=== PATIENT | female | born 1960 | race Caucasian/White ===

== ENCOUNTER 2016-12-28 17:13 | Inpatient (IN) | payer BC, OTHER ==
[2016-12-28] VITALS (13 sets, daily range): BP systolic 80–124; BP diastolic 44–75; PULSE 83–143; TEMP 37; O2SAT 93–99; Ht 162.6 cm; Wt 67.6 kg
[~2016-12-28] VITALS: Ht 162.6 cm; Wt 67.6 kg
[2016-12-28] MEDS ORDERED: SODIUM CHLORIDE 0.9% 1000ML 500 ML IV ONE ×2 (17:28)
[2016-12-28] MEDS ORDERED: ACETAMINOPHEN 325 MG TAB PO ONE (17:30)
--- NOTE | 2016-12-28 17:44 | EMERGENCY ROOM VISIT NOTE ---
History Report prepared by Parish: Wellington Crouch Under the Supervision of: Dr. Nette Rodriguez M.D. First contact with patient: 17:27 Chief Complaint: FEVER Stated Complaint: FEVER 104 DEGREE History of Present Illness The patient is a 56 year old female who presents to the Emergency Room with complaints of a worsening fever for the past week and a half which got to 104 today. She additionally is complaining of back pain, and earlier in the week she was having hematuria and pain with urination, and she states that last night she vomited. She is not currently on any antibiotics. The patient states that she has a history of anemia, and she is bipolar. She states that she has not had any recent medication changes. She additionally states that her white blood cell count is chronically high. Source of History: patient Onset: a week and a half ago Position: other (global) Quality: other (fever) Timing: worsening Associated Symptoms: + vomiting, + back pain, + urinary symptoms Review of Systems See HPI for pertinent positives & negatives. A total of 10 systems reviewed and were otherwise negative. Past Medical & Surgical Medical Problems: (1) Bipolar disorder (2) Kidney stone (3) Pernicious anemia (4) Sepsis Family History Heart disease Hypertension Kidney disease Kidney stones Seizures Social History Smoking Status: Current Every Day Smoker Marital Status: Housing Status: lives with family Occupation Status: employed Current/Historical Medications Scheduled Citalopram (Citalopram Hydrobromide), 30 MG PO QAM Cyanocobalamin (Cyanocobalamin), 1 DOSE INJ [id number] Doxepin (Sinequan), 50 MG PO HS Hydrochlorothiazide (Hydrochlorothiazide), 25 MG PO DAILY Levothyroxine Sodium (Synthroid), 88 MCG PO QAM Lorazepam (Ativan), 1 MG PO HS Simvastatin (Zocor), 40 MG PO DAILY Topiramate (Topamax), 100 MG PO QPM Topiramate (Topamax), 50 MG PO QAM Allergies Coded Allergies: Iron Dextran (Unverified Allergy, Unknown, RASH, 12/28/16) Physical Exam Vital Signs Date Time Temp Pulse Resp B/P (MAP) Pulse Ox O2 Delivery O2 Flow Rate FiO2 12/28/16 19:38 77/52 12/28/16 19:37 77 18 77/52 98 Room Air 12/28/16 19:36 78 18 96 9/19/17 19:31 76 21 94 12/28/16 19:26 74 20 94 12/28/16 19:24 72/43 12/28/16 19:23 72 18 72/43 98 Room Air 12/28/16 19:21 78 21 95 12/28/16 19:18 58/43 12/28/16 19:16 75 20 95 12/28/16 19:11 76 22 93 12/28/16 19:06 77 24 93 12/28/16 19:02 80/47 12/28/16 19:01 79 24 94 12/28/16 18:56 79 22 93 12/28/16 18:54 77/50 12/28/16 18:50 37.2 12/28/16 18:31 99/56 12/28/16 18:13 91 27 93 12/28/16 18:01 86/63 12/28/16 17:58 93 28 92 12/28/16 17:49 99 98/61 97 Room Air 12/28/16 17:48 97 Room Air 12/28/16 17:43 98 27 12/28/16 17:41 100 12/28/16 17:39 98/61 12/28/16 17:22 39.3 108 22 90/58 93 Room Air Physical Exam Vital signs reviewed. General: Ill-appearing female, in no significant distress. HEENT: No scleral icterus, PERRLA, neck supple. Atraumatic. Cardiovascular: Regular rate and rhythm, no extra sounds. Pulmonary: Clear to auscultation bilaterally, normal work of breathing. Abdomen: Soft, nontender, nondistended, positive bowel sounds. Musculoskeletal: No CVA tenderness. Atraumatic, no peripheral edema. Neurologic: Patient awake alert and oriented x 3, full strength in all 4 extremities. Cranial nerves 2 through 12 grossly intact. Skin: Warm, dry, no rash Medical Decision & Procedures ER Provider Diagnostic Interpretation: Radiology results as stated below per my review and radiologist interpretation: CHEST ONE VIEW PORTABLE CLINICAL HISTORY: Sepsis dyspnea COMPARISON STUDY: No previous studies for comparison. FINDINGS: The bones soft tissues and hemidiaphragms are normal. The cardiomediastinal silhouette is normal. The lungs are clear. The pulmonary vasculature is normal. IMPRESSION: Negative chest. The above report was generated using voice recognition software. It may contain grammatical, syntax or spelling errors. Electronically signed by: Malik Hensley M.D. 12/28/2016 6:07 PM Dictated Date/Time: 12/28/2016 6:07 PM ABD/PELVIS NO IV OR ORAL CONT CT DOSE: 275.32 mGy.cm HISTORY: Fever fever, back pain, sepsis. Stone TECHNIQUE: Multiaxial CT images of the abdomen and pelvis were performed without contrast. A dose lowering technique was utilized adhering to the principles of ALARA. COMPARISON STUDY: None. FINDINGS: Lung bases are clear. Liver spleen and pancreas appear unremarkable. 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 These are considered stable. Right kidney is negative for calcification or hydronephrosis. Left kidney demonstrates moderate edematous change and hydronephrosis. There is a 5 mm calculus at the left ureteropelvic junction. Moderate edematous and infiltrative change left kidney suggest potential superimposed pyelonephritis. Bowel pattern suggests a mild reactive ileus. There are no obstructive characteristics. The appendix is normal. Bladder contains a Herrera catheter. No significant free fluid within the pelvic cul-de-sac. IMPRESSION: 1. 5 mm obstructing calculus proximal left ureter at the left ureteropelvic junction. 2. Edematous change of left kidney with infiltrative change of the left renal perinephric fat. 3. the possibility of superimposed pyelonephritis must be considered. The above report was generated using voice recognition software. It may contain grammatical, syntax or spelling errors. Electronically signed by: Malik Hensley M.D. 12/28/2016 6:53 PM Dictated Date/Time: 12/28/2016 6:49 PM Laboratory Results 12/28/16 17:48 Red Blood Count 5.01, Mean Corpuscular Volume 85.6, Mean Corpuscular Hemoglobin 29.5, Mean Corpuscular Hemoglobin Concent 34.5, Mean Platelet Volume 10.5, Neutrophils (%) (Auto) 85.7, Lymphocytes (%) (Auto) 3.8, Monocytes (%) (Auto) 9.4, Eosinophils (%) (Auto) 0.0, Basophils (%) (Auto) 0.1, Neutrophils # (Auto) 24.31, Lymphocytes # (Auto) 1.08, Monocytes # (Auto) 2.68, Eosinophils # (Auto) 0.01, Basophils # (Auto) 0.02 Test 12/28/16 17:48 12/28/16 18:31 12/28/16 19:15 White Blood Count 28.38 K/uL (4.8-10.8) Red Blood Count 5.01 M/uL (4.2-5.4) Hemoglobin 14.8 g/dL (12.0-16.0) Hematocrit 42.9 % (37-47) Mean Corpuscular Volume 85.6 fL (80-100) Mean Corpuscular Hemoglobin 29.5 pg (25-34) Mean Corpuscular Hemoglobin Concent 34.5 g/dl (32-36) Platelet Count 325 K/uL (130-400) Mean Platelet Volume 10.5 fL (7.4-10.4) Neutrophils (%) (Auto) 85.7 % Lymphocytes (%) (Auto) 3.8 % Monocytes (%) (Auto) 9.4 % Eosinophils (%) (Auto) 0.0 % Basophils (%) (Auto) 0.1 % Neutrophils # (Auto) 24.31 K/uL (1.4-6.5) Lymphocytes # (Auto) 1.08 K/uL (1.2-3.4) Monocytes # (Auto) 2.68 K/uL (0.11-0.59) Eosinophils # (Auto) 0.01 K/uL (0-0.5) Basophils # (Auto) 0.02 K/uL (0-0.2) RDW Standard Deviation 42.5 fL (36.4-46.3) RDW Coefficient of Variation 13.6 % (11.5-14.5) Immature Granulocyte % (Auto) 1.0 % Immature Granulocyte # (Auto) 0.28 K/uL (0.00-0.02) Red Blood Cell Morphology Unremarkable Prothrombin Time 11.2 SECONDS (9.0-12.0) Prothromb Time International Ratio 1.0 (0.9-1.1) Activated Partial Thromboplast Time 32.3 SECONDS (21.0-31.0) Partial Thromboplastin Ratio 1.2 Est Creatinine Clear Calc Drug Dose 26.5 ml/min Total Bilirubin 1.1 mg/dl (0.2-1) Aspartate Amino Transf (AST/SGOT) 18 U/L (15-37) Alanine Aminotransferase (ALT/SGPT) 27 U/L (12-78) Alkaline Phosphatase 165 U/L (45-117) Total Protein 7.6 gm/dl (6.4-8.2) Albumin 3.1 gm/dl (3.4-5.0) Globulin 4.5 gm/dl (2.5-4.0) Albumin/Globulin Ratio 0.7 (0.9-2) Procalcitonin 3.84 ng/ml (0-0.5) Chemistry Specimen Hemolysis Urine Color DK YELLOW Urine Appearance CLOUDY (CLEAR) Urine pH 5.0 (4.5-7.5) Urine Specific [place] 1.019 (1.000-1.030) Urine Protein 1+ (NEG) Urine Glucose (UA) NEG (NEG) Urine Ketones NEG (NEG) Urine Occult Blood 2+ (NEG) Urine Nitrite POS (NEG) Urine Bilirubin 1+ (NEG) Urine Urobilinogen NEG (NEG) Urine Leukocyte Esterase MODERATE (NEG) Urine WBC (Auto) >30 /hpf (0-5) Urine RBC (Auto) 0-4 /hpf (0-4) Urine Hyaline Casts (Auto) 0 /lpf (0-5) Urine Epithelial Cells (Auto) 20-30 /lpf (0-5) Urine Bacteria (Auto) 4+ (NEG) Urine Pathogenic Casts See comments /lpf (0) Bedside Lactic Acid Venous 0.82 mmol/L (0.90-1.70) Laboratory results per my review. Medications Administered Medications (Trade) Dose Ordered Sig/Jimmy Route Start Time Stop Time Status Last Admin Dose Admin Sodium Chloride 500 ml @ 999 mls/hr Q31M ONCE IV 12/28/16 17:28 12/28/16 17:58 DC 12/28/16 17:50 999 MLS/HR Sodium Chloride 500 ml @ 999 mls/hr Q31M ONCE IV 12/28/16 17:28 12/28/16 17:58 DC 12/28/16 17:28 999 MLS/HR Acetaminophen (Tylenol Tab) 650 mg ONE ONCE PO 12/28/16 17:30 12/28/16 17:31 DC 12/28/16 17:58 650 MG Piperacillin Sod/ Tazobactam Sod (Zosyn Iv) 4.5 gm NOW STAT IV 12/28/16 18:23 12/28/16 18:24 DC 12/28/16 18:49 4.5 GM Potassium Chloride (Kcl 10 Meq / Wtr) 20 meq NOW STAT IV 12/28/16 18:58 12/28/16 18:59 DC 12/28/16 19:14 10 MEQ Sodium Chloride 1,000 ml @ 999 mls/hr Q1H1M STAT IV 12/28/16 19:03 12/28/16 20:03 DC 12/28/16 19:03 999 MLS/HR Levofloxacin (Levaquin / D5W) 750 mg NOW STAT IV 12/28/16 19:03 12/28/16 19:04 DC 12/28/16 19:22 750 MG Lorazepam (Ativan Inj) 0.5 mg Q4H PRN IV 12/28/16 19:30 01/27/17 19:29 12/28/16 22:45 0.5 MG Levothyroxine Sodium 50 mcg/ Syringe 2.5 ml @ 2 mls/min DAILY@09 IV 12/28/16 19:30 01/27/17 19:29 12/28/16 22:24 2 MLS/MIN ECG Indication: other (fever) Rate (beats per minute): 97 Rhythm: normal sinus Findings: no ectopy, other (Non-specific T wave abnoramlity in the anterolateral leads) ED Course 1727: Past medical records reviewed. The patient was evaluated in room A4. A complete history and physical examination was performed. 1728: Sodium Chloride 500 ml @ 999 mls/hr IV, Sodium Chloride 500 ml @ 999 mls/ hr IV 1730: Tylenol Tab 650mg PO 1823: Zosyn IV 4.5gm IV 1855: I reevaluated the patient, and her blood pressure was still low. I discussed the treatment plan with her. 1858: Potassium Chloride 20meq IV 1903: Levofloxacin 750mg IV, Sodium Chloride 1000 ml @ 999 mls/hr IV 1905: I reviewed the patient's case with Dr. Daily. She will evaluate the patient for further management. Medical Decision Differential Diagnoses Influenza, other viral illness, pneumonia, urinary tract infection, metabolic abnormality, medication effect, cellulitis, meningitis, intra-abdominal source. This patient was evaluated and appeared to be septic, blood pressure noted to be in the 80s systolic. Patient is febrile. She was given Tylenol 650 mg orally. IV access was obtained and blood cultures were drawn. Patient's pannicular lactic acid is normal. She did require resuscitation with 2 L of normal saline solution. CT scan of the abdomen and pelvis was performed and reveals an obstructing ureteral stone. Patient's white blood cell count is 28, 000. She was given IV Zosyn, IV Levaquin. UA is consistent with infection. Dr. Newton of urology was consulted and has agreed to evaluate the patient for surgical management. I did speak with the hospitalist service will evaluate the patient for medical management. Patient is aware of the plan and agrees. Medication Reconcilliation Current Medication List: was personally reviewed by me Blood Pressure Screening Patient's blood pressure: Low blood pressure Managed by the hospitalist Consults Time Called: 1851 Consulting Physician: Dr. Daily Returned Call: [phone] I reviewed the patient's case with Dr. Daily. She will evaluate the patient for further management. Impression Primary Impression: Sepsis Additional Impressions: Hydronephrosis with renal and ureteral calculous obstruction UTI (urinary tract infection) Critical Care I have personally spent greater than 35 minutes of critical care time in the direct management of this patient. This includes bedside care, interpretation of diagnostic studies, and testing, discussion with consultants, patient, and family members, and other required patient management activities. This 35 minutes is in excess of all separately billable procedures. Scribe Attestation The scribe's documentation has been prepared under my direction and personally reviewed by me in its entirety. I confirm that the note above accurately reflects all work, treatment, procedures, and medical decision making performed by me. Departure Information Dispostion Being Evaluated By Hospitalist Referrals No Doctor, Assigned (PCP) Patient Instructions My [facility] Problem Qualifiers
[2016-12-28] MEDS ORDERED: OPTIRAY 320 IV PRN (17:45)
[2016-12-28 18:05] LABS: HEMATOCRIT 42.9 % (37-47); MEAN CELL VOLUME 85.6 fL (80-100); MEAN CORPUSCULAR HEMOGLOBIN 29.5 pg (25-34); MEAN CORPUSCULAR HGB CONC 34.5 g/dl (32-36); MEAN PLATELET VOLUME 10.5 fL (7.4-10.4); PLATELET COUNT 325 K/uL (130-400); RED BLOOD COUNT 5.01 M/uL (4.2-5.4); WHITE BLOOD COUNT 28.38 K/uL (4.8-10.8)
--- NOTE | 2016-12-28 18:08 | DIAGNOSTIC IMAGING REPORT ---
CHEST ONE VIEW PORTABLE CLINICAL HISTORY: Sepsis dyspnea COMPARISON STUDY: No previous studies for comparison. FINDINGS: The bones soft tissues and hemidiaphragms are normal. The cardiomediastinal silhouette is normal. The lungs are clear. The pulmonary vasculature is normal. IMPRESSION: Negative chest. The above report was generated using voice recognition software. It may contain grammatical, syntax or spelling errors. Electronically signed by: Malik Hensley M.D. 12/28/2016 6:07 PM Dictated Date/Time: 12/28/2016 6:07 PM
[2016-12-28] MEDS ORDERED: PIPERACILLIN/TAZOBACTAM 4.5 GM/100ML D5W IV STA (18:23)
[2016-12-28] MEDS ORDERED: CYNI1000 INJ (18:24)
[2016-12-28] MEDS ORDERED: SIMV40TA2 PO (18:24)
[2016-12-28] MEDS ORDERED: DOXE50CA3 PO (18:24)
[2016-12-28] MEDS ORDERED: CLX/20 PO (18:24)
[2016-12-28] MEDS ORDERED: ATV/1 PO (18:24)
[2016-12-28] MEDS ORDERED: TOPI50TA16 PO ×2 (18:24)
[2016-12-28] MEDS ORDERED: HYDR25TA5 PO (18:24)
[2016-12-28] MEDS ORDERED: SYN88 PO (18:24)
[2016-12-28 18:27] LABS: BUN/CREATININE RATIO 9.9 (10-20); CALCIUM 8.7 mg/dl (8.5-10.1); CREATININE 2.1 mg/dl (0.60-1.20); POTASSIUM 2.7 mmol/L (3.5-5.1)
[2016-12-28 18:28] LABS: PARTIAL THROMBOPLASTIN RATIO 1.2; PROTHROMBIN TIME (PATIENT) 11.2 SECONDS (9.0-12.0)
[2016-12-28 18:31] LABS: ALB/GLOB RATIO 0.7 (0.9-2)
[2016-12-28 18:32] LABS: BASO % 0.1 %; BASO ABS # 0.02 K/uL (0-0.2); COMPLETE YES; LYMPH % 3.8 %; LYMPH ABS # 1.08 K/uL (1.2-3.4); MONO % 9.4 %; NEUT % 85.7 %
--- NOTE | 2016-12-28 18:55 | DIAGNOSTIC IMAGING REPORT ---
ABD/PELVIS NO IV OR ORAL CONT CT DOSE: 275.32 mGy.cm HISTORY: Fever fever, back pain, sepsis. Stone TECHNIQUE: Multiaxial CT images of the abdomen and pelvis were performed without contrast. A dose lowering technique was utilized adhering to the principles of ALARA. COMPARISON STUDY: None. FINDINGS: Lung bases are clear. Liver spleen and pancreas appear unremarkable. 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 These are considered stable. Right kidney is negative for calcification or hydronephrosis. Left kidney demonstrates moderate edematous change and hydronephrosis. There is a 5 mm calculus at the left ureteropelvic junction. Moderate edematous and infiltrative change left kidney suggest potential superimposed pyelonephritis. Bowel pattern suggests a mild reactive ileus. There are no obstructive characteristics. The appendix is normal. Bladder contains a Herrera catheter. No significant free fluid within the pelvic cul-de-sac. IMPRESSION: 1. 5 mm obstructing calculus proximal left ureter at the left ureteropelvic junction. 2. Edematous change of left kidney with infiltrative change of the left renal perinephric fat. 3. the possibility of superimposed pyelonephritis must be considered. The above report was generated using voice recognition software. It may contain grammatical, syntax or spelling errors. Electronically signed by: Malik Hensley M.D. 12/28/2016 6:53 PM Dictated Date/Time: 12/28/2016 6:49 PM
[2016-12-28] MEDS ORDERED: POTASSIUM CHLORIDE 10 MEQ / 100ML WTR IV STA (18:58)
[2016-12-28] MEDS ORDERED: LEVAQUIN 750MG / 150ML D5W IV STA (19:03)
[2016-12-28] MEDS ORDERED: SODIUM CHLORIDE 0.9% 1000ML 1,000 ML IV STA (19:03)
[2016-12-28 19:10] LABS: URINE APPEARANCE CLOUDY (CLEAR); URINE COLOR DK YELLOW; URINE EPITHELIAL CELL AUTO 20-30 /lpf (0-5); URINE NITRITE POS (NEG); URINE SPECIFIC GRAVITY 1.019 (1.000-1.030); UROBILINOGEN NEG (NEG); ZZURINE CULT IF INDIC CATH YES
--- NOTE | 2016-12-28 19:10 | History and Physical ---
History & Physical Date & Time of Service: Dec 28, 2016 at 19:10 Chief Complaint: Fever 104 Degree Primary Care Physician: No Doctor, Assigned History of Present Illness Source: patient, family Dora is a 56 yo F with hypertension, bipolar disorder, and hypothyroidism who presents with feeling unwell. She reports she has felt unwell the last few days and this morning was nauseated and threw up all her medications. She reports she had a fever the last few days which was 104F today. She had some vague back pain, but reports she usually does not feel any pain. She was septic upon arrival with hypotension, a WBC of 28 and a fever of 38.9. She was found to have a 5mm obstructing kidney stone on CT scan. She has been started on broad spectrum abx. She currently feels somewhat better, and is sitting comfortably speaking full sentences. She denies any past hx of kidney stones. Past Medical/Surgical History PMHx: Bipolar Hypothyroidism Depression HTN PSHx: Nasal septum surgery Family History Heart disease Hypertension Kidney disease Kidney stones Seizures Social History Smoking Status: Current Every Day Smoker Smokeless Tobacco Use: No Alcohol Use: none Drug Use: none Marital Status: Housing status: lives with family Occupational Status: employed Immunizations History of Influenza Vaccine: Unknown History of Tetanus Vaccine?: Unknown History of Pneumococcal: Unknown History of Hepatitis B Vaccine: Unknown Multi-Drug Resistant Organisms History of MDRO: No Allergies Coded Allergies: Iron Dextran (Unverified Allergy, Unknown, RASH, 12/28/16) Home Medications Scheduled Citalopram (Citalopram Hydrobromide), 30 MG PO QAM Cyanocobalamin (Cyanocobalamin), 1 DOSE INJ [id number] Doxepin (Sinequan), 50 MG PO HS Hydrochlorothiazide (Hydrochlorothiazide), 25 MG PO DAILY Levothyroxine Sodium (Synthroid), 88 MCG PO QAM Lorazepam (Ativan), 1 MG PO HS Simvastatin (Zocor), 40 MG PO DAILY Topiramate (Topamax), 100 MG PO QPM Topiramate (Topamax), 50 MG PO QAM Review of Systems See HPI for pertinent positives & negatives. A total of 10 systems reviewed and were otherwise negative. Physical Exam Vital Signs Date Time Temp Pulse Resp B/P (MAP) Pulse Ox O2 Delivery O2 Flow Rate FiO2 12/28/16 18:50 37.2 12/28/16 18:31 99/56 12/28/16 18:13 91 27 93 12/28/16 18:01 86/63 12/28/16 17:58 93 28 92 12/28/16 17:49 99 98/61 97 Room Air 12/28/16 17:48 97 Room Air 12/28/16 17:43 98 27 12/28/16 17:41 100 12/28/16 17:39 98/61 12/28/16 17:22 39.3 108 22 90/58 93 Room Air General Appearance: WD/WN, no apparent distress Head: normocephalic, atraumatic Eyes: normal inspection, PERRL ENT: hearing grossly normal Neck: supple, no JVD Respiratory/Chest: lungs clear, normal breath sounds, no respiratory distress Cardiovascular: regular rate, rhythm, no JVD, no murmur, normal peripheral pulses Abdomen/GI: normal bowel sounds, non tender, soft Back: no muscle spasm, + left CVA tenderness Extremities/Musculoskelatal: no calf tenderness, no pedal edema Neurologic/Psych: alert, oriented x 3 Skin: warm/dry, no rash Diagnostics Laboratory Results Results Past 24 Hours Test 12/28/16 17:48 12/28/16 18:31 Range/Units White Blood Count 28.38 4.8-10.8 K/uL Red Blood Count 5.01 4.2-5.4 M/uL Hemoglobin 14.8 12.0-16.0 g/dL Hematocrit 42.9 37-47 % Mean Corpuscular Volume 85.6 80-100 fL Mean Corpuscular Hemoglobin 29.5 25-34 pg Mean Corpuscular Hemoglobin Concent 34.5 32-36 g/dl Platelet Count 325 130-400 K/uL Mean Platelet Volume 10.5 7.4-10.4 fL Neutrophils (%) (Auto) 85.7 % Lymphocytes (%) (Auto) 3.8 % Monocytes (%) (Auto) 9.4 % Eosinophils (%) (Auto) 0.0 % Basophils (%) (Auto) 0.1 % Neutrophils # (Auto) 24.31 1.4-6.5 K/uL Lymphocytes # (Auto) 1.08 1.2-3.4 K/uL Monocytes # (Auto) 2.68 0.11-0.59 K/uL Eosinophils # (Auto) 0.01 0-0.5 K/uL Basophils # (Auto) 0.02 0-0.2 K/uL RDW Standard Deviation 42.5 36.4-46.3 fL RDW Coefficient of Variation 13.6 11.5-14.5 % Immature Granulocyte % (Auto) 1.0 % Immature Granulocyte # (Auto) 0.28 0.00-0.02 K/uL Red Blood Cell Morphology Unremarkable Prothrombin Time 11.2 9.0-12.0 SECONDS Prothromb Time International Ratio 1.0 0.9-1.1 Activated Partial Thromboplast Time 32.3 21.0-31.0 SECONDS Partial Thromboplastin Ratio 1.2 Sodium Level 127 136-145 mmol/L Potassium Level 2.7 3.5-5.1 mmol/L Chloride Level 90 98-107 mmol/L Carbon Dioxide Level 25 21-32 mmol/L Anion Gap 12.0 3-11 mmol/L Blood Urea Nitrogen 21 7-18 mg/dl Creatinine 2.10 0.60-1.20 mg/dl Est Creatinine Clear Calc Drug Dose 26.5 ml/min Estimated GFR () 30.2 Estimated GFR (Non- 26.0 BUN/Creatinine Ratio 9.9 10-20 Random Glucose 103 70-99 mg/dl Calcium Level 8.7 8.5-10.1 mg/dl Total Bilirubin 1.1 0.2-1 mg/dl Aspartate Amino Transf (AST/SGOT) 18 15-37 U/L Alanine Aminotransferase (ALT/SGPT) 27 12-78 U/L Alkaline Phosphatase 165 45-117 U/L Total Protein 7.6 6.4-8.2 gm/dl Albumin 3.1 3.4-5.0 gm/dl Globulin 4.5 2.5-4.0 gm/dl Albumin/Globulin Ratio 0.7 0.9-2 Procalcitonin 3.84 0-0.5 ng/ml Chemistry Specimen Hemolysis Microbiology Results 12/28/16 Blood Culture, Received Pending 12/28/16 Blood Culture, Received Pending CXR normal Impression Assessment and Plan 56 yo F - sepsis from infected kidney stone - to go to OR for stent placement emergently. Sepsis from L sided kidney stone Urology aware, Dr Newton present Starting Levophed due to persistent hypotension BCx obtained prior to Abx - will continue Zosyn and Vancomycin. Admit to ICU after surgery - Dr Anglin informed. On r/v, blood pressure has improved to 117 systolic. Holding all PO meds, will start post-op Pre-op CXR and EKG completed Hypokalemia Received 20mEq of K riders Will check a BMP post-op to evaluate Hypertension Will hold HCTZ for now Hypothyroidism Will convert to 50mcg IV Synthroid Bipolar affective disorder Holding home medications, restart when able VTE: SCDs. Code status: Full Dispo: OR then ICU Attending Addendum: I have physically seen and examined this patient, have directed the resident's medical activities, and agree with the H&P as noted above with the following exceptions as noted. The patient is awake, alert and oriented 3, well-developed and well-nourished , normocephalic and atraumatic, lying in bed and in mild distress. HEENT--PERRL, EOMI, mucous membranes and oropharynx dry. Neck--supple, no JVD or bruits, thyroid normal, trachea midline, no adenopathy. Heart--tachycardic and regular, no murmurs, rubs or gallops. Lungs--coarse breath sounds with wheezes throughout, no respiratory distress, no accessory muscle use. Abdomen--normal bowel sounds and soft, left CVA tenderness. Nondistended, no hernias or masses, no organomegaly. Extremities--no cyanosis, clubbing or edema. There are good distal pulses b/l. Dermatologic--normal skin turgor, normal color, warm and dry, no abnormal lymph nodes, no rash. Neurologic--cranial nerves II through XII grossly intact. Rheumatologic--normal range of motion, nontender, muscles and joints. Psychiatric--normal affect. Assessment and Plan: 1. 5 mm left UPJ obstructing kidney stone/left sided pyelonephritis/septic shock/acute kidney injury-- During assessment in the ED, the patient became acutely hypotensive with systolic blood pressure to a low of 74. The patient had already been receiving 2 L normal saline. She had been started on levofloxacin 500 mg IV, and Zosyn 4.5 g IV. Patient was given albumin 25 g IV, with repeat to be done in one hour. We started her on levophed infusion with titration parameters. Patient was seen by Dr. Newton from urology in the ED, who then took the patient to the OR with successful ureteral stent placement. The patient was then admitted to the ICU. She'll be continued on the following: Albumin 25 g IV every 4 hours 6 doses. Zosyn 3.375 mg IV every 8 hours. Vancomycin IV per pharmacokinetic dosing. Normal saline with potassium chloride 20 mEq 100 ML's per hour. CBC with differential, chemistry profile and magnesium levels every 6 hours for 24 hours. Acetaminophen 1000 mg IV every 8 hours when necessary. Lorazepam 0.5-1 mg IV every 4 hours when necessary. Hold HCTZ 25 mg by mouth daily. Bipolar disorder-- When taking by mouth: Continue Topamax 50 mg by mouth every morning and 100 mg by mouth every afternoon. Doxepin 50 mg by mouth at bedtime. Citalopram 30 mg by mouth every morning. Lorazepam as noted above. Hypothyroidism-- Continue levothyroxine sodium 88g by mouth or IV equivalent 44 g. Hyperlipidemia-- When taking by mouth: Continue simvastatin 40 mg by mouth daily. Level of Care Critical Care Advanced Directives Existing Advance Directive: No Existing Living Will: No Existing Power of Jewel Bearing Facer: No Resuscitation Status FULL RESUSCITATION VTE Prophylaxis VTE Risk Assessment Done? Y/N: Yes Risk Level: Moderate Given or contraindicated: SCD's Social Service Consult None Apply Note Total Time: Critical Care 30 - 74 minutes Resident Tracking Resident Involvement: Resident Care Provided Care Provided: Adult Hospital Medicine
[2016-12-28 19:14] LABS: MANUAL MICROSCOPIC REQUIRED? NO; REVIEW REQ? YES; URINE BILIRUBIN 1+ (NEG)
[2016-12-28] MEDS ORDERED: ONDANSETRON INJ 2 MG/ML 2 ML VIAL IV PRN (19:30)
[2016-12-28] MEDS ORDERED: ACETAMINOPHEN 325 MG TAB PO PRN (19:30)
[2016-12-28] MEDS ORDERED: ALUMINUM/MAGNESIUM/SIMETH (MAALOX MAX) 30 ML UDC PO PRN (19:30)
[2016-12-28] MEDS ORDERED: POLYETHYLENE (MIRALAX) 17 GM PACK PO PRN (19:30)
[2016-12-28] MEDS ORDERED: MAGNESIUM HYDROXIDE SUSP 30 ML UDC PO PRN (19:30)
[2016-12-28] MEDS ORDERED: NOREPINEPHRINE BIT INJ 8 MG in DEXTROSE 5% 500ML 500 ML IV PRN (19:45)
[2016-12-28] MEDS ORDERED: ALBUMIN HUMAN 25% 12.5 GM/50 ML VIAL IV ONE ×3 (19:51→21:00)
[2016-12-28] MEDS ORDERED: VANCOMYCIN INJ 1,000 MG in SODIUM CHLORIDE 0.9% 250ML 250 ML IV STA (20:12)
--- NOTE | 2016-12-28 20:18 | Urology Consultation ---
History General Date of Service: Dec 28, 2016. Primary Care Physician: No Doctor, Assigned History of Present Illness 56 y/o female with history of bipolar disease who is a poor historian . She is here with her sister gives the history and who reports she has been depressed but starting 2 weeks ago she became lethargic . She had hematuria over a week ago and saw a doctor . She gave a urine sample to her doctor who told her it was clear , The next day she complained of soreness in her flank and she had a temp of 102 . This was Last . She has become increasingly sick and developed incontinence and had diarrhea . Finally her temp was 103 today and the sister insisted on bringing her to the ER, She presents hypotensive with a wbc of [address] that shows a stone at the l upj with a swollen kidney but modest hydronephrosis. She is being resuscitated in the ER with pressoes and fluid and anesthesia is coming to evaluate her for a stent Laboratory Labs were reviewed and are within normal limits unless listed below. Labs are available in the chart and at [facility] Problem List Medical Problems: (1) Hydronephrosis with renal and ureteral calculous obstruction Status: Acute Past History alcohol addiction, bipolar disorder Additional Comments: pelvic mesh surgery foot surgery Family History Heart disease Hypertension Kidney disease Kidney stones Seizures Social History Alcohol: history of alcohol abuse (quit 2 years ago) Marital status: Occupation status: employed History of MDRO No Allergies Coded Allergies: Iron Dextran (Unverified Allergy, Unknown, RASH, 12/28/16) Medications Home Medications: Home Meds and Scripts Medications Dose Route/Sig Max Daily Dose Days Date Category Ativan (Lorazepam) 1 Mg Tab 1 Mg PO HS 12/28/16 Reported Hydrochlorothiazide 25 Mg Tab 25 Mg PO DAILY 12/28/16 Reported Zocor (Simvastatin) 40 Mg Tab 40 Mg PO DAILY 12/28/16 Reported Citalopram Hydrobromide (Citalopram) 20 Mg Tab 30 Mg PO QAM 12/28/16 Reported Synthroid (Levothyroxine Sodium) 88 Mcg Tab 88 Mcg PO QAM 12/28/16 Reported Topamax (Topiramate) 50 Mg Tab 50 Mg PO QAM 12/28/16 Reported Topamax (Topiramate) 50 Mg Tab 100 Mg PO QPM 30 12/28/16 Reported Cyanocobalamin 1,000 Mcg/Ml Inj 1 Dose INJ [id number] 12/28/16 Reported Sinequan (Doxepin HCl) 50 Mg Cap 50 Mg PO HS 12/28/16 Reported Inpatient Medications: Current Inpatient Medications Medications (Trade) Dose Ordered Sig/Jimmy Route Start Time Stop Time Status Last Admin Dose Admin Ioversol (Optiray 320) 111 ml UD PRN IV 12/28/16 17:45 01/01/17 17:44 Sodium Chloride 1,000 ml @ 999 mls/hr Q1H1M STAT IV 12/28/16 19:03 12/28/16 20:03 12/28/16 19:03 999 MLS/HR Acetaminophen (Tylenol Tab) 650 mg Q4H PRN PO 12/28/16 19:30 01/27/17 19:29 Al Hydrox/Mg Hydrox/Simethicone (Maalox Max Susp) 15 ml Q4H PRN PO 12/28/16 19:30 01/27/17 19:29 Magnesium Hydroxide (Milk Of Magnesia Susp) 30 ml Q12H PRN PO 12/28/16 19:30 01/27/17 19:29 Ondansetron HCl (Zofran Inj) 4 mg Q6H PRN IV 12/28/16 19:30 01/27/17 19:29 Polyethylene (Miralax Powder Packet) 17 gm DAILY PRN PO 12/28/16 19:30 01/27/17 19:29 Piperacillin Sod/ Tazobactam Sod 4.5 gm/Dextrose 120 ml @ 200 mls/hr Q6 IV 12/29/16 00:00 01/08/17 00:00 UNV Lorazepam (Ativan Inj) 0.5 mg Q4H PRN IV 12/28/16 19:30 01/27/17 19:29 UNV Levothyroxine Sodium 50 mcg/ Syringe 2.5 ml @ 2 mls/min DAILY@09 IV 12/28/16 19:30 01/27/17 19:29 UNV Norepinephrine Bitartrate 8 mg/ Dextrose 508 ml @ 0 mls/hr Q0M PRN IV 12/28/16 19:45 01/27/17 19:44 Albumin Human (Albumin 25%) 25 gm ONE ONCE IV 12/28/16 20:00 12/28/16 20:01 Albumin Human (Albumin 25%) 12.5 gm ONE ONCE IV 12/28/16 21:00 12/28/16 21:01 Albuterol/ Ipratropium (Duoneb) 3 ml QIDR INH 12/28/16 20:00 01/27/17 19:59 Review of Systems Review of Systems Constitutional: + fever Gastrointestinal: No abdominal pain Cardiovascular: No chest pain Respiratory: No shortness of breath Psychologic / Mental: + see HPI Female : + blood in urine, + leaking urine, + kidney stones Physical Exam Vital Signs: Vital Signs Past 12 Hours Date Time Temp Pulse Resp B/P (MAP) Pulse Ox O2 Delivery O2 Flow Rate FiO2 12/28/16 19:37 77 18 77/52 98 Room Air 12/28/16 19:23 72 18 72/43 98 Room Air 12/28/16 18:50 37.2 12/28/16 18:31 99/56 12/28/16 18:13 91 27 93 12/28/16 18:01 86/63 12/28/16 17:58 93 28 92 12/28/16 17:49 99 98/61 97 Room Air 12/28/16 17:48 97 Room Air 12/28/16 17:43 98 27 12/28/16 17:41 100 12/28/16 17:39 98/61 12/28/16 17:22 39.3 108 22 90/58 93 Room Air Physical Exam: General Appearance: + mild distress (pt reports having an extremely high pain tolerence) ENT: normal ENT inspection Neck: supple Respiratory/Chest: + rhonchi Extremities: normal range of motion, no pedal edema, no calf tenderness Neurologic/Psychiatric: + depressed affect Skin: warm/dry Lymphatic: no adenopathy (pt with flat affect) Assessment & Plan Assessment & Plan Imaging: CT Treatment Planned: cystoscopy w/ stent wish to place stent as soon as anesthesia clears her She has had unasyn and leveqiun and is to get vancomycin
[2016-12-28] MEDS: ALBUT/IPRATROP 3MG/0.5MG NEB 3 ML VIAL INH SCH (20:26)
[2016-12-28] MEDS ORDERED: CONRAY 30% 150ML BOTTLE ONE (20:35)
[2016-12-28] MEDS ORDERED: PIPERACILL/TAZOBAC CONSULT ACTIVE PRN (20:45)
[2016-12-28] MEDS ORDERED: VANCOMYCIN CONSULT ACTIVE PRN (20:45)
[2016-12-28] MEDS ORDERED: VANCOMYCIN INJ 1,500 MG in SODIUM CHLORIDE 0.9% 500ML 500 ML IV SCH (20:45)
[2016-12-28] MEDS ORDERED: LEVALBUTEROL/IPRATROPIUM NEB INH SCH (21:00)
[2016-12-28] MEDS ORDERED: KETAMINE HCL INJ 50 MG/ML 10 ML VIAL ONE (21:12)
[2016-12-28] MEDS ORDERED: FENTANYL CITRATE INJ 50 MCG/1 ML 2 ML VIAL ONE (21:17)
[2016-12-28] MEDS ORDERED: PROPOFOL IV EMULSION 10 MG/ML 20 ML VIAL IV ONE (21:25)
[2016-12-28] MEDS ORDERED: LEVALBUTEROL 1.25MG/0.5ML NEB INH PRN (21:45)
[2016-12-28] MEDS ORDERED: IPRATROPIUM BROMIDE NEB SOLN 0.02% 2.5 ML VIAL INH PRN (21:45)
--- NOTE | 2016-12-28 21:45 | DIAGNOSTIC IMAGING REPORT ---
RETROGRADE INCLUDES KUB CLINICAL HISTORY: KUB W/ RETROGRADE TECHNIQUE: Image intensifier COMPARISON STUDY: CT examination same date FINDINGS: Initial images demonstrate moderate patient respiratory motion artifact. This is followed by successful wire placement with coaxial stent placement. Proximal aspect of the stent is located appropriately. IMPRESSION: Successful left ureteral stent placement The above report was generated using voice recognition software. It may contain grammatical, syntax or spelling errors. Electronically signed by: Malik Hensley M.D. 12/28/2016 9:44 PM Dictated Date/Time: 12/28/2016 9:43 PM
--- NOTE | 2016-12-28 21:48 | [facility] Post Operative Brief Note ---
Immediate Operative Summary Operative Date Dec 28, 2016. Pre-Operative Diagnosis Left upj stone, urosepsis Post-Operative Diagnosis Left upj stone, urosepsis Procedure(s) Performed Cystoscopy, Left ureteral stent placement Surgeon Dr. Newton Stevedoring Supervisor Surgeon(s) none Estimated Blood Loss 5ml Findings obstruction at l upj Specimens None Drains burger Disposition Surgical ICU
--- NOTE | 2016-12-28 21:54 | Anesthesiology Progress Note ---
Anesthesia Post Op Note Date & Time Dec 28, 2016 at 21:52 Vital Signs Pain Intensity: 0 Vital Signs Past 12 Hours Date Time Temp Pulse Resp B/P (MAP) Pulse Ox O2 Delivery O2 Flow Rate FiO2 12/28/16 20:41 92 21 99 12/28/16 20:36 84 19 111/70 100 12/28/16 20:31 84 17 131/78 100 12/28/16 20:28 83 18 97 Nasal Cannula 3.0 12/28/16 20:26 83 9 119/69 100 12/28/16 20:21 77 21 118/71 100 12/28/16 20:16 77 18 119/74 99 12/28/16 20:11 75 12 99 12/28/16 20:09 74/49 12/28/16 20:06 73 20 96 12/28/16 20:03 Room Air 12/28/16 20:01 75 21 96 12/28/16 19:56 76 24 95 12/28/16 19:51 76 22 95 12/28/16 19:46 76 26 76/ 95 12/28/16 19:41 77 13 96 12/28/16 19:38 77/52 12/28/16 19:37 77 18 77/52 98 Room Air 12/28/16 19:36 78 18 96 12/28/16 19:31 76 21 94 12/28/16 19:26 74 20 94 12/28/16 19:24 72/43 12/28/16 19:23 72 18 72/43 98 Room Air 12/28/16 19:21 78 21 95 12/28/16 19:18 58/43 12/28/16 19:16 75 20 95 12/28/16 19:11 76 22 93 12/28/16 19:06 77 24 93 12/28/16 19:02 80/47 12/28/16 19:01 79 24 94 12/28/16 18:56 79 22 93 12/28/16 18:54 77/50 12/28/16 18:50 37.2 12/28/16 18:31 99/56 12/28/16 18:13 91 27 93 12/28/16 18:01 86/63 12/28/16 17:58 93 28 92 12/28/16 17:49 99 98/61 97 Room Air 12/28/16 17:48 97 Room Air 12/28/16 17:43 98 27 12/28/16 17:41 100 12/28/16 17:39 98/61 12/28/16 17:22 39.3 108 22 90/58 93 Room Air Notes Mental Status: alert / awake / arousable, participated in evaluation Pt Amnestic to Procedure: Yes Nausea / Vomiting: adequately controlled Pain: adequately controlled Airway Patency, RR, SpO2: stable & adequate BP & HR: stable & adequate Hydration State: stable & adequate Anesthetic Complications: no major complications apparent The patient was hypotensive in the ER and started on norepinephrine. She was weaned off of it in the OR. She was brought to the ICU from the OR where she will be admitted. The patient is awake and her vital signs are now stable. I spoke to Dr. Anglin who will follow her in the ICU.
[2016-12-28] MEDS: LEVOTHYROXINE SODIUM INJ 50 MCG in SYRINGE 0 ML IV SCH (22:24)
[2016-12-28] MEDS: LORAZEPAM 2 MG/ML 1 ML VIAL IV PRN (22:45)
[2016-12-28] MEDS ORDERED: ALBUMIN HUMAN 25% 12.5 GM/50 ML VIAL IV STA (22:56)
[2016-12-28] MEDS: NSS + 20MEQ KCL 1000ML 1,000 ML IV SCH (23:02)
[2016-12-28 23:07] LABS: BUN/CREATININE RATIO 9.7 (10-20); CALCIUM 7.2 mg/dl (8.5-10.1); CREATININE 1.9 mg/dl (0.60-1.20); MAGNESIUM 1.7 mg/dl (1.8-2.4); POTASSIUM 3.2 mmol/L (3.5-5.1)
[2016-12-28] MEDS ORDERED: LORAZEPAM 2 MG/ML 1 ML VIAL IV STA (23:09)
[2016-12-28] MEDS: MAGNESIUM SULFATE 1GM / D5W 1 GM in PREMIXED IN D5W 100 ML IV SCH (23:30)
[2016-12-29] VITALS (58 sets, daily range): BP systolic 71–147; BP diastolic 42–107; PULSE 78–140; TEMP 32.6–39.7; O2SAT 87–100
[2016-12-29] MEDS ORDERED: PIPERACILL/TAZOBAC IV 4.5 GM in DEXTROSE 5% 100ML 100 ML IV SCH ×2
[2016-12-29] MEDS ORDERED: PIPERACILL/TAZOBAC IV 3.375 GM in DEXTROSE 5% 100ML IV SCH ×2
[2016-12-29] MEDS: ACETAMINOPHEN IV 100 ML IV PRN ×3 (00:15→23:59)
[2016-12-29] MEDS: MAGNESIUM SULFATE 1GM / D5W 1 GM in PREMIXED IN D5W 100 ML IV SCH (00:19)
--- NOTE | 2016-12-29 01:54 | OPERATIVE REPORT ---
DATE OF OPERATION: 12/28/2016 PROCEDURE: Cysto and left stent placement. INDICATIONS: The patient presents with urosepsis with an obstructing ureteral stone. She was given pressors in the Emergency Room and antibiotics and taken directly to the operating room for left stent placement. DESCRIPTION OF PROCEDURE: The patient was taken to the cysto suite. She was given Venodyne stockings. She had been given antibiotics preoperatively. She was placed in the dorsal lithotomy position and prepped and draped in the usual sterile fashion. After this, the Herrera catheter was removed. The scope was placed in the bladder. She was given some sedation. A retrograde was performed which seemed to show some obstruction at the UPJ. I was able to pass a guidewire through the open-ended catheter beyond that area and then a 5-Chinese 26 cm stent was passed over the guidewire. It was clearly beyond that and there was a curl in the bladder and there appeared to be pus coming out of the stent at the end of the procedure. I attest to the content of the Intraoperative Record and any orders documented therein. Any exception s are noted below.
[2016-12-29] MEDS: ALBUMIN HUMAN 25% 12.5 GM/50 ML VIAL IV SCH ×6 (02:02→21:45)
[2016-12-29] MEDS: LEVALBUTEROL 1.25MG/0.5ML NEB INH SCH ×2 (02:05→08:33)
[2016-12-29] MEDS: IPRATROPIUM BROMIDE NEB SOLN 0.02% 2.5 ML VIAL INH SCH ×2 (02:05→08:33)
[2016-12-29 04:37] LABS: BUN/CREATININE RATIO 11.2 (10-20); CALCIUM 7.2 mg/dl (8.5-10.1); CREATININE 1.7 mg/dl (0.60-1.20); MAGNESIUM 2.5 mg/dl (1.8-2.4); POTASSIUM 2.2 mmol/L (3.5-5.1)
[2016-12-29 04:44] LABS: HEMATOCRIT 33.9 % (37-47); MEAN CELL VOLUME 85.2 fL (80-100); MEAN CORPUSCULAR HEMOGLOBIN 29.1 pg (25-34); MEAN CORPUSCULAR HGB CONC 34.2 g/dl (32-36); MEAN PLATELET VOLUME 10.6 fL (7.4-10.4); PLATELET COUNT 262 K/uL (130-400); RED BLOOD COUNT 3.98 M/uL (4.2-5.4); WHITE BLOOD COUNT 25.46 K/uL (4.8-10.8)
[2016-12-29 04:48] LABS: BASO % 0.1 %; BASO ABS # 0.02 K/uL (0-0.2); COMPLETE YES; ECHINOCYTES 1+; IG% 1.6 %; LYMPH % 2.4 %; LYMPH ABS # 0.62 K/uL (1.2-3.4); MONO % 6.2 %; NEUT % 89.7 %; VACUOLIZATION 2+
[2016-12-29] MEDS ORDERED: NURSING VERBAL MED ORDER ONE ×6 (05:00→23:30)
[2016-12-29] MEDS ORDERED: POTASSIUM CHLORIDE 20 MEQ TABCR PO SCH (05:00)
[2016-12-29] MEDS: NSS + 20MEQ KCL 1000ML 1,000 ML IV SCH ×2 (06:00→17:29)
[2016-12-29] MEDS: ALBUT/IPRATROP 3MG/0.5MG NEB 3 ML VIAL INH SCH (07:35)
[2016-12-29] MEDS: LEVOTHYROXINE SODIUM INJ 50 MCG in SYRINGE 0 ML IV SCH (08:55)
[2016-12-29] MEDS: POTASSIUM CHLR 10 MEQ / WTR 10 MEQ in PREMIXED WATER 100 ML IV SCH ×6 (09:04→15:44)
[2016-12-29] MEDS: CITALOPRAM 20 MG TAB PO SCH (09:09)
--- NOTE | 2016-12-29 09:12 | Progress Note ---
Subjective Date of Service: Dec 29, 2016. Subjective Pt evaluation today including: conversation w/ patient, chart review, lab review Voiding: burger catheter in place (patent, draining clear, yellow urine) 56 yo female s/p urgent left ureteral stent placement for left ureteral stone with sepsis. White count and Cr slightly improved this morning. Pt denies pain. Burger draining clear, yellow urine. BP at 108/77 on Levophed drip. Problem List Medical Problems: (1) Hydronephrosis with renal and ureteral calculous obstruction Status: Acute (2) UTI (urinary tract infection) Status: Acute Review of Systems Constitutional: No fever, No chills Respiratory: No shortness of breath Cardiac: No chest pain Abdomen: No pain, No nausea, No vomiting Female : No hematuria Heme: No abnormal bleeding/bruising Objective Vital Signs Date Time Temp Pulse Resp B/P (MAP) Pulse Ox O2 Delivery O2 Flow Rate FiO2 12/29/16 07:35 78 14 100 Room Air 12/29/16 06:30 36.2 79 108/77 (87) 98 12/29/16 06:15 36.2 79 103/72 (82) 98 12/29/16 06:00 36.3 82 97/64 (75) 97 12/29/16 05:45 36.4 82 107/69 (82) 98 12/29/16 05:30 36.4 81 105/78 (87) 98 Room Air 12/29/16 05:15 36.4 84 118/72 (87) 98 12/29/16 05:00 36.4 88 18 125/77 (93) 98 Room Air 12/29/16 04:45 36.5 84 115/76 (89) 98 12/29/16 04:30 36.6 85 105/73 (84) 98 Room Air 12/29/16 04:15 36.7 86 103/66 (78) 98 12/29/16 04:00 98 Room Air 12/29/16 04:00 36.8 88 16 91/64 (73) 98 Room Air 12/29/16 03:45 36.8 88 95/65 (75) 97 12/29/16 03:30 37.0 89 93/63 (73) 98 12/29/16 03:15 37.1 90 87/58 (68) 98 12/29/16 03:00 37.3 90 93/63 (73) 100 Nasal Cannula 2.0 12/29/16 02:45 37.5 91 96/61 (73) 100 Nasal Cannula 2.0 12/29/16 02:30 37.5 90 14 96/54 (68) 100 Nasal Cannula 12/29/16 02:15 37.7 95 20 107/75 (86) 99 Nasal Cannula 12/29/16 02:00 37.8 88 16 93/54 (67) 100 Nasal Cannula 2.0 12/29/16 01:45 38.0 87 76/61 (66) 99 12/29/16 01:30 38.2 87 83/54 (64) 98 12/29/16 01:16 38.4 94 97/65 (76) 97 12/29/16 01:01 38.6 85 78/49 (59) 98 12/29/16 00:46 38.9 87 71/44 (53) 97 12/29/16 00:31 39.1 93 76/48 (57) 96 12/29/16 00:17 39.4 106 90/55 (67) 97 12/29/16 00:16 39.4 104 73/54 (60) 96 12/29/16 00:01 39.7 106 80/49 (59) 96 12/29/16 00:00 98 Nasal Cannula 2.0 12/28/16 23:30 116 80/44 (56) 12/28/16 23:01 143 124/59 (80) 99 12/28/16 22:30 114 119/75 (90) 97 12/28/16 22:16 96 93/51 (65) 94 12/28/16 22:11 95 85/53 (64) 96 12/28/16 22:06 99 88/58 (68) 97 12/28/16 22:06 99 88/58 (68) 97 12/28/16 22:01 98 101/53 (69) 93 12/28/16 22:01 98 101/53 (69) 93 12/28/16 22:00 98 18 101/53 (71) 95 Nasal Cannula 2 12/28/16 22:00 98 97 12/28/16 21:56 99 103/61 (75) 95 12/28/16 21:51 99 101/62 (75) 94 9/19/17 21:50 37.0 101 18 101/62 (74) 93 Room Air 17 21:46 100 110/71 (84) 94 17 21:42 37.0 102 94/57 (69) 94 12/28/17 21:40 37.0 100 19 94/57 (71) 93 Room Air 17 20:41 92 21 99 17 20:36 84 19 111/70 100 17 20:31 84 17 131/78 100 19/17 20:28 83 18 97 Nasal Cannula 3.0 17 20:26 83 9 119/69 100 19/17 20:21 77 21 118/71 100 17 20:16 77 18 119/74 99 12/28/17 20:11 75 12 99 17 20:09 74/49 12/28/17 20:06 73 20 96 17 20:03 Room Air 12/28/16 20:01 75 21 96 1917 19:56 76 24 95 19/17 19:51 76 22 95 19/17 19:46 76 26 76/ 95 19/17 19:41 77 13 96 19/17 19:38 77/52 12/28/17 19:37 77 18 77/52 98 Room Air 17 19:36 78 18 96 19/17 19:31 76 21 94 19/17 19:26 74 20 94 19/17 19:24 72/43 19/17 19:23 72 18 72/43 98 Room Air 17 19:21 78 21 95 19/17 19:18 58/43 19/17 19:16 75 20 95 19/17 19:11 76 22 93 19/17 19:06 77 24 93 19/17 19:02 80/47 19/17 19:01 79 24 94 19/17 18:56 79 22 93 19/17 18:54 77/50 19/17 18:50 37.2 19/17 18:31 99/56 19/17 18:13 91 27 93 9/19/17 18:01 86/63 12/28/16 17:58 93 28 92 12/28/16 17:49 99 98/61 97 Room Air 12/28/16 17:48 97 Room Air 12/28/16 17:43 98 27 12/28/16 17:41 100 12/28/16 17:39 98/61 12/28/16 17:22 39.3 108 22 90/58 93 Room Air Physical Exam General Appearance: no apparent distress Eyes: normal inspection ENT: hearing grossly normal Neck: no JVD Respiratory/Chest: no respiratory distress, no accessory muscle use Cardiovascular: no JVD Extremities: normal inspection Neurologic/Psychiatric: alert, normal mood/affect Skin: normal color Laboratory Results Last 24 Hours Test 12/28/16 17:48 12/28/16 18:31 12/28/16 19:15 12/28/16 21:54 White Blood Count 28.38 K/uL Red Blood Count 5.01 M/uL Hemoglobin 14.8 g/dL Hematocrit 42.9 % Mean Corpuscular Volume 85.6 fL Mean Corpuscular Hemoglobin 29.5 pg Mean Corpuscular Hemoglobin Concent 34.5 g/dl Platelet Count 325 K/uL Mean Platelet Volume 10.5 fL Neutrophils (%) (Auto) 85.7 % Lymphocytes (%) (Auto) 3.8 % Monocytes (%) (Auto) 9.4 % Eosinophils (%) (Auto) 0.0 % Basophils (%) (Auto) 0.1 % Neutrophils # (Auto) 24.31 K/uL Lymphocytes # (Auto) 1.08 K/uL Monocytes # (Auto) 2.68 K/uL Eosinophils # (Auto) 0.01 K/uL Basophils # (Auto) 0.02 K/uL RDW Standard Deviation 42.5 fL RDW Coefficient of Variation 13.6 % Immature Granulocyte % (Auto) 1.0 % Immature Granulocyte # (Auto) 0.28 K/uL Red Blood Cell Morphology Unremarkable Prothrombin Time 11.2 SECONDS Prothromb Time International Ratio 1.0 Activated Partial Thromboplast Time 32.3 SECONDS Partial Thromboplastin Ratio 1.2 Sodium Level 127 mmol/L Potassium Level 2.7 mmol/L Chloride Level 90 mmol/L Carbon Dioxide Level 25 mmol/L Anion Gap 12.0 mmol/L Blood Urea Nitrogen 21 mg/dl Creatinine 2.10 mg/dl Est Creatinine Clear Calc Drug Dose 26.5 ml/min Estimated GFR () 30.2 Estimated GFR (Non- 26.0 BUN/Creatinine Ratio 9.9 Random Glucose 103 mg/dl Calcium Level 8.7 mg/dl Total Bilirubin 1.1 mg/dl Aspartate Amino Transf (AST/SGOT) 18 U/L Alanine Aminotransferase (ALT/SGPT) 27 U/L Alkaline Phosphatase 165 U/L Total Protein 7.6 gm/dl Albumin 3.1 gm/dl Globulin 4.5 gm/dl Albumin/Globulin Ratio 0.7 Procalcitonin 3.84 ng/ml Chemistry Specimen Hemolysis Urine Color DK YELLOW Urine Appearance CLOUDY Urine pH 5.0 Urine Specific [place] 1.019 Urine Protein 1+ Urine Glucose (UA) NEG Urine Ketones NEG Urine Occult Blood 2+ Urine Nitrite POS Urine Bilirubin 1+ Urine Urobilinogen NEG Urine Leukocyte Esterase MODERATE Urine WBC (Auto) >30 /hpf Urine RBC (Auto) 0-4 /hpf Urine Hyaline Casts (Auto) 0 /lpf Urine Epithelial Cells (Auto) 20-30 /lpf Urine Bacteria (Auto) 4+ Urine Pathogenic Casts See comments /lpf Bedside Lactic Acid Venous 0.82 mmol/L Lactic Acid Level 2.3 mmol/L Test 12/28/16 22:28 12/29/16 03:58 Sodium Level 135 mmol/L 136 mmol/L Potassium Level 3.2 mmol/L 2.2 mmol/L Chloride Level 102 mmol/L 105 mmol/L Carbon Dioxide Level 21 mmol/L 21 mmol/L Anion Gap 12.0 mmol/L 10.0 mmol/L Blood Urea Nitrogen 18 mg/dl 19 mg/dl Creatinine 1.90 mg/dl 1.70 mg/dl Est Creatinine Clear Calc Drug Dose 29.2 ml/min 32.7 ml/min Estimated GFR () 34.0 38.9 Estimated GFR (Non- 29.4 33.6 BUN/Creatinine Ratio 9.7 11.2 Random Glucose 124 mg/dl 154 mg/dl Calcium Level 7.2 mg/dl 7.2 mg/dl Magnesium Level 1.7 mg/dl 2.5 mg/dl Total Bilirubin 1.0 mg/dl 1.5 mg/dl Direct Bilirubin 0.5 mg/dl Aspartate Amino Transf (AST/SGOT) 19 U/L 25 U/L Alanine Aminotransferase (ALT/SGPT) 22 U/L 21 U/L Alkaline Phosphatase 113 U/L 100 U/L Total Protein 5.9 gm/dl 5.9 gm/dl Albumin 2.6 gm/dl 3.0 gm/dl White Blood Count 25.46 K/uL Red Blood Count 3.98 M/uL Hemoglobin 11.6 g/dL Hematocrit 33.9 % Mean Corpuscular Volume 85.2 fL Mean Corpuscular Hemoglobin 29.1 pg Mean Corpuscular Hemoglobin Concent 34.2 g/dl Platelet Count 262 K/uL Mean Platelet Volume 10.6 fL Neutrophils (%) (Auto) 89.7 % Lymphocytes (%) (Auto) 2.4 % Monocytes (%) (Auto) 6.2 % Eosinophils (%) (Auto) 0.0 % Basophils (%) (Auto) 0.1 % Neutrophils # (Auto) 22.83 K/uL Lymphocytes # (Auto) 0.62 K/uL Monocytes # (Auto) 1.58 K/uL Eosinophils # (Auto) 0.01 K/uL Basophils # (Auto) 0.02 K/uL RDW Standard Deviation 43.3 fL RDW Coefficient of Variation 13.8 % Immature Granulocyte % (Auto) 1.6 % Immature Granulocyte # (Auto) 0.40 K/uL Toxic Vacuolation 2+ Echinocytes 1+ Globulin 2.9 gm/dl Albumin/Globulin Ratio 1.0 Assessment and Plan POD #1 s/p left ureteral stent placement for sepsis Continue IV abx pending culture sensitivities. ID has been consulted as well. The pt will need treated with a minimum of 2 weeks of abx. Will plan for definitive management of stone once infection has been adequately treated and the pt is clincally improved. Will continue to follow along with primary service at this time.
[2016-12-29] MEDS: LORAZEPAM 2 MG/ML 1 ML VIAL IV PRN ×3 (09:31→21:05)
--- NOTE | 2016-12-29 10:31 | Critical Care Consultation ---
Critical Care Consultation Date of Consultation: Dec 29, 2016. Attending Physician: Lance Saucedo M.D. Reason for Consultation: septic shock. History of Present Illness Dear Dr. Saucedo: Thank you for your kind referral of Mrs Vargas to [facility]. this is 56 yo female with a hx of Bipolar disorder, HTN, presented to the hospital with 5 days of polyuria, fatigue, nausia and vomiting, she was seen in the ED and returned back with fever, chills and noted to have hematuria. she lately developed diarrhea for the past two days. non bloody, and she did have one episode of vomiting , no hematemesis. she denies abdominal pain, no chest pain, epigastric pain, no leg swelling, no dizziness, no near syncopal feeling. in the ED, she was found to be hypotensive, fluid resuscitative, and given unasyn and levaquin and vanco. the pt underwent ct abdomen showing 5 mm obstructing kidney stone on the left with acute pyelo , noted also changes in the rectum, possibly related to the diarrhea. the pt was taken to the OR by urology and underwent left ureter stent placement. she needed levophed for a short period of time,. her lactate was 2.3 on admission. she was sedated with ketamine and fent. in the ICU, the pt was having chills occasionally, no fever reported in fact mild hypothermia. she did not have abdominal pain, no nausea, no symptoms other than the shivering occasionally. she was treated with broad spec ABx, continue on IVF, and was able to be taken off the levophed. the rest of ROS was unremarkable. Past Medical/Surgical History bipolar disorder, HTN, active smoker. Family History Heart disease Hypertension Kidney disease Kidney stones Seizures both parents with CKD and from it ( per family). Social History Smoking Status: Current Every Day Smoker Smokeless Tobacco Use: No Alcohol Use: none Drug Use: none Marital Status: Housing Status: lives with family Occupation Status: employed Allergies Coded Allergies: Iron Dextran (Unverified Allergy, Unknown, RASH, 12/28/16) Ketamine (Unverified Adverse Reaction, Severe, VERY HIGH BP AND SHAKY, ) RAPID HB. POSSIBLE RXN TO THE KETAMINE FROM SURGERY Home Medications Scheduled Citalopram (Citalopram Hydrobromide), 30 MG PO QAM Cyanocobalamin (Cyanocobalamin), 1 DOSE INJ [id number] Doxepin (Sinequan), 50 MG PO HS Hydrochlorothiazide (Hydrochlorothiazide), 25 MG PO DAILY Levothyroxine Sodium (Synthroid), 88 MCG PO QAM Lorazepam (Ativan), 1 MG PO HS Simvastatin (Zocor), 40 MG PO DAILY Topiramate (Topamax), 100 MG PO QPM Topiramate (Topamax), 50 MG PO QAM Current Inpatient Medications Current Inpatient Medications Medications (Trade) Dose Ordered Sig/Jimmy Route Start Time Stop Time Status Last Admin Dose Admin Ioversol (Optiray 320) 111 ml UD PRN IV 12/28/16 17:45 01/01/17 17:44 Acetaminophen (Tylenol Tab) 650 mg Q4H PRN PO 12/28/16 19:30 01/27/17 19:29 Al Hydrox/Mg Hydrox/Simethicone (Maalox Max Susp) 15 ml Q4H PRN PO 12/28/16 19:30 01/27/17 19:29 Magnesium Hydroxide (Milk Of Magnesia Susp) 30 ml Q12H PRN PO 12/28/16 19:30 01/27/17 19:29 Ondansetron HCl (Zofran Inj) 4 mg Q6H PRN IV 12/28/16 19:30 01/27/17 19:29 Polyethylene (Miralax Powder Packet) 17 gm DAILY PRN PO 12/28/16 19:30 01/27/17 19:29 Lorazepam (Ativan Inj) 0.5 mg Q4H PRN IV 12/28/16 19:30 01/27/17 19:29 12/28/16 22:45 0.5 MG Levothyroxine Sodium 50 mcg/ Syringe 2.5 ml @ 2 mls/min DAILY@09 IV 12/28/16 19:30 01/27/17 19:29 12/28/16 22:24 2 MLS/MIN Norepinephrine Bitartrate 8 mg/ Dextrose 508 ml @ 0 mls/hr Q0M PRN IV 12/28/16 19:45 01/27/17 19:44 12/28/16 20:08 25.5 MLS/HR Albuterol/ Ipratropium (Duoneb) 3 ml QIDR INH 12/28/16 20:00 01/27/17 19:59 12/28/16 20:26 3 ML Vancomycin HCl (Consult) 1 ea UD PRN N/A 12/28/16 20:45 01/27/17 20:44 Ipratropium [place] (Atrovent 0.02% 0.5MG/2.5ML Neb) 0.5 mg Q6R INH 12/29/16 03:00 01/28/17 02:59 Levalbuterol (Xopenex 1.25MG/ 0.5ML Neb) 1.25 mg Q6R INH 12/29/16 03:00 01/28/17 02:59 Ipratropium [place] (Atrovent 0.02% 0.5MG/2.5ML Neb) 0.5 mg Q2H PRN INH 12/28/16 21:45 01/27/17 21:44 Levalbuterol (Xopenex 1.25MG/ 0.5ML Neb) 1.25 mg Q2H PRN INH 12/28/16 21:45 01/27/17 21:44 Potassium Chloride/Sodium Chloride 1,000 ml @ 100 mls/hr Q10H IV 12/28/16 22:30 01/27/17 22:29 12/29/16 06:00 100 MLS/HR Acetaminophen 100 ml @ 400 mls/hr Q8H PRN IV 12/29/16 00:15 01/28/17 00:14 12/29/16 00:15 400 MLS/HR Albumin Human (Albumin 25%) 25 gm Q4H IV 12/29/16 02:00 12/30/16 01:59 12/29/16 05:44 25 GM Potassium Chloride (Klor-Con Tab) 20 meq QID PO 12/29/16 05:00 01/28/17 04:59 12/29/16 04:56 20 MEQ Vancomycin HCl 1000 mg/Sodium Chloride 270 ml @ 125 mls/hr Q24H IV 12/29/16 20:00 01/08/17 19:59 Potassium Chloride 10 meq/ Prmx 100 ml @ 100 mls/hr Q2H IV 12/29/16 08:15 01/28/17 08:14 UNV Heparin Sodium (Porcine) (Heparin Sq 5000 Unit/0.5ml) 5,000 unit Q8 SQ 12/29/16 14:00 01/28/17 13:59 UNV Review of Systems Constitutional: + fever, + chills, + sweats Eyes: No worsening of vision, No eye pain, No redness, No discharge, No diplopia, No problem reported ENT: No hearing loss, No unusual epistaxis, No nasal symptoms, No sore throat, No tinnitus, No dental problems, No trouble swallowing, No problem reported Respiratory: No cough, No sputum, No wheezing, No shortness of breath, No dyspnea on exertion, No dyspnea at rest, No hemoptysis, No problem reported Cardiovascular: No chest pain, No orthopnea, No PND, No edema, No claudication , No palpitations, No problem reported Abdomen: + nausea, + vomiting, No pain, No diarrhea, No constipation, No GI bleeding, No problem reported Musculoskeletal: No joint pain, No muscle pain, No swelling, No calf pain, No problem reported Genitourinary - Female: + urinary frequency, + urinary urgency, + hematuria, No dysuria, No urinary incontinence, No urinary retention, No dysmenorrhea, No menorrhagia, No metrorrhagia, No rash, No vaginal bleeding, No vaginal discharge , No vaginal itching, No vulvodynia, No , No problem reported Neurologic: No memory loss, No paralysis, No weakness, No numbness/tingling, No vertigo, No balance problems, No problem reported Psychiatric: No depression symptoms, No anhedonism, No anxiety, No insomnia, No substance abuse, No problem reported Endocrine: + fatigue, No excessive thirst, No excessive urination, No problem reported Hematologic / Lymphatic: No abnormal bleeding/bruising, No clotting problems, No swollen lymph nodes, No night sweats, No problem reported Integumentary: No rash, No itch, No new/changing skin lesions, No color change , No bleeding, No problem reported Allergic / Immunologic: No environmental allergies, No seasonal allergies, No pet sensitivities, No food allergies, No hives, No frequent infections, No poor healing, No prolonged convalescence, No problem reported Physical Exam Date Time Temp Pulse Resp B/P (MAP) Pulse Ox O2 Delivery O2 Flow Rate FiO2 12/29/16 06:30 36.2 79 108/77 (87) 98 12/29/16 06:15 36.2 79 103/72 (82) 98 12/29/16 06:00 36.3 82 97/64 (75) 97 12/29/16 05:45 36.4 82 107/69 (82) 98 12/29/16 05:30 36.4 81 105/78 (87) 98 Room Air 12/29/16 05:15 36.4 84 118/72 (87) 98 12/29/16 05:00 36.4 88 18 125/77 (93) 98 Room Air 12/29/16 04:45 36.5 84 115/76 (89) 98 12/29/16 04:30 36.6 85 105/73 (84) 98 Room Air 12/29/16 04:15 36.7 86 103/66 (78) 98 12/29/16 04:00 98 Room Air 12/29/16 04:00 36.8 88 16 91/64 (73) 98 Room Air 12/29/16 03:45 36.8 88 95/65 (75) 97 12/29/16 03:30 37.0 89 93/63 (73) 98 12/29/16 03:15 37.1 90 87/58 (68) 98 12/29/16 03:00 37.3 90 93/63 (73) 100 Nasal Cannula 2.0 12/29/16 02:45 37.5 91 96/61 (73) 100 Nasal Cannula 2.0 12/29/16 02:30 37.5 90 14 96/54 (68) 100 Nasal Cannula 12/29/16 02:15 37.7 95 20 107/75 (86) 99 Nasal Cannula 12/29/16 02:00 37.8 88 16 93/54 (67) 100 Nasal Cannula 2.0 12/29/16 01:45 38.0 87 76/61 (66) 99 12/29/16 01:30 38.2 87 83/54 (64) 98 12/29/16 01:16 38.4 94 97/65 (76) 97 12/29/16 01:01 38.6 85 78/49 (59) 98 12/29/16 00:46 38.9 87 71/44 (53) 97 12/29/16 00:31 39.1 93 76/48 (57) 96 12/29/16 00:17 39.4 106 90/55 (67) 97 12/29/16 00:16 39.4 104 73/54 (60) 96 12/29/16 00:01 39.7 106 80/49 (59) 96 12/29/16 00:00 98 Nasal Cannula 2.0 12/28/16 23:30 116 80/44 (56) 12/28/16 23:01 143 124/59 (80) 99 12/28/16 22:30 114 119/75 (90) 97 12/28/16 22:16 96 93/51 (65) 94 12/28/16 22:11 95 85/53 (64) 96 12/28/16 22:06 99 88/58 (68) 97 12/28/16 22:06 99 88/58 (68) 97 12/28/16 22:01 98 101/53 (69) 93 12/28/16 22:01 98 101/53 (69) 93 12/28/16 22:00 98 18 101/53 (71) 95 Nasal Cannula 2 12/28/16 22:00 98 97 12/28/16 21:56 99 103/61 (75) 95 12/28/16 21:51 99 101/62 (75) 94 12/28/16 21:50 37.0 101 18 101/62 (74) 93 Room Air 12/28/16 21:46 100 110/71 (84) 94 12/28/16 21:42 37.0 102 94/57 (69) 94 12/28/16 21:40 37.0 100 19 94/57 (71) 93 Room Air 12/28/16 20:41 92 21 99 12/28/16 20:36 84 19 111/70 100 12/28/16 20:31 84 17 131/78 100 12/28/16 20:28 83 18 97 Nasal Cannula 3.0 12/28/16 20:26 83 9 119/69 100 12/28/16 20:21 77 21 118/71 100 12/28/16 20:16 77 18 119/74 99 12/28/16 20:11 75 12 99 12/28/16 20:09 74/49 12/28/16 20:06 73 20 96 12/28/16 20:03 Room Air 12/28/16 20:01 75 21 96 9/19/17 19:56 76 24 95 12/28/16 19:51 76 22 95 12/28/16 19:46 76 26 76/ 95 12/28/16 19:41 77 13 96 12/28/16 19:38 77/52 12/28/16 19:37 77 18 77/52 98 Room Air 12/28/16 19:36 78 18 96 12/28/16 19:31 76 21 94 12/28/16 19:26 74 20 94 12/28/16 19:24 72/43 12/28/16 19:23 72 18 72/43 98 Room Air 12/28/16 19:21 78 21 95 12/28/16 19:18 58/43 12/28/16 19:16 75 20 95 12/28/16 19:11 76 22 93 12/28/16 19:06 77 24 93 12/28/16 19:02 80/47 12/28/16 19:01 79 24 94 12/28/16 18:56 79 22 93 12/28/16 18:54 77/50 12/28/16 18:50 37.2 12/28/16 18:31 99/56 12/28/16 18:13 91 27 93 12/28/16 18:01 86/63 12/28/16 17:58 93 28 92 12/28/16 17:49 99 98/61 97 Room Air 12/28/16 17:48 97 Room Air 12/28/16 17:43 98 27 12/28/16 17:41 100 12/28/16 17:39 98/61 12/28/16 17:22 39.3 108 22 90/58 93 Room Air General Appearance: WD/WN, no apparent distress Head: normocephalic Eyes: PERRLA, no discharge ENT: normal mouth exam, normal throat exam Neck: normal range of motion, no tenderness Respiratory: breath sounds normal, clear to auscultation, clear to percussion Cardiovasular: regular rate/rhythm, normal S1S2, no M/G/R Abdomen: other Upper Extremities: no edema Lower Extremities: no edema, no deformity Neuro: alert, oriented x 3, normal motor exam, normal sensation Psychiatric: normal affect Laboratory Results Last 24 Hours Test 12/28/16 17:48 12/28/16 18:31 12/28/16 19:15 12/28/16 21:54 White Blood Count 28.38 K/uL Red Blood Count 5.01 M/uL Hemoglobin 14.8 g/dL Hematocrit 42.9 % Mean Corpuscular Volume 85.6 fL Mean Corpuscular Hemoglobin 29.5 pg Mean Corpuscular Hemoglobin Concent 34.5 g/dl Platelet Count 325 K/uL Mean Platelet Volume 10.5 fL Neutrophils (%) (Auto) 85.7 % Lymphocytes (%) (Auto) 3.8 % Monocytes (%) (Auto) 9.4 % Eosinophils (%) (Auto) 0.0 % Basophils (%) (Auto) 0.1 % Neutrophils # (Auto) 24.31 K/uL Lymphocytes # (Auto) 1.08 K/uL Monocytes # (Auto) 2.68 K/uL Eosinophils # (Auto) 0.01 K/uL Basophils # (Auto) 0.02 K/uL RDW Standard Deviation 42.5 fL RDW Coefficient of Variation 13.6 % Immature Granulocyte % (Auto) 1.0 % Immature Granulocyte # (Auto) 0.28 K/uL Red Blood Cell Morphology Unremarkable Prothrombin Time 11.2 SECONDS Prothromb Time International Ratio 1.0 Activated Partial Thromboplast Time 32.3 SECONDS Partial Thromboplastin Ratio 1.2 Sodium Level 127 mmol/L Potassium Level 2.7 mmol/L Chloride Level 90 mmol/L Carbon Dioxide Level 25 mmol/L Anion Gap 12.0 mmol/L Blood Urea Nitrogen 21 mg/dl Creatinine 2.10 mg/dl Est Creatinine Clear Calc Drug Dose 26.5 ml/min Estimated GFR () 30.2 Estimated GFR (Non- 26.0 BUN/Creatinine Ratio 9.9 Random Glucose 103 mg/dl Calcium Level 8.7 mg/dl Total Bilirubin 1.1 mg/dl Aspartate Amino Transf (AST/SGOT) 18 U/L Alanine Aminotransferase (ALT/SGPT) 27 U/L Alkaline Phosphatase 165 U/L Total Protein 7.6 gm/dl Albumin 3.1 gm/dl Globulin 4.5 gm/dl Albumin/Globulin Ratio 0.7 Procalcitonin 3.84 ng/ml Chemistry Specimen Hemolysis Urine Color DK YELLOW Urine Appearance CLOUDY Urine pH 5.0 Urine Specific [place] 1.019 Urine Protein 1+ Urine Glucose (UA) NEG Urine Ketones NEG Urine Occult Blood 2+ Urine Nitrite POS Urine Bilirubin 1+ Urine Urobilinogen NEG Urine Leukocyte Esterase MODERATE Urine WBC (Auto) >30 /hpf Urine RBC (Auto) 0-4 /hpf Urine Hyaline Casts (Auto) 0 /lpf Urine Epithelial Cells (Auto) 20-30 /lpf Urine Bacteria (Auto) 4+ Urine Pathogenic Casts See comments /lpf Bedside Lactic Acid Venous 0.82 mmol/L Lactic Acid Level 2.3 mmol/L Test 12/28/16 22:28 12/29/16 03:58 Sodium Level 135 mmol/L 136 mmol/L Potassium Level 3.2 mmol/L 2.2 mmol/L Chloride Level 102 mmol/L 105 mmol/L Carbon Dioxide Level 21 mmol/L 21 mmol/L Anion Gap 12.0 mmol/L 10.0 mmol/L Blood Urea Nitrogen 18 mg/dl 19 mg/dl Creatinine 1.90 mg/dl 1.70 mg/dl Est Creatinine Clear Calc Drug Dose 29.2 ml/min 32.7 ml/min Estimated GFR () 34.0 38.9 Estimated GFR (Non- 29.4 33.6 BUN/Creatinine Ratio 9.7 11.2 Random Glucose 124 mg/dl 154 mg/dl Calcium Level 7.2 mg/dl 7.2 mg/dl Magnesium Level 1.7 mg/dl 2.5 mg/dl Total Bilirubin 1.0 mg/dl 1.5 mg/dl Direct Bilirubin 0.5 mg/dl Aspartate Amino Transf (AST/SGOT) 19 U/L 25 U/L Alanine Aminotransferase (ALT/SGPT) 22 U/L 21 U/L Alkaline Phosphatase 113 U/L 100 U/L Total Protein 5.9 gm/dl 5.9 gm/dl Albumin 2.6 gm/dl 3.0 gm/dl White Blood Count 25.46 K/uL Red Blood Count 3.98 M/uL Hemoglobin 11.6 g/dL Hematocrit 33.9 % Mean Corpuscular Volume 85.2 fL Mean Corpuscular Hemoglobin 29.1 pg Mean Corpuscular Hemoglobin Concent 34.2 g/dl Platelet Count 262 K/uL Mean Platelet Volume 10.6 fL Neutrophils (%) (Auto) 89.7 % Lymphocytes (%) (Auto) 2.4 % Monocytes (%) (Auto) 6.2 % Eosinophils (%) (Auto) 0.0 % Basophils (%) (Auto) 0.1 % Neutrophils # (Auto) 22.83 K/uL Lymphocytes # (Auto) 0.62 K/uL Monocytes # (Auto) 1.58 K/uL Eosinophils # (Auto) 0.01 K/uL Basophils # (Auto) 0.02 K/uL RDW Standard Deviation 43.3 fL RDW Coefficient of Variation 13.8 % Immature Granulocyte % (Auto) 1.6 % Immature Granulocyte # (Auto) 0.40 K/uL Toxic Vacuolation 2+ Echinocytes 1+ Globulin 2.9 gm/dl Albumin/Globulin Ratio 1.[address] abddomen is reviewed personally showing left renal stone with obstruction and left renal enlargement with fat stranding and findings consistent with acute pyelo. also thickened bowel in the rectosigmoid area. no ascites. lower part of the lungs are clear no pleural effusion. Assessment & Plan 1- septic shock, resolving. 2- gram negative bacteria with sepsis. 3- acute pyelonephritis. s/p left ureteral stent placement. 4- diarrhea with evidence of proctitis on the ct. etiology could represent c diff vs diarrhea only. 5- Bipolar disorder. 6- Acute , possible acute on chronic kidney disease. 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 vasculitis, can be addressed later. Plan: 1- continue with NS and Kcl. 2- aggressive replacement of K as the pt has hypokalemia due to renal and GI loss. 3- agree with albumin infusion. 4- broad spec Abx, coverage for ESBL. 5- appreciate Urology and ID input. 6- PICC line placement for multiple IV drips. discussed with the son Kelvin over the phone and the sisters Rachel and Idania, all in agreement with the treatment and placement of the line. 7- stop HCTZ ( CKD). 8- stop Topamax. 9- continue Doxepin and Citalopram with renally adjusted dose. 10- start oral intake. 11- anticipate good prognosis,. 12- DVT prophylaxis. 13- full code. 14- ativan prn , low dose . 15- daily labs. BMP this afternoon. 16- c diff antigen. 17- eval for vasculitis once stable. 18- smoking cessation. 19- HCP is the son and two sisters, she would like her sisters to be the decision makers ( per pt). discussed with the staff on rounds in details. CCT 45 min.
--- NOTE | 2016-12-29 10:41 | Critical Care Progress Note ---
Critical Care Progress Note Date of Service Dec 29, 2016. Critical Care Progress Note Patient seen at bedside to answer questions regarding central line access. Sisters Dariela and Sandy present as well as 16 yo daughter. 1. Patient requires additional line access secondary to gram negative bacilli bacteremia. Risk vs benefits discussed. Best option if possible would be a PICC line as patient may require shelter abx tx. Patient agrees to PICC and if unsuccessful then a 3L central line 2. Medical POA: Patient is recently . Both parents are . Patient has a 34 yo son Kelvin Agarwal ([phone]) that lives in [place]. Minor daughter 16 yo. 18 yo son with Asperger's syndrome that is not capable to make decisions per patient. Patient requests that her two sisters make all decisions for her. Due to delirium from bacteremia, I called the son Kelvin at the above number. He is in agreement to let the sisters make decisions and supports their judgement. However, I did inform him that state law defines order for decision making and that until a formal POA was in place, we would need to talk with him but would get consent from the sisters in the event that he was not available. When patient improves from her acute illness, we will help the patient and family define healthcare POA formally. 3. Consent for central line: Johnson Warren agrees to PICC line and if unsuccessful, 3L CVC. Dr. Anglin spoke to him in my presence. Telephone consent is on the chart.
--- NOTE | 2016-12-29 10:44 | Medical Consult ---
Consultation Date of Consultation: Dec 29, 2016. Attending Physician: Lance Saucedo M.D. Reason for Consultation: Acute pyelonephritis and colitis History of Present Illness 56-year-old female with prior history of hypertension and bipolar disorder, otherwise in good health until approximately 1 week prior to admission when she noted onset of fever, chills, nausea and vomiting, with left-sided back pain and diarrhea. Eventually came to the emergency department where she was found to have evidence of left ureteral obstruction from stone with superimposed pyelonephritis. She underwent emergency stenting with finding of purulent material distal to the stent. She has has been given broad-spectrum antibiotics and is now on vancomycin and imipenem. Blood and urine cultures now reported positive for gram-negative bacilli. Patient has had evidence of sepsis and septic shock requiring pressor support, but now showing signs of improvement with decrease in temp and pressor requirement. Patient herself feeling better. Had been somewhat encephalopathic, this is now clearing. Past Medical/Surgical History Medical Problems: (1) Hydronephrosis with renal and ureteral calculous obstruction Status: Acute (2) UTI (urinary tract infection) Status: Acute Medical Problems: (1) Bipolar disorder (2) Kidney stone (3) Pernicious anemia (4) Sepsis Family History Heart disease Hypertension Kidney disease Kidney stones Seizures Social History Smoking Status: Current Every Day Smoker Smokeless Tobacco Use: No Alcohol Use: none Drug Use: none Marital Status: Housing Status: lives with family Occupation Status: employed Allergies Coded Allergies: Iron Dextran (Unverified Allergy, Unknown, RASH, 12/28/16) Ketamine (Unverified Adverse Reaction, Severe, VERY HIGH BP AND SHAKY, ) RAPID HB. POSSIBLE RXN TO THE KETAMINE FROM SURGERY Current Inpatient Medications Current Inpatient Medications Medications (Trade) Dose Ordered Sig/Jimmy Route Start Time Stop Time Status Last Admin Dose Admin Ioversol (Optiray 320) 111 ml UD PRN IV 12/28/16 17:45 01/01/17 17:44 Acetaminophen (Tylenol Tab) 650 mg Q4H PRN PO 12/28/16 19:30 01/27/17 19:29 12/29/16 09:55 650 MG Al Hydrox/Mg Hydrox/Simethicone (Maalox Max Susp) 15 ml Q4H PRN PO 12/28/16 19:30 01/27/17 19:29 Magnesium Hydroxide (Milk Of Magnesia Susp) 30 ml Q12H PRN PO 12/28/16 19:30 01/27/17 19:29 Ondansetron HCl (Zofran Inj) 4 mg Q6H PRN IV 12/28/16 19:30 01/27/17 19:29 Polyethylene (Miralax Powder Packet) 17 gm DAILY PRN PO 12/28/16 19:30 01/27/17 19:29 Lorazepam (Ativan Inj) 0.5 mg Q4H PRN IV 12/28/16 19:30 01/27/17 19:29 12/29/16 09:31 0.5 MG Levothyroxine Sodium 50 mcg/ Syringe 2.5 ml @ 2 mls/min DAILY@09 IV 12/28/16 19:30 01/27/17 19:29 12/29/16 08:55 2 MLS/MIN Norepinephrine Bitartrate 8 mg/ Dextrose 508 ml @ 0 mls/hr Q0M PRN IV 12/28/16 19:45 01/27/17 19:44 12/28/16 20:08 25.5 MLS/HR Vancomycin HCl (Consult) 1 ea UD PRN N/A 12/28/16 20:45 01/27/17 20:44 Potassium Chloride/Sodium Chloride 1,000 ml @ 100 mls/hr Q10H IV 12/28/16 22:30 01/27/17 22:29 12/29/16 06:00 100 MLS/HR Acetaminophen 100 ml @ 400 mls/hr Q8H PRN IV 12/29/16 00:15 01/28/17 00:14 12/29/16 00:15 400 MLS/HR Albumin Human (Albumin 25%) 25 gm Q4H IV 12/29/16 02:00 12/30/16 01:59 12/29/16 05:44 25 GM Vancomycin HCl 1000 mg/Sodium Chloride 270 ml @ 125 mls/hr Q24H IV 12/29/16 20:00 01/08/17 19:59 Potassium Chloride 10 meq/ Prmx 100 ml @ 100 mls/hr Q1H IV 12/29/16 09:00 12/29/16 14:59 12/29/16 09:04 100 MLS/HR Heparin Sodium (Porcine) (Heparin Sq 5000 Unit/0.5ml) 5,000 unit Q8 SQ 12/29/16 14:00 01/28/17 13:59 Citalopram Hydrobromide (celeXA TAB) 20 mg QAM PO 12/29/16 09:00 01/28/17 08:59 12/29/16 09:09 20 MG Doxepin HCl (Sinequan Cap) 25 mg HS PO 12/29/16 21:00 01/28/17 20:59 Imipenem/ Cilastatin Sodium 500 mg/Dextrose 110 ml @ 110 mls/hr Q8H IV 12/29/16 10:00 01/08/17 09:59 Review of Systems Constitutional: + fever, + chills, + weakness, + fatigue Eyes: No problem reported Respiratory: No problem reported Cardiovascular: No problem reported Abdomen: + pain, + nausea, + vomiting, + diarrhea Musculoskeletal: No problem reported Genitourinary - Female: + dysuria, + urinary frequency, + hematuria Neurologic: + weakness Psychiatric: No problem reported Endocrine: No problem reported Hematologic / Lymphatic: No problem reported Integumentary: No problem reported Allergic / Immunologic: No problem reported Physical Exam Date Time Temp Pulse Resp B/P (MAP) Pulse Ox O2 Delivery O2 Flow Rate FiO2 12/29/16 08:00 Room Air 12/29/16 07:35 78 14 100 Room Air 12/29/16 06:30 36.2 79 108/77 (87) 98 12/29/16 06:15 36.2 79 103/72 (82) 98 12/29/16 06:00 36.3 82 97/64 (75) 97 12/29/16 05:45 36.4 82 107/69 (82) 98 12/29/16 05:30 36.4 81 105/78 (87) 98 Room Air 12/29/16 05:15 36.4 84 118/72 (87) 98 12/29/16 05:00 36.4 88 18 125/77 (93) 98 Room Air 12/29/16 04:45 36.5 84 115/76 (89) 98 12/29/16 04:30 36.6 85 105/73 (84) 98 Room Air 12/29/16 04:15 36.7 86 103/66 (78) 98 12/29/16 04:00 98 Room Air 12/29/16 04:00 36.8 88 16 91/64 (73) 98 Room Air 12/29/16 03:45 36.8 88 95/65 (75) 97 12/29/16 03:30 37.0 89 93/63 (73) 98 12/29/16 03:15 37.1 90 87/58 (68) 98 12/29/16 03:00 37.3 90 93/63 (73) 100 Nasal Cannula 2.0 12/29/16 02:45 37.5 91 96/61 (73) 100 Nasal Cannula 2.0 12/29/16 02:30 37.5 90 14 96/54 (68) 100 Nasal Cannula 12/29/16 02:15 37.7 95 20 107/75 (86) 99 Nasal Cannula 12/29/16 02:00 37.8 88 16 93/54 (67) 100 Nasal Cannula 2.0 12/29/16 01:45 38.0 87 76/61 (66) 99 12/29/16 01:30 38.2 87 83/54 (64) 98 12/29/16 01:16 38.4 94 97/65 (76) 97 12/29/16 01:01 38.6 85 78/49 (59) 98 12/29/16 00:46 38.9 87 71/44 (53) 97 12/29/16 00:31 39.1 93 76/48 (57) 96 12/29/16 00:17 39.4 106 90/55 (67) 97 12/29/16 00:16 39.4 104 73/54 (60) 96 12/29/16 00:01 39.7 106 80/49 (59) 96 12/29/16 00:00 98 Nasal Cannula 2.0 12/28/16 23:30 116 80/44 (56) 12/28/16 23:01 143 124/59 (80) 99 12/28/16 22:30 114 119/75 (90) 97 12/28/16 22:16 96 93/51 (65) 94 12/28/16 22:11 95 85/53 (64) 96 12/28/16 22:06 99 88/58 (68) 97 12/28/16 22:06 99 88/58 (68) 97 12/28/16 22:01 98 101/53 (69) 93 12/28/16 22:01 98 101/53 (69) 93 12/28/16 22:00 98 18 101/53 (71) 95 Nasal Cannula 2 12/28/16 22:00 98 97 17 21:56 99 103/61 (75) 95 17 21:51 99 101/62 (75) 94 12/28/16 21:50 37.0 101 18 101/62 (74) 93 Room Air 12/28/16 21:46 100 110/71 (84) 94 12/28/16 21:42 37.0 102 94/57 (69) 94 12/28/16 21:40 37.0 100 19 94/57 (71) 93 Room Air 12/28/16 20:41 92 21 99 12/28/16 20:36 84 19 111/70 100 12/28/16 20:31 84 17 131/78 100 12/28/16 20:28 83 18 97 Nasal Cannula 3.0 12/28/16 20:26 83 9 119/69 100 17 20:21 77 21 118/71 100 17 20:16 77 18 119/74 99 12/28/16 20:11 75 12 99 12/28/16 20:09 74/49 12/28/16 20:06 73 20 96 12/28/16 20:03 Room Air 12/28/16 20:01 75 21 96 17 19:56 76 24 95 17 19:51 76 22 95 17 19:46 76 26 76/ 95 17 19:41 77 13 96 17 19:38 77/52 17 19:37 77 18 77/52 98 Room Air 12/28/16 19:36 78 18 96 17 19:31 76 21 94 17 19:26 74 20 94 12/28/17 19:24 72/43 12/28/17 19:23 72 18 72/43 98 Room Air 12/28/16 19:21 78 21 95 1917 19:18 58/43 17 19:16 75 20 95 17 19:11 76 22 93 9/19/17 19:06 77 24 93 12/28/16 19:02 80/47 12/28/16 19:01 79 24 94 12/28/16 18:56 79 22 93 12/28/16 18:54 77/50 12/28/16 18:50 37.2 12/28/16 18:31 99/56 12/28/16 18:13 91 27 93 12/28/16 18:01 86/63 12/28/16 17:58 93 28 92 12/28/16 17:49 99 98/61 97 Room Air 12/28/16 17:48 97 Room Air 12/28/16 17:43 98 27 12/28/16 17:41 100 12/28/16 17:39 98/61 12/28/16 17:22 39.3 108 22 90/58 93 Room Air General Appearance: WD/WN, no apparent distress Head: normocephalic, atraumatic Eyes: normal inspection, EOMI, sclerae normal ENT: normal ENT inspection, pharynx normal Neck: supple, no adenopathy, thyroid normal, trachea midline Respiratory/Chest: chest non-tender, lungs clear, normal breath sounds, no respiratory distress Cardiovascular: regular rate, rhythm, no gallop, no murmur Abdomen/GI: normal bowel sounds, non tender, soft, no organomegaly Genitourinary - Female: + pertinent finding (Herrera catheter in place) Back: normal inspection, + left CVA tenderness Extremities/Musculoskelatal: no calf tenderness, non-tender Neurologic/Psych: alert, oriented x 3 Skin: normal color, no rash Lymphatic: no adenopathy Laboratory Results Date/Time Source Procedure Growth Status 12/28/16 18:10 Blood Blood Culture - Preliminary Gram Negative Bacilli Resulted 12/28/16 17:48 Blood Blood Culture - Preliminary Gram Negative Bacilli Resulted 12/28/16 21:50 Nasal MRSA DNA Surveillance Screen - Final Specimen Negative for MRSA by DNA Probe Complete 12/29/16 09:00 Stool C.difficile Toxin B Gene (PCR) Pending Received 12/28/16 18:31 Urine,Catheterized Urine Culture - Preliminary Gram Negative Bacilli Resulted Last 24 Hours Test 12/28/16 17:48 12/28/16 18:31 12/28/16 19:15 12/28/16 21:54 White Blood Count 28.38 K/uL Red Blood Count 5.01 M/uL Hemoglobin 14.8 g/dL Hematocrit 42.9 % Mean Corpuscular Volume 85.6 fL Mean Corpuscular Hemoglobin 29.5 pg Mean Corpuscular Hemoglobin Concent 34.5 g/dl Platelet Count 325 K/uL Mean Platelet Volume 10.5 fL Neutrophils (%) (Auto) 85.7 % Lymphocytes (%) (Auto) 3.8 % Monocytes (%) (Auto) 9.4 % Eosinophils (%) (Auto) 0.0 % Basophils (%) (Auto) 0.1 % Neutrophils # (Auto) 24.31 K/uL Lymphocytes # (Auto) 1.08 K/uL Monocytes # (Auto) 2.68 K/uL Eosinophils # (Auto) 0.01 K/uL Basophils # (Auto) 0.02 K/uL RDW Standard Deviation 42.5 fL RDW Coefficient of Variation 13.6 % Immature Granulocyte % (Auto) 1.0 % Immature Granulocyte # (Auto) 0.28 K/uL Red Blood Cell Morphology Unremarkable Prothrombin Time 11.2 SECONDS Prothromb Time International Ratio 1.0 Activated Partial Thromboplast Time 32.3 SECONDS Partial Thromboplastin Ratio 1.2 Sodium Level 127 mmol/L Potassium Level 2.7 mmol/L Chloride Level 90 mmol/L Carbon Dioxide Level 25 mmol/L Anion Gap 12.0 mmol/L Blood Urea Nitrogen 21 mg/dl Creatinine 2.10 mg/dl Est Creatinine Clear Calc Drug Dose 26.5 ml/min Estimated GFR () 30.2 Estimated GFR (Non- 26.0 BUN/Creatinine Ratio 9.9 Random Glucose 103 mg/dl Calcium Level 8.7 mg/dl Total Bilirubin 1.1 mg/dl Aspartate Amino Transf (AST/SGOT) 18 U/L Alanine Aminotransferase (ALT/SGPT) 27 U/L Alkaline Phosphatase 165 U/L Total Protein 7.6 gm/dl Albumin 3.1 gm/dl Globulin 4.5 gm/dl Albumin/Globulin Ratio 0.7 Procalcitonin 3.84 ng/ml Chemistry Specimen Hemolysis Urine Color DK YELLOW Urine Appearance CLOUDY Urine pH 5.0 Urine Specific [place] 1.019 Urine Protein 1+ Urine Glucose (UA) NEG Urine Ketones NEG Urine Occult Blood 2+ Urine Nitrite POS Urine Bilirubin 1+ Urine Urobilinogen NEG Urine Leukocyte Esterase MODERATE Urine WBC (Auto) >30 /hpf Urine RBC (Auto) 0-4 /hpf Urine Hyaline Casts (Auto) 0 /lpf Urine Epithelial Cells (Auto) 20-30 /lpf Urine Bacteria (Auto) 4+ Urine Pathogenic Casts See comments /lpf Bedside Lactic Acid Venous 0.82 mmol/L Lactic Acid Level 2.3 mmol/L Test 12/28/16 22:28 12/29/16 03:58 12/29/16 09:52 Sodium Level 135 mmol/L 136 mmol/L Potassium Level 3.2 mmol/L 2.2 mmol/L Chloride Level 102 mmol/L 105 mmol/L Carbon Dioxide Level 21 mmol/L 21 mmol/L Anion Gap 12.0 mmol/L 10.0 mmol/L Blood Urea Nitrogen 18 mg/dl 19 mg/dl Creatinine 1.90 mg/dl 1.70 mg/dl Est Creatinine Clear Calc Drug Dose 29.2 ml/min 32.7 ml/min Estimated GFR () 34.0 38.9 Estimated GFR (Non- 29.4 33.6 BUN/Creatinine Ratio 9.7 11.2 Random Glucose 124 mg/dl 154 mg/dl Calcium Level 7.2 mg/dl 7.2 mg/dl Magnesium Level 1.7 mg/dl 2.5 mg/dl Total Bilirubin 1.0 mg/dl 1.5 mg/dl Direct Bilirubin 0.5 mg/dl Aspartate Amino Transf (AST/SGOT) 19 U/L 25 U/L Alanine Aminotransferase (ALT/SGPT) 22 U/L 21 U/L Alkaline Phosphatase 113 U/L 100 U/L Total Protein 5.9 gm/dl 5.9 gm/dl Albumin 2.6 gm/dl 3.0 gm/dl White Blood Count 25.46 K/uL Red Blood Count 3.98 M/uL Hemoglobin 11.6 g/dL Hematocrit 33.9 % Mean Corpuscular Volume 85.2 fL Mean Corpuscular Hemoglobin 29.1 pg Mean Corpuscular Hemoglobin Concent 34.2 g/dl Platelet Count 262 K/uL Mean Platelet Volume 10.6 fL Neutrophils (%) (Auto) 89.7 % Lymphocytes (%) (Auto) 2.4 % Monocytes (%) (Auto) 6.2 % Eosinophils (%) (Auto) 0.0 % Basophils (%) (Auto) 0.1 % Neutrophils # (Auto) 22.83 K/uL Lymphocytes # (Auto) 0.62 K/uL Monocytes # (Auto) 1.58 K/uL Eosinophils # (Auto) 0.01 K/uL Basophils # (Auto) 0.02 K/uL RDW Standard Deviation 43.3 fL RDW Coefficient of Variation 13.8 % Immature Granulocyte % (Auto) 1.6 % Immature Granulocyte # (Auto) 0.40 K/uL Toxic Vacuolation 2+ Echinocytes 1+ Globulin 2.9 gm/dl Albumin/Globulin Ratio 1.0 Patient Name: JOANNA VELÁSQUEZ Unit Number: [id number] Dictated: 12/28/161848 Transcribed: 12/28/161848 MS Printed Date/Time: [~ rep prt dt]/[~ rep prt tm] [~ rep ct labl] - [~ rep ct ivnm] [facility] [place] [address] Dictated: 12/28/161848 Transcribed: 12/28/161848 MS Printed Date/Time: [~ rep prt dt]/[~ rep prt tm] [~ rep ct labl] - [~ rep ct ivnm] [~ rep ct add3]] ABD/PELVIS NO IV OR ORAL CONT CT DOSE: 275.32 mGy.cm HISTORY: Fever fever, back pain, sepsis. Stone TECHNIQUE: Multiaxial CT images of the abdomen and pelvis were performed without contrast. A dose lowering technique was utilized adhering to the principles of ALARA. COMPARISON STUDY: None. FINDINGS: Lung bases are clear. Liver spleen and pancreas appear unremarkable. 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 These are considered stable. Right kidney is negative for calcification or hydronephrosis. Left kidney demonstrates moderate edematous change and hydronephrosis. There is a 5 mm calculus at the left ureteropelvic junction. Moderate edematous and infiltrative change left kidney suggest potential superimposed pyelonephritis. Bowel pattern suggests a mild reactive ileus. There are no obstructive characteristics. The appendix is normal. Bladder contains a Herrera catheter. No significant free fluid within the pelvic cul-de-sac. IMPRESSION: 1. 5 mm obstructing calculus proximal left ureter at the left ureteropelvic junction. 2. Edematous change of left kidney with infiltrative change of the left renal perinephric fat. 3. the possibility of superimposed pyelonephritis must be considered. The above report was generated using voice recognition software. It may contain grammatical, syntax or spelling errors. Electronically signed by: Malik Hensley M.D. 12/28/2016 6:53 PM Dictated Date/Time: 12/28/2016 6:49 PM The status of this report is Signed. Draft = Not yet reviewed or approved by Radiologist. Signed = Reviewed and approved by Radiologist. <AttendingPhy></AttendingPhy> <FamilyPhy>No Doctor, Assigned</FamilyPhy> < PrimaryPhy>No Doctor, Assigned</PrimaryPhy> <UnitNumber>[id number]</UnitNumber> <VisitNumber>[id number]</VisitNumber> <PatientName>JOANNA VELÁSQUEZ</ PatientName> <DateOfBirth>1960</DateOfBirth> <Location>[facility]</Location> < ServiceDate>12/28/16</ServiceDate> <MNE>ESINDI</MNE> <OrderingPhy>Nette Rodriguez M.D.</OrderingPhy> <OrderingPhyMNE>f rep ord dr brock</OrderingPhyMNE> < DictatingPhyMNE>f rep dict dr brock</DictatingPhyMNE> <CCListMNE>f rep ct delmy</ CCListMNE> <AdmittingPhyMNE>f pt admit dr brock</AdmittingPhyMNE> <AttendingPhyMNE >f pt attend dr brock</AttendingPhyMNE> <ConsultingPhyMNE>f pt consult dr brock</ConsultingPhyMNE> <FamilyPhyMNE>f pt fam dr brock</FamilyPhyMNE> <OtherPhyMNE>f pt other dr brock</OtherPhyMNE> < PrimaryPhyMNE>f pt prim care dr brock</PrimaryPhyMNE> <ReferringPhyMNE>f pt referring dr brock</ReferringPhyMNE> Assessment & Plan 56-year-old female with Gram-negative sepsis with septic shock with pyelonephritis and obstructive uropathy, worry about possibility of superimposed colitis. Patient be continued on imipenem pending final identification and sensitivities. Stool studies are pending. Discussed with Critical Care Service. Will follow.
[2016-12-29 11:20] LABS: BUN/CREATININE RATIO 9.9 (10-20); CALCIUM 8.5 mg/dl (8.5-10.1); CREATININE 1.8 mg/dl (0.60-1.20); MAGNESIUM 2.9 mg/dl (1.8-2.4); POTASSIUM 3.1 mmol/L (3.5-5.1)
[2016-12-29] MEDS: IMIPENEM/CILASTATIN IV 500 MG in D5W 100ML IV SCH ×2 (11:54→17:29)
--- NOTE | 2016-12-29 12:28 | Family Medicine Progress Note ---
Progress Note Date of Service Dec 29, 2016. Subjective Pt evaluation today including: conversation w/ patient, physical exam, chart review, lab review Pain: Mild left flank tenderness PO Intake: Good appetiet Voiding: no voiding problems Doing well at this time Feeling much better since having stent placed Denies any other complaints at this time Has appetite to eat food; was able to void this morning No nursing concerns Patient seen at the bedside with Dr. Anglin All Other Systems: Reviewed and Negative Medications Current Inpatient Medications Medications (Trade) Dose Ordered Sig/Jimmy Route Start Time Stop Time Status Last Admin Dose Admin Ioversol (Optiray 320) 111 ml UD PRN IV 12/28/16 17:45 01/01/17 17:44 Acetaminophen (Tylenol Tab) 650 mg Q4H PRN PO 12/28/16 19:30 01/27/17 19:29 12/29/16 09:55 650 MG Al Hydrox/Mg Hydrox/Simethicone (Maalox Max Susp) 15 ml Q4H PRN PO 12/28/16 19:30 01/27/17 19:29 Magnesium Hydroxide (Milk Of Magnesia Susp) 30 ml Q12H PRN PO 12/28/16 19:30 01/27/17 19:29 Ondansetron HCl (Zofran Inj) 4 mg Q6H PRN IV 12/28/16 19:30 01/27/17 19:29 Polyethylene (Miralax Powder Packet) 17 gm DAILY PRN PO 12/28/16 19:30 01/27/17 19:29 Lorazepam (Ativan Inj) 0.5 mg Q4H PRN IV 12/28/16 19:30 01/27/17 19:29 12/29/16 09:31 0.5 MG Levothyroxine Sodium 50 mcg/ Syringe 2.5 ml @ 2 mls/min DAILY@09 IV 12/28/16 19:30 01/27/17 19:29 12/29/16 08:55 2 MLS/MIN Norepinephrine Bitartrate 8 mg/ Dextrose 508 ml @ 0 mls/hr Q0M PRN IV 12/28/16 19:45 01/27/17 19:44 12/28/16 20:08 25.5 MLS/HR Vancomycin HCl (Consult) 1 ea UD PRN N/A 12/28/16 20:45 01/27/17 20:44 Potassium Chloride/Sodium Chloride 1,000 ml @ 100 mls/hr Q10H IV 12/28/16 22:30 01/27/17 22:29 12/29/16 06:00 100 MLS/HR Acetaminophen 100 ml @ 400 mls/hr Q8H PRN IV 12/29/16 00:15 01/28/17 00:14 12/29/16 00:15 400 MLS/HR Albumin Human (Albumin 25%) 25 gm Q4H IV 12/29/16 02:00 12/30/16 01:59 12/29/16 11:54 25 GM Vancomycin HCl 1000 mg/Sodium Chloride 270 ml @ 125 mls/hr Q24H IV 12/29/16 20:00 01/08/17 19:59 Potassium Chloride 10 meq/ Prmx 100 ml @ 100 mls/hr Q1H IV 12/29/16 09:00 12/29/16 14:59 12/29/16 12:13 100 MLS/HR Heparin Sodium (Porcine) (Heparin Sq 5000 Unit/0.5ml) 5,000 unit Q8 SQ 12/29/16 14:00 01/28/17 13:59 Citalopram Hydrobromide (celeXA TAB) 20 mg QAM PO 12/29/16 09:00 01/28/17 08:59 12/29/16 09:09 20 MG Doxepin HCl (Sinequan Cap) 25 mg HS PO 12/29/16 21:00 01/28/17 20:59 Imipenem/ Cilastatin Sodium 500 mg/Dextrose 110 ml @ 110 mls/hr Q8H IV 12/29/16 10:00 01/08/17 09:59 12/29/16 11:54 110 MLS/HR Objective Vital Signs Date Time Temp Pulse Resp B/P (MAP) Pulse Ox O2 Delivery O2 Flow Rate FiO2 12/29/16 08:00 Room Air 12/29/16 07:35 78 14 100 Room Air 12/29/16 06:30 36.2 79 108/77 (87) 98 12/29/16 06:15 36.2 79 103/72 (82) 98 12/29/16 06:00 36.3 82 97/64 (75) 97 12/29/16 05:45 36.4 82 107/69 (82) 98 12/29/16 05:30 36.4 81 105/78 (87) 98 Room Air 12/29/16 05:15 36.4 84 118/72 (87) 98 12/29/16 05:00 36.4 88 18 125/77 (93) 98 Room Air 12/29/16 04:45 36.5 84 115/76 (89) 98 12/29/16 04:30 36.6 85 105/73 (84) 98 Room Air 12/29/16 04:15 36.7 86 103/66 (78) 98 12/29/16 04:00 98 Room Air 12/29/16 04:00 36.8 88 16 91/64 (73) 98 Room Air 12/29/16 03:45 36.8 88 95/65 (75) 97 12/29/16 03:30 37.0 89 93/63 (73) 98 12/29/16 03:15 37.1 90 87/58 (68) 98 12/29/16 03:00 37.3 90 93/63 (73) 100 Nasal Cannula 2.0 12/29/16 02:45 37.5 91 96/61 (73) 100 Nasal Cannula 2.0 12/29/16 02:30 37.5 90 14 96/54 (68) 100 Nasal Cannula 12/29/16 02:15 37.7 95 20 107/75 (86) 99 Nasal Cannula 12/29/16 02:00 37.8 88 16 93/54 (67) 100 Nasal Cannula 2.0 12/29/16 01:45 38.0 87 76/61 (66) 99 12/29/16 01:30 38.2 87 83/54 (64) 98 12/29/16 01:16 38.4 94 97/65 (76) 97 12/29/16 01:01 38.6 85 78/49 (59) 98 12/29/16 00:46 38.9 87 71/44 (53) 97 12/29/16 00:31 39.1 93 76/48 (57) 96 12/29/16 00:17 39.4 106 90/55 (67) 97 12/29/16 00:16 39.4 104 73/54 (60) 96 12/29/16 00:01 39.7 106 80/49 (59) 96 12/29/16 00:00 98 Nasal Cannula 2.0 12/28/16 23:30 116 80/44 (56) 12/28/16 23:01 143 124/59 (80) 99 12/28/16 22:30 114 119/75 (90) 97 12/28/16 22:16 96 93/51 (65) 94 12/28/16 22:11 95 85/53 (64) 96 12/28/16 22:06 99 88/58 (68) 97 12/28/16 22:06 99 88/58 (68) 97 12/28/16 22:01 98 101/53 (69) 93 12/28/16 22:01 98 101/53 (69) 93 12/28/16 22:00 98 18 101/53 (71) 95 Nasal Cannula 2 12/28/16 22:00 98 97 12/28/16 21:56 99 103/61 (75) 95 12/28/16 21:51 99 101/62 (75) 94 12/28/16 21:50 37.0 101 18 101/62 (74) 93 Room Air 12/28/16 21:46 100 110/71 (84) 94 12/28/16 21:42 37.0 102 94/57 (69) 94 12/28/16 21:40 37.0 100 19 94/57 (71) 93 Room Air 12/28/16 20:41 92 21 99 12/28/16 20:36 84 19 111/70 100 12/28/16 20:31 84 17 131/78 100 12/28/16 20:28 83 18 97 Nasal Cannula 3.0 12/28/16 20:26 83 9 119/69 100 12/28/16 20:21 77 21 118/71 100 12/28/16 20:16 77 18 119/74 99 12/28/16 20:11 75 12 99 12/28/16 20:09 74/49 12/28/16 20:06 73 20 96 12/28/16 20:03 Room Air 12/28/16 20:01 75 21 96 12/28/16 19:56 76 24 95 12/28/16 19:51 76 22 95 12/28/16 19:46 76 26 76/ 95 12/28/16 19:41 77 13 96 12/28/16 19:38 77/52 12/28/16 19:37 77 18 77/52 98 Room Air 12/28/16 19:36 78 18 96 12/28/16 19:31 76 21 94 12/28/16 19:26 74 20 94 12/28/16 19:24 72/43 12/28/16 19:23 72 18 72/43 98 Room Air 12/28/16 19:21 78 21 95 12/28/16 19:18 58/43 12/28/16 19:16 75 20 95 12/28/16 19:11 76 22 93 12/28/16 19:06 77 24 93 12/28/16 19:02 80/47 12/28/16 19:01 79 24 94 12/28/16 18:56 79 22 93 12/28/16 18:54 77/50 12/28/16 18:50 37.2 12/28/16 18:31 99/56 12/28/16 18:13 91 27 93 12/28/16 18:01 86/63 12/28/16 17:58 93 28 92 12/28/16 17:49 99 98/61 97 Room Air 12/28/16 17:48 97 Room Air 12/28/16 17:43 98 27 12/28/16 17:41 100 12/28/16 17:39 98/61 12/28/16 17:22 39.3 108 22 90/58 93 Room Air Physical Exam General Appearance: WD/WN, no apparent distress Eyes: normal inspection, EOMI ENT: hearing grossly normal, pharynx normal Neck: supple, no adenopathy, no JVD Respiratory/Chest: lungs clear, no respiratory distress Cardiovascular: regular rate, rhythm, no gallop, no murmur Abdomen: normal bowel sounds, soft, + tenderness (mild tenderness to left flank ; no guarding or rigidity) Extremities: non-tender, no pedal edema Neurologic/Psychiatric: alert, normal mood/affect, oriented x 3 Skin: normal color, warm/dry, no rash Lymphatic: no adenopathy Laboratory Results Last 24 Hours Test 12/28/16 17:48 12/28/16 18:31 12/28/16 19:15 12/28/16 21:54 White Blood Count 28.38 K/uL Red Blood Count 5.01 M/uL Hemoglobin 14.8 g/dL Hematocrit 42.9 % Mean Corpuscular Volume 85.6 fL Mean Corpuscular Hemoglobin 29.5 pg Mean Corpuscular Hemoglobin Concent 34.5 g/dl Platelet Count 325 K/uL Mean Platelet Volume 10.5 fL Neutrophils (%) (Auto) 85.7 % Lymphocytes (%) (Auto) 3.8 % Monocytes (%) (Auto) 9.4 % Eosinophils (%) (Auto) 0.0 % Basophils (%) (Auto) 0.1 % Neutrophils # (Auto) 24.31 K/uL Lymphocytes # (Auto) 1.08 K/uL Monocytes # (Auto) 2.68 K/uL Eosinophils # (Auto) 0.01 K/uL Basophils # (Auto) 0.02 K/uL RDW Standard Deviation 42.5 fL RDW Coefficient of Variation 13.6 % Immature Granulocyte % (Auto) 1.0 % Immature Granulocyte # (Auto) 0.28 K/uL Red Blood Cell Morphology Unremarkable Prothrombin Time 11.2 SECONDS Prothromb Time International Ratio 1.0 Activated Partial Thromboplast Time 32.3 SECONDS Partial Thromboplastin Ratio 1.2 Sodium Level 127 mmol/L Potassium Level 2.7 mmol/L Chloride Level 90 mmol/L Carbon Dioxide Level 25 mmol/L Anion Gap 12.0 mmol/L Blood Urea Nitrogen 21 mg/dl Creatinine 2.10 mg/dl Est Creatinine Clear Calc Drug Dose 26.5 ml/min Estimated GFR () 30.2 Estimated GFR (Non- 26.0 BUN/Creatinine Ratio 9.9 Random Glucose 103 mg/dl Calcium Level 8.7 mg/dl Total Bilirubin 1.1 mg/dl Aspartate Amino Transf (AST/SGOT) 18 U/L Alanine Aminotransferase (ALT/SGPT) 27 U/L Alkaline Phosphatase 165 U/L Total Protein 7.6 gm/dl Albumin 3.1 gm/dl Globulin 4.5 gm/dl Albumin/Globulin Ratio 0.7 Procalcitonin 3.84 ng/ml Chemistry Specimen Hemolysis Urine Color DK YELLOW Urine Appearance CLOUDY Urine pH 5.0 Urine Specific [place] 1.019 Urine Protein 1+ Urine Glucose (UA) NEG Urine Ketones NEG Urine Occult Blood 2+ Urine Nitrite POS Urine Bilirubin 1+ Urine Urobilinogen NEG Urine Leukocyte Esterase MODERATE Urine WBC (Auto) >30 /hpf Urine RBC (Auto) 0-4 /hpf Urine Hyaline Casts (Auto) 0 /lpf Urine Epithelial Cells (Auto) 20-30 /lpf Urine Bacteria (Auto) 4+ Urine Pathogenic Casts See comments /lpf Bedside Lactic Acid Venous 0.82 mmol/L Lactic Acid Level 2.3 mmol/L Test 12/28/16 22:28 12/29/16 03:58 12/29/16 09:52 Sodium Level 135 mmol/L 136 mmol/L 138 mmol/L Potassium Level 3.2 mmol/L 2.2 mmol/L 3.1 mmol/L Chloride Level 102 mmol/L 105 mmol/L 107 mmol/L Carbon Dioxide Level 21 mmol/L 21 mmol/L 22 mmol/L Anion Gap 12.0 mmol/L 10.0 mmol/L 9.0 mmol/L Blood Urea Nitrogen 18 mg/dl 19 mg/dl 18 mg/dl Creatinine 1.90 mg/dl 1.70 mg/dl 1.80 mg/dl Est Creatinine Clear Calc Drug Dose 29.2 ml/min 32.7 ml/min 30.9 ml/min Estimated GFR () 34.0 38.9 36.3 Estimated GFR (Non- 29.4 33.6 31.4 BUN/Creatinine Ratio 9.7 11.2 9.9 Random Glucose 124 mg/dl 154 mg/dl 87 mg/dl Calcium Level 7.2 mg/dl 7.2 mg/dl 8.5 mg/dl Magnesium Level 1.7 mg/dl 2.5 mg/dl 2.9 mg/dl Total Bilirubin 1.0 mg/dl 1.5 mg/dl 1.3 mg/dl Direct Bilirubin 0.5 mg/dl Aspartate Amino Transf (AST/SGOT) 19 U/L 25 U/L 34 U/L Alanine Aminotransferase (ALT/SGPT) 22 U/L 21 U/L 23 U/L Alkaline Phosphatase 113 U/L 100 U/L 111 U/L Total Protein 5.9 gm/dl 5.9 gm/dl 7.2 gm/dl Albumin 2.6 gm/dl 3.0 gm/dl 3.7 gm/dl White Blood Count 25.46 K/uL Red Blood Count 3.98 M/uL Hemoglobin 11.6 g/dL Hematocrit 33.9 % Mean Corpuscular Volume 85.2 fL Mean Corpuscular Hemoglobin 29.1 pg Mean Corpuscular Hemoglobin Concent 34.2 g/dl Platelet Count 262 K/uL Mean Platelet Volume 10.6 fL Neutrophils (%) (Auto) 89.7 % Lymphocytes (%) (Auto) 2.4 % Monocytes (%) (Auto) 6.2 % Eosinophils (%) (Auto) 0.0 % Basophils (%) (Auto) 0.1 % Neutrophils # (Auto) 22.83 K/uL Lymphocytes # (Auto) 0.62 K/uL Monocytes # (Auto) 1.58 K/uL Eosinophils # (Auto) 0.01 K/uL Basophils # (Auto) 0.02 K/uL RDW Standard Deviation 43.3 fL RDW Coefficient of Variation 13.8 % Immature Granulocyte % (Auto) 1.6 % Immature Granulocyte # (Auto) 0.40 K/uL Toxic Vacuolation 2+ Echinocytes 1+ Globulin 2.9 gm/dl 3.5 gm/dl Albumin/Globulin Ratio 1.0 1.0 Assessment and Plan 56 year old female admitted with infected proximal UPJ stone and secondary severe sepsis. The patient was on vasopressors support initially which was rapidly weaned. Patient have urology intervention immediately upon admission and has a stent placed to the left ureter. She is currently on antibiotic treatment. The plan for her is as follows: Severe Sepsis with G - bacteremia secondary to acute pyelonephritis - 2/2 infected left Ureteral stone - Day 1 s/p left ureter stent placement by urology - Currently on IV Vancomycin and Imipenem - BP stable now. - On albumin infusion - continuing to be febrile - Urine cultures positive for gram negative bacilli; concern for possible ESBL PICC line has been placed with possible view for prolonged antibiotic course. Left Ureteral stone - Hold Topamax and HCTZ due to risk for stone formation - Cystoscope with stent performed by urology; further management per their recommendations Diarrhea - C diff neg. Follow GISEL on CKD - sec to shock. 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 Has family hx of renal disease with two parents from CKD, ? vasculitis. Work up once stable Hypokalemia - K 2.2 this morning; repleted per ICU Bipolar ds - Continue Citalopram - Continue Lorazepam - Continue Doxepine - Topamax d/acacia due to likely causing nephrolithiasis. - Psychiatry consult for input on adding another mood stabilizer once medically stable. Hypothyroidism - Continue Synthroid DVT Prophylaxis - SCD Knee, ALMA Hose - Heparin 5000 U s.c. TID Code Status - Level I Full Code Disposition - ICU - OT and PT evaluations Reviewed: Pt Seen/Exam by Me History comfortable in bed feeling much better than yesterday overall Constitutional: denies: fever Respiratory: negative: short of breath Cardiovascular: denies chest pain Gastrointestinal/Abdominal: negative: abdominal pain Musculoskeletal: negative: back pain General Appearance: no apparent distress Respiratory: lungs clear, no respiratory distress Cardiovascular: regular rate, rhythm Gastrointestinal: normal bowel sounds, non tender, soft Neurologic/Psychiatric: alert, oriented x 3 Skin Characteristics: warm/dry Assessment/Plan Resident Physician Supervision Note: I was present with Dr. Dolan in bedside. I verified the bee history and physical, reviewed labs and image studies, discussed the case with the resident and agree with the findings and care plan.
[2016-12-29] MEDS: HEPARIN SOD 5000 UNIT/0.5 ML CARP SQ SCH ×2 (14:39→21:42)
[2016-12-29 15:11] LABS: BUN/CREATININE RATIO 10.5 (10-20); CREATININE 1.7 mg/dl (0.60-1.20); MAGNESIUM 2.6 mg/dl (1.8-2.4); POTASSIUM 3.6 mmol/L (3.5-5.1)
[2016-12-29] MEDS ORDERED: COUGH DROP (SUGAR FREE) LOZ 24 LOZ/1 BOX ONE (17:34)
[2016-12-29] MEDS ORDERED: COUGH DROP (SUGAR FREE) LOZ 24 LOZ/1 BOX PO PRN (18:30)
[2016-12-29] MEDS ORDERED: SODIUM CHLORIDE 0.9% 500ML 500 ML IV ONE (19:45)
[2016-12-29] MEDS ORDERED: VANCOMYCIN INJ 1,000 MG in SODIUM CHLORIDE 0.9% 250ML 250 ML IV SCH (20:00)
[2016-12-29] MEDS ORDERED: FUROSEMIDE 40 MG/4 ML VIAL ONE (20:37)
[2016-12-29] MEDS: DOXEPIN HCL 25 MG CAP PO SCH (21:04)
--- NOTE | 2016-12-29 22:10 | DIAGNOSTIC IMAGING REPORT ---
CHEST ONE VIEW PORTABLE CLINICAL HISTORY: resp distress COMPARISON STUDY: 12/28/2016 FINDINGS: There is been interval placement of a right-sided PICC catheter. The tip projects over the superior vena cava. The heart is normal in size. Since the prior study, the patient has developed bilateral pulmonary airspace opacities, most consistent with asymmetric pulmonary edema left greater than right. There are no pleural effusions.[ IMPRESSION: Interval development of a left greater than right asymmetric pulmonary edema pattern. Clinical and radiographic follow-up is recommended. Electronically signed by: Luciano Lopez M.D. 12/29/2016 10:09 PM Dictated Date/Time: 12/29/2016 10:08 PM
[2016-12-29 22:53] LABS: BUN/CREATININE RATIO 11.3 (10-20); CALCIUM 8.3 mg/dl (8.5-10.1); CREATININE 1.6 mg/dl (0.60-1.20); MAGNESIUM 2.4 mg/dl (1.8-2.4); POTASSIUM 3.5 mmol/L (3.5-5.1)
[2016-12-29 22:56] LABS: ALB/GLOB RATIO 1.2 (0.9-2)
[2016-12-29] MEDS: HYDROCORTISONE IV 100 MG in SYRINGE 0 ML IV SCH (23:59)
[2016-12-30] VITALS (17 sets, daily range): BP systolic 89–165; BP diastolic 61–96; PULSE 70–133; TEMP 36–37.7; O2SAT 91–100
[2016-12-30] MEDS: IMIPENEM/CILASTATIN IV 500 MG in D5W 100ML IV SCH ×3 (01:45→17:15)
[2016-12-30 04:14] LABS: HEMATOCRIT 30.7 % (37-47); MEAN CELL VOLUME 86.5 fL (80-100); MEAN CORPUSCULAR HGB CONC 33.6 g/dl (32-36); MEAN PLATELET VOLUME 10.5 fL (7.4-10.4); PLATELET COUNT 265 K/uL (130-400); RED BLOOD COUNT 3.55 M/uL (4.2-5.4)
[2016-12-30 04:32] LABS: CALCIUM 8.2 mg/dl (8.5-10.1); CREATININE 1.5 mg/dl (0.60-1.20); MAGNESIUM 2.5 mg/dl (1.8-2.4); POTASSIUM 3.4 mmol/L (3.5-5.1)
[2016-12-30 04:34] LABS: ALB/GLOB RATIO 1.1 (0.9-2)
[2016-12-30 04:41] LABS: BASO % 0.1 %; BASO ABS # 0.01 K/uL (0-0.2); COMPLETE YES; ECHINOCYTES 1+; EOS % 0.5 %; IG% 0.8 %; LYMPH ABS # 0.76 K/uL (1.2-3.4); MONO % 6.6 %
[2016-12-30] MEDS: HEPARIN SOD 5000 UNIT/0.5 ML CARP SQ SCH ×3 (05:44→21:32)
[2016-12-30] MEDS ORDERED: IMIPENEM/CILASTATIN CONSULT ACTIVE PRN (07:30)
[2016-12-30] MEDS: CITALOPRAM 20 MG TAB PO SCH (08:12)
[2016-12-30] MEDS: HYDROCORTISONE IV 100 MG in SYRINGE 0 ML IV SCH ×3 (08:12→23:51)
[2016-12-30] MEDS: LEVOTHYROXINE SODIUM INJ 50 MCG in SYRINGE 0 ML IV SCH (08:12)
--- NOTE | 2016-12-30 08:38 | Progress Note ---
Subjective Date of Service: Dec 30, 2016. Subjective Pt evaluation today including: conversation w/ patient, chart review, lab review Voiding: burger catheter in place (patent, draining yellow urine ) 56 yo female s/p left ureteral stent placement for stone with sepsis. Pt feeling improved this morning. Denies pain. Eating breakfast. BP is stable. UC&S growing Klebsiella. Amezcua sensitive. She remains afebrile. Problem List Medical Problems: (1) Hydronephrosis with renal and ureteral calculous obstruction Status: Acute (2) UTI (urinary tract infection) Status: Acute Review of Systems Constitutional: No fever, No chills Respiratory: + shortness of breath Cardiac: No chest pain Abdomen: No pain, No nausea, No vomiting Female : No dysuria, No hematuria Heme: No abnormal bleeding/bruising Objective Vital Signs Date Time Temp Pulse Resp B/P (MAP) Pulse Ox O2 Delivery O2 Flow Rate FiO2 12/30/16 08:01 36.6 80 16 109/74 (86) 96 Room Air 12/30/16 08:00 Room Air 12/30/16 07:01 73 20 99/61 (74) 96 Nasal Cannula 2.0 12/30/16 06:01 36.0 71 20 111/75 (87) 97 Nasal Cannula 2.0 12/30/16 05:01 70 18 107/68 (81) 97 Nasal Cannula 4.0 12/30/16 04:01 36.6 75 18 101/69 (80) 96 Nasal Cannula 4.0 12/30/16 04:00 Nasal Cannula 12/30/16 03:01 37.1 80 22 116/76 (89) 95 Nasal Cannula 4.0 12/30/16 02:01 37.1 86 98/66 (77) 95 Nasal Cannula 4.0 12/30/16 01:01 37.6 96 89/68 (75) 94 Nasal Cannula 4.0 12/30/16 00:31 37.7 106 20 113/86 (95) 95 Nasal Cannula 4.0 12/30/16 00:08 37.7 133 28 165/96 (119) 91 Nasal Cannula 4.0 12/30/16 00:00 Nasal Cannula 12/29/16 22:01 38.5 125 26 104/63 (77) 96 Nasal Cannula 4.0 12/29/16 21:31 32.6 128 26 128/87 (101) 90 Nasal Cannula 5.0 12/29/16 21:01 37.6 140 24 147/91 (109) 88 Nasal Cannula 5.0 12/29/16 20:59 38.2 123 21 115/73 (87) 91 Nasal Cannula 5.0 12/29/16 20:31 38.1 110 24 104/79 (87) 87 Nasal Cannula 4.0 12/29/16 20:21 38.1 118 24 136/80 (98) Room Air 12/29/16 20:01 38.0 112 20 131/106 (114) Room Air 12/29/16 20:00 Room Air 12/29/16 19:31 38.0 104 22 123/84 (97) Room Air 12/29/16 18:31 38.0 85 18 80/53 (62) 96 Room Air 12/29/16 18:21 38.0 87 83/50 (61) 96 Room Air 12/29/16 18:01 38.2 91 18 74/49 (57) 95 Room Air 12/29/16 17:43 38.1 105 101/65 (77) Room Air 12/29/16 17:31 38.2 99 77/52 (60) 94 Room Air 12/29/16 17:01 38.5 103 22 90/63 (72) 95 Room Air 12/29/16 16:02 Room Air 12/29/16 16:01 39.0 105 102/64 (77) 95 Room Air 12/29/16 15:46 38.9 105 128/82 (97) 96 Room Air 12/29/16 15:31 38.8 98 105/77 (86) 97 Room Air 12/29/16 13:46 38.8 102 91/61 (71) 93 Room Air 12/29/16 13:00 38.9 98 91/53 (66) 94 Room Air 12/29/16 12:45 39.0 102 12/29/16 12:30 39.2 104 12/29/16 12:15 39.3 109 12/29/16 12:00 Room Air 12/29/16 12:00 39.4 105 26 92/42 (59) 96 Room Air 12/29/16 10:00 38.7 109 26 131/90 (104) 95 Room Air 12/29/16 09:30 37.5 112 24 120/107 (111) 97 Room Air 12/29/16 08:46 36.8 87 26 114/78 (90) 100 Room Air Physical Exam General Appearance: no apparent distress Eyes: normal inspection ENT: hearing grossly normal Neck: no JVD Respiratory/Chest: no respiratory distress, no accessory muscle use Cardiovascular: no JVD Extremities: normal inspection Neurologic/Psychiatric: alert, normal mood/affect, oriented x 3 Skin: normal color Laboratory Results Last 24 Hours Test 12/29/16 09:52 12/29/16 14:38 12/29/16 22:11 12/30/16 03:51 Sodium Level 138 mmol/L 137 mmol/L 140 mmol/L 139 mmol/L Potassium Level 3.1 mmol/L 3.6 mmol/L 3.5 mmol/L 3.4 mmol/L Chloride Level 107 mmol/L 109 mmol/L 111 mmol/L 111 mmol/L Carbon Dioxide Level 22 mmol/L 20 mmol/L 20 mmol/L 22 mmol/L Anion Gap 9.0 mmol/L 8.0 mmol/L 9.0 mmol/L 6.0 mmol/L Blood Urea Nitrogen 18 mg/dl 18 mg/dl 18 mg/dl 18 mg/dl Creatinine 1.80 mg/dl 1.70 mg/dl 1.60 mg/dl 1.50 mg/dl Est Creatinine Clear Calc Drug Dose 30.9 ml/min 32.7 ml/min 34.7 ml/min 37.0 ml/min Estimated GFR () 36.3 38.9 41.9 45.3 Estimated GFR (Non- 31.4 33.6 36.2 39.1 BUN/Creatinine Ratio 9.9 10.5 11.3 12.0 Random Glucose 87 mg/dl 106 mg/dl 105 mg/dl 122 mg/dl Calcium Level 8.5 mg/dl 8.0 mg/dl 8.3 mg/dl 8.2 mg/dl Magnesium Level 2.9 mg/dl 2.6 mg/dl 2.4 mg/dl 2.5 mg/dl Total Bilirubin 1.3 mg/dl 1.1 mg/dl 0.9 mg/dl Aspartate Amino Transf (AST/SGOT) 34 U/L 37 U/L 28 U/L Alanine Aminotransferase (ALT/SGPT) 23 U/L 26 U/L 27 U/L Alkaline Phosphatase 111 U/L 160 U/L 157 U/L Total Protein 7.2 gm/dl 6.3 gm/dl 6.0 gm/dl Albumin 3.7 gm/dl 3.4 gm/dl 3.2 gm/dl Globulin 3.5 gm/dl 2.9 gm/dl 2.8 gm/dl Albumin/Globulin Ratio 1.0 1.2 1.1 White Blood Count 19.10 K/uL Red Blood Count 3.55 M/uL Hemoglobin 10.3 g/dL Hematocrit 30.7 % Mean Corpuscular Volume 86.5 fL Mean Corpuscular Hemoglobin 29.0 pg Mean Corpuscular Hemoglobin Concent 33.6 g/dl Platelet Count 265 K/uL Mean Platelet Volume 10.5 fL Neutrophils (%) (Auto) 88.0 % Lymphocytes (%) (Auto) 4.0 % Monocytes (%) (Auto) 6.6 % Eosinophils (%) (Auto) 0.5 % Basophils (%) (Auto) 0.1 % Neutrophils # (Auto) 16.81 K/uL Lymphocytes # (Auto) 0.76 K/uL Monocytes # (Auto) 1.27 K/uL Eosinophils # (Auto) 0.09 K/uL Basophils # (Auto) 0.01 K/uL RDW Standard Deviation 45.3 fL RDW Coefficient of Variation 14.4 % Immature Granulocyte % (Auto) 0.8 % Immature Granulocyte # (Auto) 0.16 K/uL Echinocytes 1+ Assessment and Plan POD #2 s/p left ureteral stent placement for sepsis Management of sepsis per ID. Recommend a minimum of 2 weeks of abx. Will plan for definitive management of stone once infection has been adequately treated and the pt is clincally improved. Trial of void when OK with primary service. Will continue to follow along with primary service at this time.
--- NOTE | 2016-12-30 09:30 | Critical Care Progress Note ---
Critical Care Progress Note Date of Service Dec 30, 2016. Attending Dr. Anglin Subjective overnight the pt developed increased sob with wheezing. she did receive 4 liters total fluid resuscitation, no cough ordered for bipap but she did not need it. no NV reported no dysphagia, no abdominal pain. Objective as above. Current SOFA Score SOFA Score Response (Comments) Value PaO2/FiO2 (mmHg) < 400 1 SaO2 / FIO2 221 - 301 1 Platelets (x10) > 150 0 Bilirubin (mg/dL) < 1.2 0 Danyel Coma Score 15 0 Level of Hypotension No Hypotension 0 Creatinine (mg/dL) < 1.2 0 Total 2 Assessment & Plan 1- septic shock, resolving. 2- GISEL, stable. slightly improving. 3- Bipolar disorder. 4- active smoker. 5- multiple splanchnic aneurysms, etiology ? , ? vasculitis. 6- pulmonary edema, likely Iatrogenic but why? , diastolic dysfunction? , CVP was 13, now 10. 7- acute pyelonephritis. GNR in the urine of Kleb pansensitive, in the blood has not been identified. Plan: 1- continue Imipenem until blood cultures identified Kleb as well. then Abx can be changed to ceftriaxone 2 gm daily ( due to bacteremia). 2- stop IVF, as the CVP is 10. 3- stop Topamax, concerns for inducing urolithiasis. 4- encourage oral intake. 5- DVT prophylaxis. 6- OOB if possible. 7- obtain Echo , eval for diastolic dysfunction. 8- she will need OP eval for vasculitis, due to incidental findings with aneurysms intra-abdominal. 9- daily labs, WBC already trending down to 18. 10- smoking cessation . 11- discussed with the staff on rounds in details. discussed with the family at the bed side, all in agreement with the plan. 12- replete K. 13- full code. 14- no skin issues. CCT 45 min. Consults & Procedures Consultants: urology and CCM. Procedures: ureteral stenting Data Medications: Current Inpatient Medications Medications (Trade) Dose Ordered Sig/Jimmy Route Start Time Stop Time Status Last Admin Dose Admin Ioversol (Optiray 320) 111 ml UD PRN IV 12/28/16 17:45 01/01/17 17:44 Acetaminophen (Tylenol Tab) 650 mg Q4H PRN PO 12/28/16 19:30 01/27/17 19:29 12/29/16 09:55 650 MG Al Hydrox/Mg Hydrox/Simethicone (Maalox Max Susp) 15 ml Q4H PRN PO 12/28/16 19:30 01/27/17 19:29 Magnesium Hydroxide (Milk Of Magnesia Susp) 30 ml Q12H PRN PO 12/28/16 19:30 01/27/17 19:29 Ondansetron HCl (Zofran Inj) 4 mg Q6H PRN IV 12/28/16 19:30 01/27/17 19:29 Polyethylene (Miralax Powder Packet) 17 gm DAILY PRN PO 12/28/16 19:30 01/27/17 19:29 Lorazepam (Ativan Inj) 0.5 mg Q4H PRN IV 12/28/16 19:30 01/27/17 19:29 12/29/16 21:05 0.5 MG Levothyroxine Sodium 50 mcg/ Syringe 2.5 ml @ 2 mls/min DAILY@09 IV 12/28/16 19:30 01/27/17 19:29 12/30/16 08:12 2 MLS/MIN Norepinephrine Bitartrate 8 mg/ Dextrose 508 ml @ 0 mls/hr Q0M PRN IV 12/28/16 19:45 01/27/17 19:44 12/28/16 20:08 25.5 MLS/HR Potassium Chloride/Sodium Chloride 1,000 ml @ 75 mls/hr [id number] IV 12/28/16 22:30 01/27/17 22:29 Future Hold 12/29/16 17:29 150 MLS/HR Acetaminophen 100 ml @ 400 mls/hr Q8H PRN IV 12/29/16 00:15 01/28/17 00:14 12/29/16 23:59 400 MLS/HR Heparin Sodium (Porcine) (Heparin Sq 5000 Unit/0.5ml) 5,000 unit Q8 SQ 12/29/16 14:00 01/28/17 13:59 12/30/16 05:44 5,000 UNIT Citalopram Hydrobromide (celeXA TAB) 20 mg QAM PO 12/29/16 09:00 01/28/17 08:59 12/30/16 08:12 20 MG Doxepin HCl (Sinequan Cap) 25 mg HS PO 12/29/16 21:00 01/28/17 20:59 12/29/16 21:04 25 MG Imipenem/ Cilastatin Sodium 500 mg/Dextrose 110 ml @ 110 mls/hr Q8H IV 12/29/16 10:00 01/08/17 09:59 12/30/16 01:45 110 MLS/HR Menthol (Nice Mendez) 1 mendez PRN PRN PO 12/29/16 18:30 01/28/17 18:29 Hydrocortisone Sodium Succinate 100 mg/Syringe 2 ml @ 4 mls/min Q8H IV 12/30/16 00:00 01/29/17 00:00 12/30/16 08:12 4 MLS/MIN Imipenem/ Cilastatin Sodium (Consult) 1 ea UD PRN N/A 12/30/16 07:30 01/29/17 07:29 Vital Signs: Date Time Temp Pulse Resp B/P (MAP) Pulse Ox O2 Delivery O2 Flow Rate FiO2 12/30/16 08:01 36.6 80 16 109/74 (86) 96 Room Air 12/30/16 08:00 Room Air 12/30/16 07:01 73 20 99/61 (74) 96 Nasal Cannula 2.0 12/30/16 06:01 36.0 71 20 111/75 (87) 97 Nasal Cannula 2.0 12/30/16 05:01 70 18 107/68 (81) 97 Nasal Cannula 4.0 12/30/16 04:01 36.6 75 18 101/69 (80) 96 Nasal Cannula 4.0 12/30/16 04:00 Nasal Cannula 12/30/16 03:01 37.1 80 22 116/76 (89) 95 Nasal Cannula 4.0 12/30/16 02:01 37.1 86 98/66 (77) 95 Nasal Cannula 4.0 12/30/16 01:01 37.6 96 89/68 (75) 94 Nasal Cannula 4.0 12/30/16 00:31 37.7 106 20 113/86 (95) 95 Nasal Cannula 4.0 12/30/16 00:08 37.7 133 28 165/96 (119) 91 Nasal Cannula 4.0 12/30/16 00:00 Nasal Cannula 12/29/16 22:01 38.5 125 26 104/63 (77) 96 Nasal Cannula 4.0 12/29/16 21:31 32.6 128 26 128/87 (101) 90 Nasal Cannula 5.0 12/29/16 21:01 37.6 140 24 147/91 (109) 88 Nasal Cannula 5.0 12/29/16 20:59 38.2 123 21 115/73 (87) 91 Nasal Cannula 5.0 12/29/16 20:31 38.1 110 24 104/79 (87) 87 Nasal Cannula 4.0 12/29/16 20:21 38.1 118 24 136/80 (98) Room Air 12/29/16 20:01 38.0 112 20 131/106 (114) Room Air 12/29/16 20:00 Room Air 12/29/16 19:31 38.0 104 22 123/84 (97) Room Air 12/29/16 18:31 38.0 85 18 80/53 (62) 96 Room Air 12/29/16 18:21 38.0 87 83/50 (61) 96 Room Air 12/29/16 18:01 38.2 91 18 74/49 (57) 95 Room Air 12/29/16 17:43 38.1 105 101/65 (77) Room Air 12/29/16 17:31 38.2 99 77/52 (60) 94 Room Air 12/29/16 17:01 38.5 103 22 90/63 (72) 95 Room Air 12/29/16 16:02 Room Air 12/29/16 16:01 39.0 105 102/64 (77) 95 Room Air 12/29/16 15:46 38.9 105 128/82 (97) 96 Room Air 12/29/16 15:31 38.8 98 105/77 (86) 97 Room Air 12/29/16 13:46 38.8 102 91/61 (71) 93 Room Air 12/29/16 13:00 38.9 98 91/53 (66) 94 Room Air 12/29/16 12:45 39.0 102 12/29/16 12:30 39.2 104 12/29/16 12:15 39.3 109 12/29/16 12:00 Room Air 12/29/16 12:00 39.4 105 26 92/42 (59) 96 Room Air 12/29/16 10:00 38.7 109 26 131/90 (104) 95 Room Air 12/29/16 09:30 37.5 112 24 120/107 (111) 97 Room Air Laboratory Results: Last 24 Hours Test 12/29/16 09:52 12/29/16 14:38 12/29/16 22:11 12/30/16 03:51 Sodium Level 138 mmol/L 137 mmol/L 140 mmol/L 139 mmol/L Potassium Level 3.1 mmol/L 3.6 mmol/L 3.5 mmol/L 3.4 mmol/L Chloride Level 107 mmol/L 109 mmol/L 111 mmol/L 111 mmol/L Carbon Dioxide Level 22 mmol/L 20 mmol/L 20 mmol/L 22 mmol/L Anion Gap 9.0 mmol/L 8.0 mmol/L 9.0 mmol/L 6.0 mmol/L Blood Urea Nitrogen 18 mg/dl 18 mg/dl 18 mg/dl 18 mg/dl Creatinine 1.80 mg/dl 1.70 mg/dl 1.60 mg/dl 1.50 mg/dl Est Creatinine Clear Calc Drug Dose 30.9 ml/min 32.7 ml/min 34.7 ml/min 37.0 ml/min Estimated GFR () 36.3 38.9 41.9 45.3 Estimated GFR (Non- 31.4 33.6 36.2 39.1 BUN/Creatinine Ratio 9.9 10.5 11.3 12.0 Random Glucose 87 mg/dl 106 mg/dl 105 mg/dl 122 mg/dl Calcium Level 8.5 mg/dl 8.0 mg/dl 8.3 mg/dl 8.2 mg/dl Magnesium Level 2.9 mg/dl 2.6 mg/dl 2.4 mg/dl 2.5 mg/dl Total Bilirubin 1.3 mg/dl 1.1 mg/dl 0.9 mg/dl Aspartate Amino Transf (AST/SGOT) 34 U/L 37 U/L 28 U/L Alanine Aminotransferase (ALT/SGPT) 23 U/L 26 U/L 27 U/L Alkaline Phosphatase 111 U/L 160 U/L 157 U/L Total Protein 7.2 gm/dl 6.3 gm/dl 6.0 gm/dl Albumin 3.7 gm/dl 3.4 gm/dl 3.2 gm/dl Globulin 3.5 gm/dl 2.9 gm/dl 2.8 gm/dl Albumin/Globulin Ratio 1.0 1.2 1.1 White Blood Count 19.10 K/uL Red Blood Count 3.55 M/uL Hemoglobin 10.3 g/dL Hematocrit 30.7 % Mean Corpuscular Volume 86.5 fL Mean Corpuscular Hemoglobin 29.0 pg Mean Corpuscular Hemoglobin Concent 33.6 g/dl Platelet Count 265 K/uL Mean Platelet Volume 10.5 fL Neutrophils (%) (Auto) 88.0 % Lymphocytes (%) (Auto) 4.0 % Monocytes (%) (Auto) 6.6 % Eosinophils (%) (Auto) 0.5 % Basophils (%) (Auto) 0.1 % Neutrophils # (Auto) 16.81 K/uL Lymphocytes # (Auto) 0.76 K/uL Monocytes # (Auto) 1.27 K/uL Eosinophils # (Auto) 0.09 K/uL Basophils # (Auto) 0.01 K/uL RDW Standard Deviation 45.3 fL RDW Coefficient of Variation 14.4 % Immature Granulocyte % (Auto) 0.8 % Immature Granulocyte # (Auto) 0.16 K/uL Echinocytes 1+
--- NOTE | 2016-12-30 11:24 | Family Medicine Progress Note ---
Progress Note Date of Service Dec 30, 2016. Subjective Pt evaluation today including: conversation w/ patient, physical exam, chart review, lab review Pain: None currently PO Intake: Good appetite Voiding: no voiding problems, burger catheter in place Doing well this morning Overnight events reviewed; patient went into flash pulmonary edema and required Lasix; Hydrocortisone was started Breathing is better this morning; denies coughing, wheezing, sputum, chest pain or orthopnea. Patient reports concern for stopping her Topamax and keep Bipolar controlled. Additional Comments: A 10 point review of systems was negative unless stated above. Medications Current Inpatient Medications Medications (Trade) Dose Ordered Sig/Jimmy Route Start Time Stop Time Status Last Admin Dose Admin Ioversol (Optiray 320) 111 ml UD PRN IV 12/28/16 17:45 01/01/17 17:44 Acetaminophen (Tylenol Tab) 650 mg Q4H PRN PO 12/28/16 19:30 01/27/17 19:29 12/29/16 09:55 650 MG Al Hydrox/Mg Hydrox/Simethicone (Maalox Max Susp) 15 ml Q4H PRN PO 12/28/16 19:30 01/27/17 19:29 Magnesium Hydroxide (Milk Of Magnesia Susp) 30 ml Q12H PRN PO 12/28/16 19:30 01/27/17 19:29 Ondansetron HCl (Zofran Inj) 4 mg Q6H PRN IV 12/28/16 19:30 01/27/17 19:29 Polyethylene (Miralax Powder Packet) 17 gm DAILY PRN PO 12/28/16 19:30 01/27/17 19:29 Lorazepam (Ativan Inj) 0.5 mg Q4H PRN IV 12/28/16 19:30 01/27/17 19:29 12/29/16 21:05 0.5 MG Levothyroxine Sodium 50 mcg/ Syringe 2.5 ml @ 2 mls/min DAILY@09 IV 12/28/16 19:30 01/27/17 19:29 12/30/16 08:12 2 MLS/MIN Norepinephrine Bitartrate 8 mg/ Dextrose 508 ml @ 0 mls/hr Q0M PRN IV 12/28/16 19:45 01/27/17 19:44 12/28/16 20:08 25.5 MLS/HR Potassium Chloride/Sodium Chloride 1,000 ml @ 75 mls/hr [id number] IV 12/28/16 22:30 01/27/17 22:29 Future Hold 12/29/16 17:29 150 MLS/HR Acetaminophen 100 ml @ 400 mls/hr Q8H PRN IV 12/29/16 00:15 01/28/17 00:14 12/29/16 23:59 400 MLS/HR Heparin Sodium (Porcine) (Heparin Sq 5000 Unit/0.5ml) 5,000 unit Q8 SQ 12/29/16 14:00 01/28/17 13:59 12/30/16 05:44 5,000 UNIT Citalopram Hydrobromide (celeXA TAB) 20 mg QAM PO 12/29/16 09:00 01/28/17 08:59 12/30/16 08:12 20 MG Doxepin HCl (Sinequan Cap) 25 mg HS PO 12/29/16 21:00 01/28/17 20:59 12/29/16 21:04 25 MG Imipenem/ Cilastatin Sodium 500 mg/Dextrose 110 ml @ 110 mls/hr Q8H IV 12/29/16 10:00 01/08/17 09:59 12/30/16 10:40 110 MLS/HR Menthol (Nice Mendez) 1 mendez PRN PRN PO 12/29/16 18:30 01/28/17 18:29 Hydrocortisone Sodium Succinate 100 mg/Syringe 2 ml @ 4 mls/min Q8H IV 12/30/16 00:00 01/29/17 00:00 12/30/16 08:12 4 MLS/MIN Imipenem/ Cilastatin Sodium (Consult) 1 ea UD PRN N/A 12/30/16 07:30 01/29/17 07:29 Objective Physical Exam General Appearance: WD/WN, no apparent distress Eyes: normal inspection, EOMI ENT: normal ENT inspection, hearing grossly normal, pharynx normal Neck: supple, no adenopathy, no JVD Respiratory/Chest: lungs clear, no respiratory distress Cardiovascular: regular rate, rhythm, no gallop, no murmur Abdomen: normal bowel sounds, soft, + pertinent finding (mild left flank/CVA tenderness; improved from day prior) Extremities: normal range of motion, non-tender Neurologic/Psychiatric: alert, normal mood/affect, oriented x 3 Skin: normal color, warm/dry, no rash Lymphatic: no adenopathy Laboratory Results Last 24 Hours Test 12/29/16 14:38 12/29/16 22:11 12/30/16 03:51 Sodium Level 137 mmol/L 140 mmol/L 139 mmol/L Potassium Level 3.6 mmol/L 3.5 mmol/L 3.4 mmol/L Chloride Level 109 mmol/L 111 mmol/L 111 mmol/L Carbon Dioxide Level 20 mmol/L 20 mmol/L 22 mmol/L Anion Gap 8.0 mmol/L 9.0 mmol/L 6.0 mmol/L Blood Urea Nitrogen 18 mg/dl 18 mg/dl 18 mg/dl Creatinine 1.70 mg/dl 1.60 mg/dl 1.50 mg/dl Est Creatinine Clear Calc Drug Dose 32.7 ml/min 34.7 ml/min 37.0 ml/min Estimated GFR () 38.9 41.9 45.3 Estimated GFR (Non- 33.6 36.2 39.1 BUN/Creatinine Ratio 10.5 11.3 12.0 Random Glucose 106 mg/dl 105 mg/dl 122 mg/dl Calcium Level 8.0 mg/dl 8.3 mg/dl 8.2 mg/dl Magnesium Level 2.6 mg/dl 2.4 mg/dl 2.5 mg/dl Total Bilirubin 1.1 mg/dl 0.9 mg/dl Aspartate Amino Transf (AST/SGOT) 37 U/L 28 U/L Alanine Aminotransferase (ALT/SGPT) 26 U/L 27 U/L Alkaline Phosphatase 160 U/L 157 U/L Total Protein 6.3 gm/dl 6.0 gm/dl Albumin 3.4 gm/dl 3.2 gm/dl Globulin 2.9 gm/dl 2.8 gm/dl Albumin/Globulin Ratio 1.2 1.1 White Blood Count 19.10 K/uL Red Blood Count 3.55 M/uL Hemoglobin 10.3 g/dL Hematocrit 30.7 % Mean Corpuscular Volume 86.5 fL Mean Corpuscular Hemoglobin 29.0 pg Mean Corpuscular Hemoglobin Concent 33.6 g/dl Platelet Count 265 K/uL Mean Platelet Volume 10.5 fL Neutrophils (%) (Auto) 88.0 % Lymphocytes (%) (Auto) 4.0 % Monocytes (%) (Auto) 6.6 % Eosinophils (%) (Auto) 0.5 % Basophils (%) (Auto) 0.1 % Neutrophils # (Auto) 16.81 K/uL Lymphocytes # (Auto) 0.76 K/uL Monocytes # (Auto) 1.27 K/uL Eosinophils # (Auto) 0.09 K/uL Basophils # (Auto) 0.01 K/uL RDW Standard Deviation 45.3 fL RDW Coefficient of Variation 14.4 % Immature Granulocyte % (Auto) 0.8 % Immature Granulocyte # (Auto) 0.16 K/uL Echinocytes 1+ Assessment and Plan 56 year old female admitted with infected proximal UPJ stone and secondary severe sepsis. Sepsis resolving. Did have flash pulmonary edema 2/2 fluids. Was diuresed and is feeling better this morning and off any additional respiratory support. The plan for her is as follows: Severe Sepsis with G - bacteremia secondary to acute pyelonephritis - 2/2 infected left Ureteral stone - Day 2 s/p left ureter stent placement by urology - Urine positive for pansensitive Klebsiella; blood cultures positive for gram negative (sensitivities pending) - Continue IV Imipenem - Hydrocortisone started overnight for pressure support - BP stable now off vasopressor support - On albumin infusion - continuing to be febrile - Afebrile Left Ureteral stone - Hold Topamax and HCTZ due to risk for stone formation - Cystoscope with stent performed by urology; further management per their recommendations Diarrhea - C diff neg - Monitor Clinically GISEL on CKD - Cr 2.1 on arrival - Improving today to 1.5 - Continue monitoring daily BMP; likely 2/2 sepsis and hypotension 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 - Family History of renal disease with two parents from CKD, ? vasculitis. - Work up once stable Hypokalemia - Improved to 3.4 today Bipolar Disorder - Continue Citalopram - Continue Lorazepam - Continue Doxepine - Stop Topamax due to risk of kidney stone formation - Mental health consultation for recommendations on replacement therapy in the absence of Topmax Hypothyroidism - Continue Synthroid DVT Prophylaxis - SCD Knee, ALMA Hose - Heparin 5000 U s.c. TID Code Status - Level I Full Code Disposition - Transferred to telemetry - OT and PT evaluations Continued [facility] stay due to: multiple IV medications needed Discharge planning: uncertain Reviewed: Pt Seen/Exam by Me History alert this am was febrile last evening had to have cooling blanket placed then became hypothermic pressure dropped early am. hydrocortisone added. denies any complains this am Respiratory: negative: short of breath Cardiovascular: denies chest pain Gastrointestinal/Abdominal: negative: abdominal pain General Appearance: no apparent distress Respiratory: lungs clear, no respiratory distress Cardiovascular: regular rate, rhythm Gastrointestinal: normal bowel sounds, non tender, soft Neurologic/Psychiatric: alert, oriented x 3 Skin Characteristics: warm/dry Assessment/Plan Resident Physician Supervision Note: I was present with Dr. Dolan in bedside. I verified the bee history and physical, reviewed labs and image studies, discussed the case with the resident and agree with the findings and care plan.
--- NOTE | 2016-12-30 12:17 | ECHOCARDIOGRAM REPORT ---
*NOTICE TO RECEIVING REPUBL[employer] AGENCY This information is strictly Confidential and protected under [place] law. [place] law prohibits you from making any further disclosure of this information unless further disclosure is expressly permitted by the written consent of the person to whom it pertains or is authorized by law. A general authorization for the release of medical or other information is not sufficient for this purpose. Hospital accepts no responsibility if the information is made available to any other person, INCLUDING THE PATIENT. Interpretation Summary * Name: JOANNA VELÁSQUEZ Study Date: 12/30/2016 09:52 AM BP: 119/76 mmHg * Patient Location: [facility] HR: 91 * : 1960 (M/d/yyyy) Gender: Female Height: 64 in * Age: 56 yrs Ethnicity: [place] Weight: 138 lb * Ordering Physician: LUIS E SCALES MD * Performed By: Paula Olson RCS * * Reason For Study: CHF * BSA: 1.7 m2 * -- Conclusions -- * 1. Normal left ventricular size and systolic function. EF 55-60%. No regional wall motion abnormalities. No left ventricular hypertrophy. No significant diastolic dysfunction. * 2. There is mild to moderate mitral regurgitation. * 3. There is mild to moderate tricuspid regurgitation. * 4. Top-normal estimated right ventricular systolic pressure. * 5. No prior study available for comparison. Procedure Details * A complete two-dimensional transthoracic echocardiogram was performed (2D, M-mode, Doppler and color flow Doppler). Left Ventricle * Normal left ventricular size and systolic function. EF 55-60%. No regional wall motion abnormalities. No left ventricular hypertrophy. No significant diastolic dysfunction. Right Ventricle * The right ventricle is normal in size and function. * The right ventricular systolic function is normal as assessed by tricuspid annular plane systolic excursion (TAPSE) (normal >1.5 cm). Atria * The left atrial size is normal. * Right atrial size is normal. * There is no evidence of atrial septal defect, but resolution does not allow assessment for a patent foramen ovale. Mitral Valve * The mitral valve is grossly normal. * There is no mitral valve stenosis. * There is mild to moderate mitral regurgitation. Tricuspid Valve * The tricuspid valve is not well visualized, but is grossly normal. * There is no tricuspid stenosis. * There is mild to moderate tricuspid regurgitation. Aortic Valve * The aortic valve is trileaflet. * No hemodynamically significant valvular aortic stenosis. * No aortic regurgitation is present. Pulmonic Valve * The pulmonic valve is not well seen, but is grossly normal. * There is no pulmonic valvular stenosis. * Mild pulmonic valvular regurgitation. Great Vessels * The aortic root is normal size. * Aortic arch of normal dimension. * Normal pulmonary venous flow pattern. Pericardium/Pleural * There is no pericardial effusion. Great Vessels * Dilated IVC. MMode 2D Measurements and Calculations IVSd 1.0 cm IVSs 1.3 cm LVIDd 4.4 cm LVIDs 2.7 cm LVPWd 1.1 cm LVPWs 1.1 cm IVS/LVPW 0.98 FS 39.1 % EDV(Teich) 86.9 ml ESV(Teich) 26.3 ml EF(Teich) 69.8 % EDV(cubed) 84.2 ml ESV(cubed) 19.0 ml EF(cubed) 77.4 % % IVS thick 29.0 % % LVPW thick 1.9 % LV mass(C)d 157.2 grams LV mass(C)dI 94.1 grams/m\S\2 LV mass(C)s 94.6 grams LV mass(C)sI 56.6 grams/m\S\2 SV(Teich) 60.6 ml SI(Teich) 36.3 ml/m\S\2 SV(cubed) 65.1 ml SI(cubed) 39.0 ml/m\S\2 Ao root diam 2.8 cm Ao root area 6.1 cm\S\2 ACS 1.9 cm LA dimension 3.8 cm LA/Ao 1.4 LVOT diam 2.0 cm LVOT area 3.2 cm\S\2 LVAd ap2 23.2 cm\S\2 LVLd ap2 7.3 cm EDV(MOD-sp2) 63.9 ml EDV(sp2-el) 63.1 ml LVAs ap2 14.1 cm\S\2 LVLs ap2 6.1 cm ESV(MOD-sp2) 27.9 ml ESV(sp2-el) 27.6 ml EF(MOD-sp2) 56.4 % EF(sp2-el) 56.2 % SV(MOD-sp2) 36.0 ml SI(MOD-sp2) 21.6 ml/m\S\2 SV(sp2-el) 35.5 ml SI(sp2-el) 21.2 ml/m\S\2 Doppler Measurements and Calculations MV E max tiago 80.3 cm/sec MV A max tiago 65.8 cm/sec MV E/A 1.2 MV P1/2t max tiago 89.7 cm/sec MV P1/2t 53.9 msec MVA(P1/2t) 4.1 cm\S\2 MV dec slope 487.4 cm/sec\S\2 MV dec time 0.20 sec Ao V2 max 125.8 cm/sec Ao max PG 6.3 mmHg Ao max PG (full) 3.6 mmHg ISRA(V,A) 2.1 cm\S\2 ISRA(V,D) 2.1 cm\S\2 LV V1 max PG 2.8 mmHg LV V1 max 83.0 cm/sec MR max tiago 550.8 cm/sec MR max PG 121.6 mmHg TV E max tiago 100.8 cm/sec PA V2 max 78.5 cm/sec PA max PG 2.5 mmHg PI max tiago 166.5 cm/sec PI max PG 11.1 mmHg PI dec slope 341.1 cm/sec\S\2 PI P1/2t 143.0 msec TR max tiago 269.2 cm/sec RVSP(TR) 37.0 mmHg RAP systole 8.0 mmHg
[2016-12-30] MEDS ORDERED: NURSING VERBAL MED ORDER ONE (15:15)
--- NOTE | 2016-12-30 17:39 | Infectious Disease Progress Nt ---
Progress Note Date of Service Dec 30, 2016. Subjective Pt evaluation today including: conversation w/ patient, physical exam, chart review, lab review, review of studies, conversation w/ regional engagement consultant, review of inpatient medication list had episode of fever and flash pulmonary edema last night, feeling much better this morning, currently afebrile and hemodynamically stable. Urine culture growing sensitive Klebsiella pneumoniae. No other new specific complaints. All Other Systems: Reviewed and Negative Medications Current Inpatient Medications Medications (Trade) Dose Ordered Sig/Jimmy Route Start Time Stop Time Status Last Admin Dose Admin Ioversol (Optiray 320) 111 ml UD PRN IV 12/28/16 17:45 01/01/17 17:44 Acetaminophen (Tylenol Tab) 650 mg Q4H PRN PO 12/28/16 19:30 01/27/17 19:29 12/29/16 09:55 650 MG Al Hydrox/Mg Hydrox/Simethicone (Maalox Max Susp) 15 ml Q4H PRN PO 12/28/16 19:30 01/27/17 19:29 Magnesium Hydroxide (Milk Of Magnesia Susp) 30 ml Q12H PRN PO 12/28/16 19:30 01/27/17 19:29 Ondansetron HCl (Zofran Inj) 4 mg Q6H PRN IV 12/28/16 19:30 01/27/17 19:29 Polyethylene (Miralax Powder Packet) 17 gm DAILY PRN PO 12/28/16 19:30 01/27/17 19:29 Lorazepam (Ativan Inj) 0.5 mg Q4H PRN IV 12/28/16 19:30 01/27/17 19:29 12/29/16 21:05 0.5 MG Acetaminophen 100 ml @ 400 mls/hr Q8H PRN IV 12/29/16 00:15 01/28/17 00:14 12/29/16 23:59 400 MLS/HR Heparin Sodium (Porcine) (Heparin Sq 5000 Unit/0.5ml) 5,000 unit Q8 SQ 12/29/16 14:00 01/28/17 13:59 12/30/16 13:50 5,000 UNIT Citalopram Hydrobromide (celeXA TAB) 20 mg QAM PO 12/29/16 09:00 01/28/17 08:59 12/30/16 08:12 20 MG Doxepin HCl (Sinequan Cap) 25 mg HS PO 12/29/16 21:00 01/28/17 20:59 12/29/16 21:04 25 MG Imipenem/ Cilastatin Sodium 500 mg/Dextrose 110 ml @ 110 mls/hr Q8H IV 12/29/16 10:00 01/08/17 09:59 12/30/16 17:15 110 MLS/HR Menthol (Nice Mendez) 1 mendez PRN PRN PO 12/29/16 18:30 01/28/17 18:29 Hydrocortisone Sodium Succinate 100 mg/Syringe 2 ml @ 4 mls/min Q8H IV 12/30/16 00:00 01/29/17 00:00 12/30/16 17:15 4 MLS/MIN Imipenem/ Cilastatin Sodium (Consult) 1 ea UD PRN N/A 12/30/16 07:30 01/29/17 07:29 Levothyroxine Sodium (Synthroid Tab) 88 mcg DAILYBB PO 12/31/16 06:00 01/30/17 05:59 Lorazepam (Ativan Tab) 1 mg HS PO 12/30/16 21:00 01/29/17 20:59 Objective Vital Signs Date Time Temp Pulse Resp B/P (MAP) Pulse Ox O2 Delivery O2 Flow Rate FiO2 12/30/16 16:00 Room Air 12/30/16 15:44 36.5 91 16 134/83 (100) 100 Room Air 12/30/16 13:57 78 18 127/78 (94) 100 Room Air 12/30/16 12:03 36.6 89 12/30/16 12:00 Room Air 12/30/16 11:01 91 16 132/91 (105) 96 Room Air 12/30/16 10:00 89 16 119/76 (90) 96 Room Air 12/30/16 09:01 77 18 104/67 (79) 95 Room Air 12/30/16 08:01 36.6 80 16 109/74 (86) 96 Room Air 12/30/16 08:00 Room Air Nasal Cannula 12/30/16 08:00 Room Air 12/30/16 07:01 73 20 99/61 (74) 96 Nasal Cannula 2.0 12/30/16 06:01 36.0 71 20 111/75 (87) 97 Nasal Cannula 2.0 12/30/16 05:01 70 18 107/68 (81) 97 Nasal Cannula 4.0 12/30/16 04:01 36.6 75 18 101/69 (80) 96 Nasal Cannula 4.0 12/30/16 04:00 Nasal Cannula 12/30/16 03:01 37.1 80 22 116/76 (89) 95 Nasal Cannula 4.0 12/30/16 02:01 37.1 86 98/66 (77) 95 Nasal Cannula 4.0 12/30/16 01:01 37.6 96 89/68 (75) 94 Nasal Cannula 4.0 12/30/16 00:31 37.7 106 20 113/86 (95) 95 Nasal Cannula 4.0 12/30/16 00:08 37.7 133 28 165/96 (119) 91 Nasal Cannula 4.0 12/30/16 00:00 Nasal Cannula 12/29/16 22:01 38.5 125 26 104/63 (77) 96 Nasal Cannula 4.0 12/29/16 21:31 32.6 128 26 128/87 (101) 90 Nasal Cannula 5.0 12/29/16 21:01 37.6 140 24 147/91 (109) 88 Nasal Cannula 5.0 12/29/16 20:59 38.2 123 21 115/73 (87) 91 Nasal Cannula 5.0 12/29/16 20:31 38.1 110 24 104/79 (87) 87 Nasal Cannula 4.0 12/29/16 20:21 38.1 118 24 136/80 (98) Room Air 12/29/16 20:01 38.0 112 20 131/106 (114) Room Air 12/29/16 20:00 Room Air 12/29/16 19:31 38.0 104 22 123/84 (97) Room Air 12/29/16 18:31 38.0 85 18 80/53 (62) 96 Room Air 12/29/16 18:21 38.0 87 83/50 (61) 96 Room Air 12/29/16 18:01 38.2 91 18 74/49 (57) 95 Room Air 12/29/16 17:43 38.1 105 101/65 (77) Room Air Physical Exam General Appearance: WD/WN, no apparent distress Eyes: normal inspection, EOMI, sclerae normal ENT: normal ENT inspection, pharynx normal Neck: supple, no adenopathy, thyroid normal, trachea midline Respiratory/Chest: chest non-tender, no respiratory distress, no accessory muscle use Cardiovascular: regular rate, rhythm, no gallop, no murmur Abdomen: normal bowel sounds, non tender, soft, no organomegaly Extremities: non-tender, no calf tenderness Neurologic/Psychiatric: alert, oriented x 3 Skin: normal color, no rash Lymphatic: no adenopathy Laboratory Results RUN DATE: 12/30/16 [facility] LAB PAGE 1 RUN TIME: 1115 Specimen Inquiry PATIENT: JOANNA VELÁSQUEZ [facility] U # : [id number] AGE/SX: 56/F ROOM: E105 REG : 12/28/[address]: Lali Carlin M.D. : 1960 BED: 1 DIS : STATUS: ADM IN TLOC: SPEC #: [id number] MERCEDEZ: 12/28/16 STATUS: COMP REQ #: [id number] RECD: 12/28/[address]: Nette Rodriguez M.D. SOURCE: URINE CATH ENTR: 12/28/[address]: Esthela Fallon, Assigned [facility]: ORDERED: CULTURE UR CATH Procedure Result Verified Site URINE CULTURE Final 12/30/16-1115 Organism 1 KLEBSIELLA PNEUMONIAE COLONY COUNT >100,000 CFU/ml SENS SENSITIVITY TO FOLLOW 1. KLEBSIELLA PNEUMONIAE Target Route Dose RX AB Cost M.I.C. IQ ------ ----- ------ -- ------ -------- - ------ TRIMET/SULFA S <=2/38 AMPICILLIN/SUL S <=8/4 CEFAZOLIN S <=8 CEFOTAXIME S <=2 CEFTRIAXONE S <=1 CEFEPIME S <=4 CEFUROXIME S <=4 IMIPENEM S <=1 GENTAMICIN S <=4 TOBRAMYCIN S <=4 AMIKACIN S <=16 CIPROFLOXACIN S <=1 LEVOFLOXACIN S <=2 ERTAPENEM S <=1 NITROFURANTOIN S <=32 PIP/TAZO S <=16 S = SENSITIVE I = INTERMEDIATE R = RESISTANT END OF REPORT Last 24 Hours Test 12/29/16 22:11 12/30/16 03:51 12/30/16 11:15 Sodium Level 140 mmol/L 139 mmol/L Potassium Level 3.5 mmol/L 3.4 mmol/L Chloride Level 111 mmol/L 111 mmol/L Carbon Dioxide Level 20 mmol/L 22 mmol/L Anion Gap 9.0 mmol/L 6.0 mmol/L Blood Urea Nitrogen 18 mg/dl 18 mg/dl Creatinine 1.60 mg/dl 1.50 mg/dl Est Creatinine Clear Calc Drug Dose 34.7 ml/min 37.0 ml/min Estimated GFR () 41.9 45.3 Estimated GFR (Non- 36.2 39.1 BUN/Creatinine Ratio 11.3 12.0 Random Glucose 105 mg/dl 122 mg/dl Calcium Level 8.3 mg/dl 8.2 mg/dl Magnesium Level 2.4 mg/dl 2.5 mg/dl Total Bilirubin 1.1 mg/dl 0.9 mg/dl Aspartate Amino Transf (AST/SGOT) 37 U/L 28 U/L Alanine Aminotransferase (ALT/SGPT) 26 U/L 27 U/L Alkaline Phosphatase 160 U/L 157 U/L Total Protein 6.3 gm/dl 6.0 gm/dl Albumin 3.4 gm/dl 3.2 gm/dl Globulin 2.9 gm/dl 2.8 gm/dl Albumin/Globulin Ratio 1.2 1.1 White Blood Count 19.10 K/uL Red Blood Count 3.55 M/uL Hemoglobin 10.3 g/dL Hematocrit 30.7 % Mean Corpuscular Volume 86.5 fL Mean Corpuscular Hemoglobin 29.0 pg Mean Corpuscular Hemoglobin Concent 33.6 g/dl Platelet Count 265 K/uL Mean Platelet Volume 10.5 fL Neutrophils (%) (Auto) 88.0 % Lymphocytes (%) (Auto) 4.0 % Monocytes (%) (Auto) 6.6 % Eosinophils (%) (Auto) 0.5 % Basophils (%) (Auto) 0.1 % Neutrophils # (Auto) 16.81 K/uL Lymphocytes # (Auto) 0.76 K/uL Monocytes # (Auto) 1.27 K/uL Eosinophils # (Auto) 0.09 K/uL Basophils # (Auto) 0.01 K/uL RDW Standard Deviation 45.3 fL RDW Coefficient of Variation 14.4 % Immature Granulocyte % (Auto) 0.8 % Immature Granulocyte # (Auto) 0.16 K/uL Echinocytes 1+ Bedside Glucose 160 mg/dl Assessment and Plan 56-year-old female with Klebsiella sepsis with septic shock with pyelonephritis and obstructive uropathy, worry about possibility of superimposed colitis. Patient be continued on imipenem pending final blood culture identification and sensitivities. Stool studies are pending. Discussed with Critical Care Service. Will follow.
[2016-12-30] MEDS: DOXEPIN HCL 25 MG CAP PO SCH (21:31)
[2016-12-30] MEDS: LORAZEPAM 1 MG TAB PO SCH (21:31)
[2016-12-31] VITALS (7 sets, daily range): BP systolic 117–139; BP diastolic 73–93; PULSE 83–106; TEMP 36.5–36.8; O2SAT 96–98
[2016-12-31] MEDS: IMIPENEM/CILASTATIN IV 500 MG in D5W 100ML IV SCH ×2 (02:07→08:34)
[2016-12-31 05:33] LABS: HEMATOCRIT 31.3 % (37-47); MEAN CELL VOLUME 84.6 fL (80-100); MEAN CORPUSCULAR HEMOGLOBIN 29.2 pg (25-34); MEAN CORPUSCULAR HGB CONC 34.5 g/dl (32-36); MEAN PLATELET VOLUME 10.8 fL (7.4-10.4); PLATELET COUNT 352 K/uL (130-400); WHITE BLOOD COUNT 24.12 K/uL (4.8-10.8)
[2016-12-31] MEDS: LEVOTHYROXINE 88 MCG TAB PO SCH (06:01)
[2016-12-31 06:02] LABS: BASO % 0.1 %; BASO ABS # 0.02 K/uL (0-0.2); COMPLETE YES; ECHINOCYTES 1+; IG% 1.7 %; LYMPH ABS # 1.21 K/uL (1.2-3.4); MONO % 4.7 %; NEUT % 88.5 %
[2016-12-31] MEDS: HEPARIN SOD 5000 UNIT/0.5 ML CARP SQ SCH ×3 (06:02→21:18)
[2016-12-31 06:06] LABS: BUN/CREATININE RATIO 19.7 (10-20); CALCIUM 8.7 mg/dl (8.5-10.1); CREATININE 1.3 mg/dl (0.60-1.20); POTASSIUM 2.8 mmol/L (3.5-5.1)
[2016-12-31] MEDS: CITALOPRAM 20 MG TAB PO SCH (08:33)
--- NOTE | 2016-12-31 09:19 | Progress Note ---
Subjective Date of Service: Dec 31, 2016. Subjective Pt evaluation today including: conversation w/ patient, conversation w/ family , physical exam, chart review Voiding: burger catheter in place 56 year old female admitted with urosepsis due to stone. She had left stent placed and is improving. Urine culture is showing Klebsiella - ID is following and treating. She has been afebrile for 24+ hours. Doing better. Burger intact- urine clear yellow. Problem List Medical Problems: (1) Hydronephrosis with renal and ureteral calculous obstruction Status: Acute (2) UTI (urinary tract infection) Status: Acute Review of Systems Constitutional: No fever, No chills Eyes: No worsening of vision ENT: No hearing loss Respiratory: No cough Cardiac: No chest pain Abdomen: No pain, No nausea Female : + see HPI Heme: No abnormal bleeding/bruising Objective Vital Signs Date Time Temp Pulse Resp B/P (MAP) Pulse Ox O2 Delivery O2 Flow Rate FiO2 12/31/16 08:00 36.8 92 16 139/86 (103) 96 Room Air 12/31/16 08:00 96 Room Air 12/31/16 04:15 36.8 83 16 136/93 (107) 96 Room Air 12/31/16 04:00 Room Air 12/31/16 00:00 36.8 88 20 136/86 (103) 97 Room Air 12/31/16 00:00 Room Air 12/30/16 20:03 36.7 95 18 149/93 (111) 97 Room Air 12/30/16 20:00 Room Air 12/30/16 16:00 Room Air 12/30/16 15:44 36.5 91 16 134/83 (100) 100 Room Air 12/30/16 13:57 78 18 127/78 (94) 100 Room Air 12/30/16 12:03 36.6 89 12/30/16 12:00 Room Air 12/30/16 11:01 91 16 132/91 (105) 96 Room Air 12/30/16 10:00 89 16 119/76 (90) 96 Room Air Physical Exam General Appearance: WD/WN, no apparent distress ENT: hearing grossly normal Respiratory/Chest: no respiratory distress, no accessory muscle use Abdomen: soft Extremities: no pedal edema, no calf tenderness Neurologic/Psychiatric: alert, oriented x 3 Skin: normal color Laboratory Results Last 24 Hours Test 12/30/16 11:15 12/31/16 05:07 Bedside Glucose 160 mg/dl White Blood Count 24.12 K/uL Red Blood Count 3.70 M/uL Hemoglobin 10.8 g/dL Hematocrit 31.3 % Mean Corpuscular Volume 84.6 fL Mean Corpuscular Hemoglobin 29.2 pg Mean Corpuscular Hemoglobin Concent 34.5 g/dl Platelet Count 352 K/uL Mean Platelet Volume 10.8 fL Neutrophils (%) (Auto) 88.5 % Lymphocytes (%) (Auto) 5.0 % Monocytes (%) (Auto) 4.7 % Eosinophils (%) (Auto) 0.0 % Basophils (%) (Auto) 0.1 % Neutrophils # (Auto) 21.33 K/uL Lymphocytes # (Auto) 1.21 K/uL Monocytes # (Auto) 1.13 K/uL Eosinophils # (Auto) 0.01 K/uL Basophils # (Auto) 0.02 K/uL RDW Standard Deviation 44.8 fL RDW Coefficient of Variation 14.4 % Immature Granulocyte % (Auto) 1.7 % Immature Granulocyte # (Auto) 0.42 K/uL Echinocytes 1+ Sodium Level 140 mmol/L Potassium Level 2.8 mmol/L Chloride Level 110 mmol/L Carbon Dioxide Level 24 mmol/L Anion Gap 6.0 mmol/L Blood Urea Nitrogen 26 mg/dl Creatinine 1.30 mg/dl Est Creatinine Clear Calc Drug Dose 42.7 ml/min Estimated GFR () 53.9 Estimated GFR (Non- 46.5 BUN/Creatinine Ratio 19.7 Random Glucose 140 mg/dl Calcium Level 8.7 mg/dl Assessment and Plan Urosepsis w/ pyelo and left ureteral stone. s/p left ureteral stent placement. Pt is doing better. Being transferred to regular floor. ID managing sepsis. No further acute intervention.Will sign off for now. Please recall prn. Will follow up in office to set up surgical management of stone once she is stable. Thank you for the opportunity to participate in the care of this pt. Continued [facility] stay due to: multiple IV medications needed Discharge planning: uncertain
--- NOTE | 2016-12-31 09:22 | Critical Care Progress Note ---
Critical Care Progress Note Date of Service Dec 31, 2016. Attending Dr. Anglin Subjective asymptomatic overnight. Objective as above. no events overnight. Current SOFA Score SOFA Score Response (Comments) Value PaO2/FiO2 (mmHg) < 400 1 SaO2 / FIO2 221 - 301 1 Platelets (x10) > 150 0 Bilirubin (mg/dL) < 1.2 0 Danyel Coma Score 15 0 Level of Hypotension No Hypotension 0 Creatinine (mg/dL) < 1.2 0 Total 2 Assessment & Plan 1- septic shock, resolved. 2- acute pyelonephritis. 3- urolithiasis, stent to the left ureter. 4- bipolar dis. 5- GISEL on CKD. Plan: 1- sepsis with Kleb bacteremia , change Abx to ceftriaxone 2 gm iv daily, 2- dc Imipenem. 3- replete K. 4- ambulate. 5- appreciate all consults involved. 6- transfer to regular floor. discussed on rounds with the staff in details. Consults & Procedures Consultants: urology and CCM. Procedures: ureteral stenting Data Medications: Current Inpatient Medications Medications (Trade) Dose Ordered Sig/Jimmy Route Start Time Stop Time Status Last Admin Dose Admin Ioversol (Optiray 320) 111 ml UD PRN IV 12/28/16 17:45 01/01/17 17:44 Acetaminophen (Tylenol Tab) 650 mg Q4H PRN PO 12/28/16 19:30 01/27/17 19:29 12/29/16 09:55 650 MG Al Hydrox/Mg Hydrox/Simethicone (Maalox Max Susp) 15 ml Q4H PRN PO 12/28/16 19:30 01/27/17 19:29 Magnesium Hydroxide (Milk Of Magnesia Susp) 30 ml Q12H PRN PO 12/28/16 19:30 01/27/17 19:29 Ondansetron HCl (Zofran Inj) 4 mg Q6H PRN IV 12/28/16 19:30 01/27/17 19:29 Polyethylene (Miralax Powder Packet) 17 gm DAILY PRN PO 12/28/16 19:30 01/27/17 19:29 Lorazepam (Ativan Inj) 0.5 mg Q4H PRN IV 12/28/16 19:30 01/27/17 19:29 12/29/16 21:05 0.5 MG Acetaminophen 100 ml @ 400 mls/hr Q8H PRN IV 12/29/16 00:15 01/28/17 00:14 12/29/16 23:59 400 MLS/HR Heparin Sodium (Porcine) (Heparin Sq 5000 Unit/0.5ml) 5,000 unit Q8 SQ 12/29/16 14:00 01/28/17 13:59 12/31/16 06:02 5,000 UNIT Citalopram Hydrobromide (celeXA TAB) 20 mg QAM PO 12/29/16 09:00 01/28/17 08:59 12/31/16 08:33 20 MG Doxepin HCl (Sinequan Cap) 25 mg HS PO 12/29/16 21:00 01/28/17 20:59 12/30/16 21:31 25 MG Menthol (Nice Mendez) 1 mendez PRN PRN PO 12/29/16 18:30 01/28/17 18:29 Levothyroxine Sodium (Synthroid Tab) 88 mcg DAILYBB PO 12/31/16 06:00 01/30/17 05:59 12/31/16 06:01 88 MCG Lorazepam (Ativan Tab) 1 mg HS PO 12/30/16 21:00 01/29/17 20:59 12/30/16 21:31 1 MG Heparin Sodium (Porcine) (Heparin 10 Unit/ ml 5 ml Flush) 5 ml PRN PRN FLUSH 12/31/16 01:00 01/30/17 00:59 Potassium Chloride (Klor-Con Tab) 40 meq BID PO 12/31/16 09:00 01/01/17 21:01 Ceftriaxone Sodium 2000 mg/ Dextrose 70 ml @ 100 mls/hr Q24H IV 12/31/16 08:00 01/10/17 07:59 Vital Signs: Date Time Temp Pulse Resp B/P (MAP) Pulse Ox O2 Delivery O2 Flow Rate FiO2 12/31/16 08:00 36.8 92 16 139/86 (103) 96 Room Air 12/31/16 08:00 96 Room Air 12/31/16 04:15 36.8 83 16 136/93 (107) 96 Room Air 12/31/16 04:00 Room Air 12/31/16 00:00 36.8 88 20 136/86 (103) 97 Room Air 12/31/16 00:00 Room Air 12/30/16 20:03 36.7 95 18 149/93 (111) 97 Room Air 12/30/16 20:00 Room Air 12/30/16 16:00 Room Air 12/30/16 15:44 36.5 91 16 134/83 (100) 100 Room Air 12/30/16 13:57 78 18 127/78 (94) 100 Room Air 12/30/16 12:03 36.6 89 12/30/16 12:00 Room Air 12/30/16 11:01 91 16 132/91 (105) 96 Room Air 12/30/16 10:00 89 16 119/76 (90) 96 Room Air Laboratory Results: Last 24 Hours Test 12/30/16 11:15 12/31/16 05:07 Bedside Glucose 160 mg/dl White Blood Count 24.12 K/uL Red Blood Count 3.70 M/uL Hemoglobin 10.8 g/dL Hematocrit 31.3 % Mean Corpuscular Volume 84.6 fL Mean Corpuscular Hemoglobin 29.2 pg Mean Corpuscular Hemoglobin Concent 34.5 g/dl Platelet Count 352 K/uL Mean Platelet Volume 10.8 fL Neutrophils (%) (Auto) 88.5 % Lymphocytes (%) (Auto) 5.0 % Monocytes (%) (Auto) 4.7 % Eosinophils (%) (Auto) 0.0 % Basophils (%) (Auto) 0.1 % Neutrophils # (Auto) 21.33 K/uL Lymphocytes # (Auto) 1.21 K/uL Monocytes # (Auto) 1.13 K/uL Eosinophils # (Auto) 0.01 K/uL Basophils # (Auto) 0.02 K/uL RDW Standard Deviation 44.8 fL RDW Coefficient of Variation 14.4 % Immature Granulocyte % (Auto) 1.7 % Immature Granulocyte # (Auto) 0.42 K/uL Echinocytes 1+ Sodium Level 140 mmol/L Potassium Level 2.8 mmol/L Chloride Level 110 mmol/L Carbon Dioxide Level 24 mmol/L Anion Gap 6.0 mmol/L Blood Urea Nitrogen 26 mg/dl Creatinine 1.30 mg/dl Est Creatinine Clear Calc Drug Dose 42.7 ml/min Estimated GFR () 53.9 Estimated GFR (Non- 46.5 BUN/Creatinine Ratio 19.7 Random Glucose 140 mg/dl Calcium Level 8.7 mg/dl
[2016-12-31] MEDS: POTASSIUM CHLORIDE 20 MEQ TABCR PO SCH ×2 (09:56→21:15)
[2016-12-31] MEDS: CEFTRIAXONE SOD INJ 2,000 MG in DEXTROSE 5% 50ML 50 ML IV SCH (09:56)
--- NOTE | 2016-12-31 11:56 | Family Medicine Progress Note ---
Progress Note Date of Service Dec 31, 2016. Subjective Pt evaluation today including: conversation w/ patient, physical exam, chart review, lab review Pain: None PO Intake: Good Voiding: no voiding problems, burger catheter in place Doing well today No acute complaints Denies shortness of breath, orthopnea or chest pain Good appetite and intake No concerns of issues raised by nursing staff Additional Comments: A 10 point review of systems was negative unless stated above. Medications Current Inpatient Medications Medications (Trade) Dose Ordered Sig/Jimmy Route Start Time Stop Time Status Last Admin Dose Admin Ioversol (Optiray 320) 111 ml UD PRN IV 12/28/16 17:45 01/01/17 17:44 Acetaminophen (Tylenol Tab) 650 mg Q4H PRN PO 12/28/16 19:30 01/27/17 19:29 12/29/16 09:55 650 MG Al Hydrox/Mg Hydrox/Simethicone (Maalox Max Susp) 15 ml Q4H PRN PO 12/28/16 19:30 01/27/17 19:29 Magnesium Hydroxide (Milk Of Magnesia Susp) 30 ml Q12H PRN PO 12/28/16 19:30 01/27/17 19:29 Ondansetron HCl (Zofran Inj) 4 mg Q6H PRN IV 12/28/16 19:30 01/27/17 19:29 Polyethylene (Miralax Powder Packet) 17 gm DAILY PRN PO 12/28/16 19:30 01/27/17 19:29 Lorazepam (Ativan Inj) 0.5 mg Q4H PRN IV 12/28/16 19:30 01/27/17 19:29 12/29/16 21:05 0.5 MG Acetaminophen 100 ml @ 400 mls/hr Q8H PRN IV 12/29/16 00:15 01/28/17 00:14 12/29/16 23:59 400 MLS/HR Heparin Sodium (Porcine) (Heparin Sq 5000 Unit/0.5ml) 5,000 unit Q8 SQ 12/29/16 14:00 01/28/17 13:59 12/31/16 06:02 5,000 UNIT Citalopram Hydrobromide (celeXA TAB) 20 mg QAM PO 12/29/16 09:00 01/28/17 08:59 12/31/16 08:33 20 MG Doxepin HCl (Sinequan Cap) 25 mg HS PO 12/29/16 21:00 01/28/17 20:59 12/30/16 21:31 25 MG Menthol (Nice Mendez) 1 mendez PRN PRN PO 12/29/16 18:30 01/28/17 18:29 Levothyroxine Sodium (Synthroid Tab) 88 mcg DAILYBB PO 12/31/16 06:00 01/30/17 05:59 12/31/16 06:01 88 MCG Lorazepam (Ativan Tab) 1 mg HS PO 12/30/16 21:00 01/29/17 20:59 12/30/16 21:31 1 MG Heparin Sodium (Porcine) (Heparin 10 Unit/ ml 5 ml Flush) 5 ml PRN PRN FLUSH 12/31/16 01:00 01/30/17 00:59 12/31/16 11:04 5 ML Potassium Chloride (Klor-Con Tab) 40 meq BID PO 12/31/16 09:00 01/01/17 21:01 12/31/16 09:56 40 MEQ Ceftriaxone Sodium 2000 mg/ Dextrose 70 ml @ 100 mls/hr Q24H IV 12/31/16 08:00 01/10/17 07:59 12/31/16 09:56 100 MLS/HR Objective Vital Signs Date Time Temp Pulse Resp B/P (MAP) Pulse Ox O2 Delivery O2 Flow Rate FiO2 12/31/16 09:24 106 117/77 (90) 12/31/16 08:00 36.8 92 16 139/86 (103) 96 Room Air 12/31/16 08:00 96 Room Air 12/31/16 04:15 36.8 83 16 136/93 (107) 96 Room Air 12/31/16 04:00 Room Air 12/31/16 00:00 36.8 88 20 136/86 (103) 97 Room Air 12/31/16 00:00 Room Air 12/30/16 20:03 36.7 95 18 149/93 (111) 97 Room Air 12/30/16 20:00 Room Air 12/30/16 16:00 Room Air 12/30/16 15:44 36.5 91 16 134/83 (100) 100 Room Air 12/30/16 13:57 78 18 127/78 (94) 100 Room Air 12/30/16 12:03 36.6 89 12/30/16 12:00 Room Air Physical Exam General Appearance: WD/WN, no apparent distress Eyes: normal inspection, EOMI ENT: normal ENT inspection, pharynx normal Neck: supple, no adenopathy, no JVD Respiratory/Chest: lungs clear, no respiratory distress Cardiovascular: regular rate, rhythm, no gallop, no murmur Abdomen: normal bowel sounds, non tender, soft Extremities: non-tender, no pedal edema Neurologic/Psychiatric: telegraphic typewriter repairer II-XII nml as tested, alert, normal mood/affect, oriented x 3 Skin: normal color, warm/dry, no rash Lymphatic: no adenopathy Laboratory Results Last 24 Hours Test 12/31/16 05:07 White Blood Count 24.12 K/uL Red Blood Count 3.70 M/uL Hemoglobin 10.8 g/dL Hematocrit 31.3 % Mean Corpuscular Volume 84.6 fL Mean Corpuscular Hemoglobin 29.2 pg Mean Corpuscular Hemoglobin Concent 34.5 g/dl Platelet Count 352 K/uL Mean Platelet Volume 10.8 fL Neutrophils (%) (Auto) 88.5 % Lymphocytes (%) (Auto) 5.0 % Monocytes (%) (Auto) 4.7 % Eosinophils (%) (Auto) 0.0 % Basophils (%) (Auto) 0.1 % Neutrophils # (Auto) 21.33 K/uL Lymphocytes # (Auto) 1.21 K/uL Monocytes # (Auto) 1.13 K/uL Eosinophils # (Auto) 0.01 K/uL Basophils # (Auto) 0.02 K/uL RDW Standard Deviation 44.8 fL RDW Coefficient of Variation 14.4 % Immature Granulocyte % (Auto) 1.7 % Immature Granulocyte # (Auto) 0.42 K/uL Echinocytes 1+ Sodium Level 140 mmol/L Potassium Level 2.8 mmol/L Chloride Level 110 mmol/L Carbon Dioxide Level 24 mmol/L Anion Gap 6.0 mmol/L Blood Urea Nitrogen 26 mg/dl Creatinine 1.30 mg/dl Est Creatinine Clear Calc Drug Dose 42.7 ml/min Estimated GFR () 53.9 Estimated GFR (Non- 46.5 BUN/Creatinine Ratio 19.7 Random Glucose 140 mg/dl Calcium Level 8.7 mg/dl Assessment and Plan 56 year old female admitted with infected proximal UPJ stone and secondary severe sepsis, resolving Blood and urine cultures growing lim-sensitive Klebsiella Did well overnight. No new issues at this time. The plan for her is as follows: Severe Sepsis from Klebsiella - 2/2 infected left Ureteral stone - Day 3 s/p left ureter stent placement by urology - Pansensitive Klebsiella in blood and urine D/C Imipenem. 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 - Family History of renal disease with two parents from CKD, ? vasculitis. - Work up as outpatient. Hypokalemia - Improved to 3.4 today Bipolar Disorder - Continue Citalopram - Continue Lorazepam - Continue Doxepine - Topamax held - Psych recs pending for substitute therapy in the setting of holding Topamax Hypothyroidism - Continue Synthroid DVT Prophylaxis - SCD Knee, ALMA Hose - Heparin 5000 U s.c. TID Code Status - Level I Full Code Disposition - Transfer to Med/Surg - OT and PT evaluations Continued [facility] stay due to: multiple IV medications needed Discharge planning: home Reviewed: Pt Seen/Exam by Me History feeling overwhelmed with everything how it's being done at the hospital no other concerns. Constitutional: denies: fever Respiratory: negative: short of breath Cardiovascular: denies chest pain Gastrointestinal/Abdominal: negative: abdominal pain Genitourinary: negative dysuria General Appearance: no apparent distress Respiratory: lungs clear, no respiratory distress Cardiovascular: regular rate, rhythm Gastrointestinal: normal bowel sounds, non tender, soft Neurologic/Psychiatric: alert, oriented x 3 Skin Characteristics: warm/dry Assessment/Plan Resident Physician Supervision Note: I was present with Dr. Dolan in bedside. I verified the bee history and physical, reviewed labs and image studies, discussed the case with the resident and agree with the findings and care plan.
[2016-12-31] MEDS ORDERED: QUETIAPINE FUMARATE 25 MG TAB PO PRN (15:15)
--- NOTE | 2016-12-31 15:15 | Psychiatric Consultation ---
Consultation Date of Consultation Dec 31, 2016. Identifying Data 56-year-old woman admitted to the hospital with obstructing renal calculi and sepsis. We are consulted to evaluate bipolar disorder and change in mood stabilizer. Information is gathered from the patient, the electronic medical record, and her sister Chepe at the bedside. All are considered to be reliable Chief Complaint Bipolar medication change. History of Present Illness The patient is a 56-year-old woman from [place] with a past history of bipolar disorder currently treated by Dr. Talley. Medical history includes pernicious anemia. She presented to the hospital with abdominal pain nausea and vomiting, and was found to have an obstructing renal calculi. She was taken to surgery about sepsis pseudodementia so she was transferred to ICU. She has been steadily improving in today has been moved to the medical floor. Her psychiatric medications include Topamax, which contributes to the possibility of nephrolithiasis and so this has been discontinued and we are asked to see her to consider alternate mood stabilizers. The patient says that for a long time she was stable on Seroquel but experienced significant weight gain and so it was discontinued. She has had trials of lithium in the past which she admitted to hallucinations. She has been on Topamax since last fall but coincidentally, was also experiencing imbalance in her hypothyroidism requiring medication adjustment. Since April of this year, after adjusting her thyroid medications, she has lost 70 pounds with 8 of those in the last 2 weeks. In terms of her mood, she says that she has had periods of mood instability. She specifically gets irritable and sleepless during which she describes as manic phases. Her last manic episode was in December of last year. She feels that her manic episodes are "horrible , like I'm in hell". Otherwise her mood has been more stable recently but she does not feel that the Topamax is serving her as well as Seroquel has done in the past. She reports having difficult to sleep, not getting enough and struggling with balancing her medications which at times can cause sedation and needing to get up to take her son to work. Her appetite has been poor and as I said she's experienced weight loss. Her anxiety is high but denies any recent panic attacks although has had panic attacks in the past. She denies any current auditory or visual hallucinations. She just does still have times that she feels she is irritable and will fly off the handle at people. She denies clear signs of any OCD but does feel a need to have extreme organization to her closet with hangers all going in the right direction and close ordered according to color. 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 She denies any problems with eating disorders. She denies any thoughts of suicide or homicide. Past Psychiatric History Current OP Treatment: psychiatrist (Dr. Talley in [place]), therapist (Quinten Lang) Prior Psych Hospitalizations: [facility] (in 2008 for suicidal ideation) Access to a Gun: Yes (locked in a safe) Past Medication Trials Seroquel, lithium Past Medical/Surgical History (1) Hydronephrosis with renal and ureteral calculous obstruction (2) Sepsis (3) Pernicious anemia Allergies Allergies: Coded Allergies: Iron Dextran (Unverified Allergy, Unknown, RASH, 12/28/16) Ketamine (Unverified Adverse Reaction, Severe, VERY HIGH BP AND SHAKY, ) RAPID HB. POSSIBLE RXN TO THE KETAMINE FROM SURGERY Home Medications Scheduled Citalopram (Citalopram Hydrobromide), 30 MG PO QAM Cyanocobalamin (Cyanocobalamin), 1 DOSE INJ [id number] Doxepin (Sinequan), 50 MG PO HS Hydrochlorothiazide (Hydrochlorothiazide), 25 MG PO DAILY Levothyroxine Sodium (Synthroid), 88 MCG PO QAM Lorazepam (Ativan), 1 MG PO HS Simvastatin (Zocor), 40 MG PO DAILY Topiramate (Topamax), 100 MG PO QPM Topiramate (Topamax), 50 MG PO QAM Family History Heart disease Hypertension Kidney disease Kidney stones Seizures History of Suicide: No History of Substance Abuse: Yes (Brother drugs and alcohol) Psychiatric History: Yes (mother and grandmother depression) Alcohol Use Alcohol Use In Past 12 Months: No History of alcohol abuse, quit 2 years ago Smoking Use Smoking Status: Current Every Day Smoker Substance History Occasional marijuana smoker Personal History Lives in: [place] with her 19-year-old son Education: graduated college (associates degree in Index and business management) 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 [place] Relationship History: Children: 2 adult Spiritual Affiliation: Hinduism Legal History: none Psychological Trauma History: Denies Hx Traumatic Event Review of Systems Constitutional: denies no symptoms reported, denies see HPI, denies chills, denies diaphoresis, denies fever, denies malaise, denies weakness, denies other Eyes: denies: no symptoms, as stated in HPI, eye pain, tearing, itching, redness, discharge, double vision, visual changes, blurred vision, photophobia, other ENT: denies: no symptoms reported, see HPI, ear pain, ear discharge, loss of hearing, tinnitus, nasal pain, nasal congestion, rhinorrhea, epistaxis, sore throat, stidor, throat swelling, mouth pain, mouth swelling, dental pain, gum swelling, other Cardiovascular: denies: no symptoms reported, see HPI, chest pain, chest tightness, chest pressure, diaphoresis, palpitations, syncope, other Respiratory: denies: no symptoms reported, see HPI, cough, orthopnea, short of breath, stridor, wheezing, sputum production, cyanosis, MAGDALENO, PND, other Gastrointestinal: denies no symptoms reported, denies see HPI, denies abdominal pain, denies constipation, denies diarrhea, denies nausea, denies vomiting, denies other Genitourinary - Female: denies: no symptoms, see HPI, rash, amenorrhea, dysmenorrhea, menorrhagia, metrorrhagia, , vaginal bleeding, vaginal itching, vaginal discharge, vulvadynia, other Musculoskeletal: denies no symptoms reported, denies see HPI, denies back pain , denies gout, denies joint pain, denies joint swelling, denies muscle pain, denies muscle stiffness, denies neck pain, denies other Integumentary: denies no symptoms reported, denies see HPI, denies change in color, denies change in hair/nails, denies dryness, denies lesions, denies lumps , denies rash, denies other Neurologic: denies: no symptoms, see HPI, headache, numbness, paresthesias, pre -existing deficit, seizure, tingling, tremors, general weakness, tics, focal weakness, vertigo, lethargy, memory loss, dizziness, other Endocrine: denies: no symptoms, as stated in HPI, cold intolerance, heat intolerance, hair changes, goiter, polydipsia, polyuria, skin changes, other Hematologic / Lymphatic: denies: no symptoms, as stated in HPI, abnormal clotting, adenopathy, anemia, easy bleeding, easy bruising, gums bleeding, petechiae, other Examination Physical Examination As per Dr. Anglin Vital Signs Vital Signs Past 12 Hours Date Time Temp Pulse Resp B/P (MAP) Pulse Ox O2 Delivery O2 Flow Rate FiO2 12/31/16 14:53 36.6 83 18 124/78 (93) 96 Room Air 12/31/16 11:51 36.5 83 18 118/73 (88) 96 Room Air 12/31/16 11:43 Room Air 12/31/16 09:24 106 117/77 (90) 12/31/16 08:00 36.8 92 16 139/86 (103) 96 Room Air 12/31/16 08:00 96 Room Air 12/31/16 04:15 36.8 83 16 136/93 (107) 96 Room Air 12/31/16 04:00 Room Air Laboratory Results Last 24 Hours Test 12/31/16 05:07 White Blood Count 24.12 K/uL Red Blood Count 3.70 M/uL Hemoglobin 10.8 g/dL Hematocrit 31.3 % Mean Corpuscular Volume 84.6 fL Mean Corpuscular Hemoglobin 29.2 pg Mean Corpuscular Hemoglobin Concent 34.5 g/dl Platelet Count 352 K/uL Mean Platelet Volume 10.8 fL Neutrophils (%) (Auto) 88.5 % Lymphocytes (%) (Auto) 5.0 % Monocytes (%) (Auto) 4.7 % Eosinophils (%) (Auto) 0.0 % Basophils (%) (Auto) 0.1 % Neutrophils # (Auto) 21.33 K/uL Lymphocytes # (Auto) 1.21 K/uL Monocytes # (Auto) 1.13 K/uL Eosinophils # (Auto) 0.01 K/uL Basophils # (Auto) 0.02 K/uL RDW Standard Deviation 44.8 fL RDW Coefficient of Variation 14.4 % Immature Granulocyte % (Auto) 1.7 % Immature Granulocyte # (Auto) 0.42 K/uL Echinocytes 1+ Sodium Level 140 mmol/L Potassium Level 2.8 mmol/L Chloride Level 110 mmol/L Carbon Dioxide Level 24 mmol/L Anion Gap 6.0 mmol/L Blood Urea Nitrogen 26 mg/dl Creatinine 1.30 mg/dl Est Creatinine Clear Calc Drug Dose 42.7 ml/min Estimated GFR () 53.9 Estimated GFR (Non- 46.5 BUN/Creatinine Ratio 19.7 Random Glucose 140 mg/dl Calcium Level 8.7 mg/dl Mental Examination During interview pt is: alert and oriented, cooperative Appearance: appropriately groomed Eye contact is: good Motor behavior is: no abnormal motor movements Speech: normal in rate, rhythm & volume Affect: mood congruent Mood is: other (neutral) Thought process: circumstantial Thought content: reality based without delusions Suicidal thought are: denied Homicidal thoughts are: denied Hallucinations: denies auditory, denies visual Cognition: memory grossly intact, attention grossly intact, language grossly intact Intelligence estimated to be: average Insight: good Judgement: good Impression / Recommendations Impression 56-year-old woman on Topamax admitted with an obstructing renal calculi. They have therefore discontinued Topamax and we are asked to address a new mood stabilizer. It sounds as if her bipolar disorder is relatively stable right now although does have periods of irritability which is the hallmark of her manic episodes. We reviewed potential alternatives to Topamax including Neurontin, Depakote and Lamictal. She has agreed to a trial of Lamictal. Risks , benefits reviewed and accepted including the risk for Terrell-Cristhian syndrome. We will start her on 25 mg twice a day here and this will need to be titrated as an outpatient. I will have the liaison nurse return to facilitate a sooner appointment with her outpatient psychiatrist and be sure that the consultation is sent to his attention. I will also write for Seroquel 50 mg every 4 hours when necessary's des in the event she becomes destabilized and the transition to Lamictal which will take as much as 6 weeks to reach a therapeutic level. I've explained this to her and she voices understanding. She has asked that I call her son who is her identified POA which I have done and explained the medication changes to him. He had no questions and was thankful for the call. Inventory Assets Strengths: Support from family, good outpatient psychiatric care Risk Factors Assessment : Yes /single/: Yes Higher / Fall in social status: No Access to guns: Yes Health problems: Yes Mental Health Diagnoses: Yes Substance use disorders: No Previous psychiatric stay: Yes Protective Factors Assessment Sabianism beliefs: Yes : No Responsible for young children: No Employed: Yes Stable relationships: Yes Supportive family: Yes Recommendations (1) Bipolar disorder 12/31/16 - Topamax DC'd in the setting of nephrolithiasis - Patient has agreed to a trial of Lamictal which I will start at 25 mg twice a day and will need to be titrated as an outpatient - Will ask the liaison nurse to return to have her sign a release of information in order to move her appointment with Dr. Talley up - Will also write for Seroquel 50 mg by mouth every 4 hours when necessary des in the event she experiences some symptoms and the transition to Lamictal. Has been reviewed with Dr. Mary burton
--- NOTE | 2016-12-31 17:45 | Infectious Disease Progress Nt ---
Progress Note Date of Service Dec 31, 2016. Subjective Pt evaluation today including: conversation w/ patient, physical exam, chart review, lab review, review of studies, conversation w/ retail wireless sales consultant, review of inpatient medication list Patient offering no new complaints today. Remains afebrile. Hemodynamically stable. No increase in shortness of breath. All Other Systems: Reviewed and Negative Medications RUN DATE: 12/31/16 [facility] LAB PAGE 1 RUN TIME: 803 Specimen Inquiry PATIENT: JOANNA VELÁSQUEZ LOC: [facility] U # : [id number] AGE/SX: 56/F ROOM: [facility] REG : 12/28/[address]: Lali Carlin M.D. : 1960 BED: 1 DIS : STATUS: ADM IN TLOC: SPEC #: [id number] MERCEDEZ: 12/28/161420 STATUS: COMP REQ #: [id number] RECD: 12/28/16-[address]: Nette Rodriguez M.D. SOURCE: BLOOD ENTR: 12/28/16-173 [facility] DR: Esthela Fallon, Assigned [facility]: ORDERED: BLOOD CULTURE Procedure Result Verified Site BLD CULT Final 12/31/16-0804 Organism 1 KLEBSIELLA PNEUMONIAE SENS SENSITIVITY TO FOLLOW Phoned Positive Blood Culture Gram Stain Report to [facility] ICU on 12/29/16 At 0835 By ULYSSES. Results were verbalized back to ULYSSES. 1. KLEBSIELLA PNEUMONIAE Target Route Dose RX AB Cost M.I.C. IQ ------ ----- ------ -- ------ -------- - ------ TRIMET/SULFA S <=2/38 AMPICILLIN/SUL S <=8/4 CEFAZOLIN S <=8 CEFOTAXIME S <=2 CEFTRIAXONE S <=1 CEFEPIME S <=4 CEFUROXIME S <=4 IMIPENEM S <=1 GENTAMICIN S <=4 TOBRAMYCIN S <=4 AMIKACIN S <=16 CIPROFLOXACIN S <=1 LEVOFLOXACIN S <=2 ERTAPENEM S <=1 PIP/TAZO S <=16 S = SENSITIVE I = INTERMEDIATE R = RESISTANT END OF REPORT Current Inpatient Medications Medications (Trade) Dose Ordered Sig/Jimmy Route Start Time Stop Time Status Last Admin Dose Admin Ioversol (Optiray 320) 111 ml UD PRN IV 12/28/16 17:45 01/01/17 17:44 Acetaminophen (Tylenol Tab) 650 mg Q4H PRN PO 12/28/16 19:30 01/27/17 19:29 12/29/16 09:55 650 MG Al Hydrox/Mg Hydrox/Simethicone (Maalox Max Susp) 15 ml Q4H PRN PO 12/28/16 19:30 01/27/17 19:29 Magnesium Hydroxide (Milk Of Magnesia Susp) 30 ml Q12H PRN PO 12/28/16 19:30 01/27/17 19:29 Ondansetron HCl (Zofran Inj) 4 mg Q6H PRN IV 12/28/16 19:30 01/27/17 19:29 Polyethylene (Miralax Powder Packet) 17 gm DAILY PRN PO 12/28/16 19:30 01/27/17 19:29 Lorazepam (Ativan Inj) 0.5 mg Q4H PRN IV 12/28/16 19:30 01/27/17 19:29 12/29/16 21:05 0.5 MG Acetaminophen 100 ml @ 400 mls/hr Q8H PRN IV 12/29/16 00:15 01/28/17 00:14 12/29/16 23:59 400 MLS/HR Heparin Sodium (Porcine) (Heparin Sq 5000 Unit/0.5ml) 5,000 unit Q8 SQ 12/29/16 14:00 01/28/17 13:59 12/31/16 13:26 5,000 UNIT Citalopram Hydrobromide (celeXA TAB) 20 mg QAM PO 12/29/16 09:00 01/28/17 08:59 12/31/16 08:33 20 MG Doxepin HCl (Sinequan Cap) 25 mg HS PO 12/29/16 21:00 01/28/17 20:59 12/30/16 21:31 25 MG Menthol (Nice Mendez) 1 mendez PRN PRN PO 12/29/16 18:30 01/28/17 18:29 Levothyroxine Sodium (Synthroid Tab) 88 mcg DAILYBB PO 12/31/16 06:00 01/30/17 05:59 12/31/16 06:01 88 MCG Lorazepam (Ativan Tab) 1 mg HS PO 12/30/16 21:00 01/29/17 20:59 12/30/16 21:31 1 MG Heparin Sodium (Porcine) (Heparin 10 Unit/ ml 5 ml Flush) 5 ml PRN PRN FLUSH 12/31/16 01:00 01/30/17 00:59 12/31/16 11:04 5 ML Potassium Chloride (Klor-Con Tab) 40 meq BID PO 12/31/16 09:00 01/01/17 21:01 12/31/16 09:56 40 MEQ Ceftriaxone Sodium 2000 mg/ Dextrose 70 ml @ 100 mls/hr Q24H IV 12/31/16 08:00 01/10/17 07:59 12/31/16 09:56 100 MLS/HR Lamotrigine (Lamictal Tab) 25 mg BID PO 12/31/16 21:00 01/30/17 20:59 Quetiapine Fumarate (seroQUEL TAB) 50 mg Q4H PRN PO 12/31/16 15:15 01/30/17 15:14 Objective Vital Signs Date Time Temp Pulse Resp B/P (MAP) Pulse Ox O2 Delivery O2 Flow Rate FiO2 12/31/16 14:53 36.6 83 18 124/78 (93) 96 Room Air 12/31/16 11:51 36.5 83 18 118/73 (88) 96 Room Air 12/31/16 11:43 Room Air 12/31/16 09:24 106 117/77 (90) 12/31/16 08:00 36.8 92 16 139/86 (103) 96 Room Air 12/31/16 08:00 96 Room Air 12/31/16 04:15 36.8 83 16 136/93 (107) 96 Room Air 12/31/16 04:00 Room Air 12/31/16 00:00 36.8 88 20 136/86 (103) 97 Room Air 12/31/16 00:00 Room Air 12/30/16 20:03 36.7 95 18 149/93 (111) 97 Room Air 12/30/16 20:00 Room Air Physical Exam General Appearance: WD/WN, no apparent distress Eyes: normal inspection, sclerae normal ENT: normal ENT inspection, pharynx normal Neck: supple, no adenopathy, trachea midline Respiratory/Chest: lungs clear, normal breath sounds, no respiratory distress Cardiovascular: regular rate, rhythm, no gallop, no murmur Abdomen: normal bowel sounds, non tender, soft, no organomegaly Extremities: non-tender, normal inspection, no calf tenderness Neurologic/Psychiatric: alert, normal mood/affect, oriented x 3 Skin: normal color, no rash Lymphatic: no adenopathy Laboratory Results Last 24 Hours Test 12/31/16 05:07 White Blood Count 24.12 K/uL Red Blood Count 3.70 M/uL Hemoglobin 10.8 g/dL Hematocrit 31.3 % Mean Corpuscular Volume 84.6 fL Mean Corpuscular Hemoglobin 29.2 pg Mean Corpuscular Hemoglobin Concent 34.5 g/dl Platelet Count 352 K/uL Mean Platelet Volume 10.8 fL Neutrophils (%) (Auto) 88.5 % Lymphocytes (%) (Auto) 5.0 % Monocytes (%) (Auto) 4.7 % Eosinophils (%) (Auto) 0.0 % Basophils (%) (Auto) 0.1 % Neutrophils # (Auto) 21.33 K/uL Lymphocytes # (Auto) 1.21 K/uL Monocytes # (Auto) 1.13 K/uL Eosinophils # (Auto) 0.01 K/uL Basophils # (Auto) 0.02 K/uL RDW Standard Deviation 44.8 fL RDW Coefficient of Variation 14.4 % Immature Granulocyte % (Auto) 1.7 % Immature Granulocyte # (Auto) 0.42 K/uL Echinocytes 1+ Sodium Level 140 mmol/L Potassium Level 2.8 mmol/L Chloride Level 110 mmol/L Carbon Dioxide Level 24 mmol/L Anion Gap 6.0 mmol/L Blood Urea Nitrogen 26 mg/dl Creatinine 1.30 mg/dl Est Creatinine Clear Calc Drug Dose 42.7 ml/min Estimated GFR () 53.9 Estimated GFR (Non- 46.5 BUN/Creatinine Ratio 19.7 Random Glucose 140 mg/dl Calcium Level 8.7 mg/dl Assessment and Plan 56-year-old female with Klebsiella sepsis with septic shock with pyelonephritis and obstructive uropathy, worry about possibility of superimposed colitis. Patient be continued on Ceftriaxone for now, can be transitioned to oral ciprofloxacin in the near future complete therapy. Likely will require more prolonged therapy given nephrolithiasis.
[2016-12-31] MEDS: LORAZEPAM 1 MG TAB PO SCH (21:13)
[2016-12-31] MEDS: DOXEPIN HCL 25 MG CAP PO SCH (21:16)
[2017-01-01 00:12] VITALS: BP 112/74; PULSE 96; TEMP 38; O2SAT 95
[2017-01-01 05:05] VITALS: BP 132/82; PULSE 96; TEMP 37.1; O2SAT 95
[2017-01-01] MEDS: HEPARIN SOD 5000 UNIT/0.5 ML CARP SQ SCH ×3 (05:27→21:29)
[2017-01-01] MEDS: LEVOTHYROXINE 88 MCG TAB PO SCH (05:28)
[2017-01-01 06:28] LABS: BASO % 0.2 %; BASO ABS # 0.03 K/uL (0-0.2); COMPLETE YES; EOS % 1.4 %; HEMATOCRIT 32.5 % (37-47); IG% 3.7 %; LYMPH % 15.7 %; MEAN CELL VOLUME 85.1 fL (80-100); MEAN CORPUSCULAR HEMOGLOBIN 29.3 pg (25-34); MEAN CORPUSCULAR HGB CONC 34.5 g/dl (32-36); MEAN PLATELET VOLUME 9.7 fL (7.4-10.4); PLATELET COUNT 464 K/uL (130-400); RED BLOOD COUNT 3.82 M/uL (4.2-5.4)
[2017-01-01 07:03] LABS: BUN/CREATININE RATIO 19.9 (10-20); CALCIUM 8.1 mg/dl (8.5-10.1); CREATININE 1.2 mg/dl (0.60-1.20); POTASSIUM 2.9 mmol/L (3.5-5.1)
[2017-01-01 07:45] VITALS: BP 122/75; PULSE 98; TEMP 37.2; O2SAT 96
--- NOTE | 2017-01-01 09:02 | Family Medicine Progress Note ---
Progress Note Date of Service Jan 01, 2017. Subjective feeling agitated this morning. didn't get much sleep at night due to the roommate being sick had fever last night as well no urinary symptoms Respiratory: No shortness of breath Cardiovascular: No chest pain Abdomen: No pain, No nausea Objective Physical Exam General Appearance: no apparent distress Respiratory/Chest: lungs clear, no respiratory distress Cardiovascular: regular rate, rhythm Abdomen: normal bowel sounds, non tender, soft Neurologic/Psychiatric: alert, oriented x 3 Skin: warm/dry Assessment and Plan 56 year old female admitted with infected proximal UPJ stone and secondary severe sepsis, resolving Blood and urine cultures growing lim-sensitive Klebsiella Severe Sepsis from Klebsiella - 2/2 infected left Ureteral stone - Day 4 s/p left ureter stent placement by urology - Pansensitive Klebsiella in blood and urine - Fever again last night. Continue IV ceftriaxone. - ID following - to transition to oral cipro eventually. - Do not anticipate need for PICC line; discontinue on discharge. 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 - Family History of renal disease with two parents from CKD, ? vasculitis. - Work up as outpatient. Hypokalemia - Replace. - with h/o hypertension. ? hyperaldosteronism. check aldosterone level Bipolar Disorder - Continue Citalopram, Lorazepam, Doxepine - Topamax d/acacia - Seen by psychiatry. Appreciate input. Started on Lamictal. Follow for sign of Davian Cristhian syndrome. Seroquel prn for des. Hypothyroidism - Continue Synthroid DVT Prophylaxis - SCD Knee, ALMA Hose - Heparin 5000 U s.c. TID Code Status - Level I Full Code
[2017-01-01] MEDS: CEFTRIAXONE SOD INJ 2,000 MG in DEXTROSE 5% 50ML 50 ML IV SCH (09:10)
[2017-01-01] MEDS: CITALOPRAM 20 MG TAB PO SCH (09:10)
[2017-01-01] MEDS: POTASSIUM CHLORIDE 20 MEQ TABCR PO SCH ×4 (10:45→21:36)
[2017-01-01 12:09] VITALS: BP 117/74; PULSE 84; TEMP 37; O2SAT 94
[2017-01-01 16:09] VITALS: BP 129/83; PULSE 90; TEMP 37.2; O2SAT 94
[2017-01-01] MEDS: LORAZEPAM 1 MG TAB PO SCH (21:34)
[2017-01-01] MEDS: DOXEPIN HCL 25 MG CAP PO SCH (21:35)
[2017-01-02 00:08] VITALS: BP 121/77; PULSE 85; TEMP 37.4; O2SAT 96
[2017-01-02] MEDS: LEVOTHYROXINE 88 MCG TAB PO SCH (05:43)
[2017-01-02] MEDS: HEPARIN SOD 5000 UNIT/0.5 ML CARP SQ SCH ×2 (05:46→13:27)
[2017-01-02 05:47] LABS: MEAN CELL VOLUME 87.2 fL (80-100); MEAN CORPUSCULAR HEMOGLOBIN 30.2 pg (25-34); MEAN CORPUSCULAR HGB CONC 34.7 g/dl (32-36); MEAN PLATELET VOLUME 9.6 fL (7.4-10.4); PLATELET COUNT 431 K/uL (130-400); RED BLOOD COUNT 3.67 M/uL (4.2-5.4); WHITE BLOOD COUNT 15.16 K/uL (4.8-10.8)
[2017-01-02 06:21] LABS: BUN/CREATININE RATIO 16.2 (10-20); CALCIUM 8.4 mg/dl (8.5-10.1); CREATININE 1.1 mg/dl (0.60-1.20)
[2017-01-02 06:25] LABS: BASO % 0.4 %; BASO ABS # 0.06 K/uL (0-0.2); COMPLETE YES; EOS % 1.8 %; IG% 6.3 %; LYMPH % 18.1 %; LYMPH ABS # 2.75 K/uL (1.2-3.4); MONO % 10.3 %; NEUT % 63.1 %
[2017-01-02 08:00] VITALS: BP 127/72; PULSE 85; TEMP 36.9; O2SAT 96
[2017-01-02] MEDS: CEFTRIAXONE SOD INJ 2,000 MG in DEXTROSE 5% 50ML 50 ML IV SCH (08:04)
[2017-01-02] MEDS: CITALOPRAM 20 MG TAB PO SCH (08:04)
[2017-01-02] MEDS ORDERED: CIPR-255 PO ×2 (09:25→10:07)
[2017-01-02] MEDS ORDERED: QUET1TAB32 PO (09:25)
[2017-01-02] MEDS ORDERED: POTA-74 PO (09:25)
[2017-01-02] MEDS ORDERED: LAMO25TA PO (09:25)
--- NOTE | 2017-01-02 09:30 | Discharge Instructions ---
Discharge Instructions Date of Service Jan 02, 2017. Admission Reason for Admission: Kidney Stone, Sepsis Discharge Discharge Diagnosis / Problem: Sepsis due to kidney infection Discharge Goals Goal(s): Improve disease control Activity Recommendations Activity Limitations: resume your previous activity . Instructions / Follow-Up Instructions / Follow-Up Follow up with family physician in one week Follow up with Dr. Newton (urologist) with- in 2 weeks Follow up with Dr. Talley (Psychiatrist) physician medical library assistant as scheduled on 06 January at 1.30pm. Please get blood test done for blood counts done in 2-3 days to follow up on your blood counts. Current Hospital Diet Patient's current hospital diet: Regular Diet Discharge Diet Recommended Diet: Low Sodium Diet (2gm Na) Procedures Procedures Performed: Cystoscopy, Left ureteral stent placement Pending Studies Studies pending at discharge: yes List of pending studies: Aldosterone level Medical Emergencies . Who to Call and When: Medical Emergencies: If at any time you feel your situation is an emergency, please call 911 immediately. . Non-Emergent Contact Non-Emergency issues call your: Primary Care Provider Call Non-Emergent contact if: you have a fever, temperature is above 100.5, you have any medication questions If you notice any rash . . "Provider Documentation" section prepared by Lali Cralin. . VTE Core Measure Inpt VTE Proph given/why not?: SCD's
--- NOTE | 2017-01-02 09:58 | Discharge Summary ---
Discharge Summary Date of Service Jan 02, 2017. Discharge Summary Admission Date: Dec 28, 2016 at 19:38 Discharge Date: Jan 02, 2017 Discharge Disposition: Home Principal Diagnosis: Severe Sepsis Immunizations: Have You Had Influenza Vaccine: Unknown History of Tetanus Vaccine?: Unknown History of Pneumococcal: Unknown History of Hepatitis B Vaccine: Unknown Procedures: Left ureteral stent placement Consultations: Urology - Dr. Newton ID - Dr. Brown Critical care - Dr. Anglin Psychiatry - [facility] [place] Medication Reconciliation New Medications: Ciprofloxacin Hcl (Cipro) 500 Mg Tab 500 MG PO BID for 14 Days, #28 TAB Lamotrigine (Lamictal) 25 Mg Tab 25 MG PO BID for 30 Days, #60 TAB Quetiapine Fumarate (Seroquel) 50 Mg Tab 50 MG PO DAILY PRN for Agitation, #10 TAB Continued Medications: Citalopram (Citalopram Hydrobromide) 20 Mg Tab 30 MG PO QAM Cyanocobalamin (Cyanocobalamin) 1,000 Mcg/Ml Inj 1 DOSE INJ [id number] Doxepin (Sinequan) 50 Mg Cap 50 MG PO HS, CAP Levothyroxine Sodium (Synthroid) 88 Mcg Tab 88 MCG PO QAM Lorazepam (Ativan) 1 Mg Tab 1 MG PO HS, TAB Simvastatin (Zocor) 40 Mg Tab 40 MG PO DAILY, TAB Discontinued Medications: Hydrochlorothiazide (Hydrochlorothiazide) 25 Mg Tab 25 MG PO DAILY Topiramate (Topamax) 50 Mg Tab 100 MG PO QPM for 30 Days, TAB Topiramate (Topamax) 50 Mg Tab 50 MG PO QAM, TAB Referrals At Discharge Follow up Referrals: Family Practice Referral - Within 1 Week with Padmini Shafer M.D. Physician Referral - 01/06/17 with Ab Talley M.D. Urologist Referral - Within 1-2 Weeks with Geo Newton M.D. Discharge Exam slept well overnight but had moments of feeling anxious. had loose stool this am. no fever Review of Systems: Constitutional: No fever Respiratory: No shortness of breath Cardiovascular: No chest pain Abdomen: + problem reported (stool this morning was loose), No pain, No nausea Physical Exam: General Appearance: no apparent distress (calm) Respiratory/Chest: lungs clear, no respiratory distress Cardiovascular: regular rate, rhythm Abdomen / GI: normal bowel sounds, non tender, soft Neurologic/Psychiatric: alert, normal mood/affect, oriented x 3 Skin: warm/dry Hospital Course HPI - Dora is a 56 yo F with hypertension, bipolar disorder, and hypothyroidism who presents with feeling unwell. She reports she has felt unwell the last few days and this morning was nauseated and threw up all her medications. She reports she had a fever the last few days which was 104F today. She had some vague back pain, but reports she usually does not feel any pain. She was septic upon arrival with hypotension, a WBC of 28 and a fever of 38.9. She was found to have a 5mm obstructing kidney stone on CT scan. She has been started on broad spectrum abx. She currently feels somewhat better, and is sitting comfortably speaking full sentences. She denied any past hx of kidney stones. CT ABDOMEN/PELVIS ON ADMISSION IMPRESSION: 1. 5 mm obstructing calculus proximal left ureter at the left ureteropelvic junction. 2. Edematous change of left kidney with infiltrative change of the left renal perinephric fat. 3. the possibility of superimposed pyelonephritis must be considered. Hospital course - Severe Sepsis Admitted to ICU for severe sepsis with septic shock. Needed pressure support. Given imipenem IV and later switched to IV ceftriaxone. Had emergent placement of stent in left ureter for obstructing ureteric stone. Grew lim-sensitive Klebsiella in blood x 2 and urine culture. Has been afebrile in last 24 hours. Seen by ID - Recommended cipro for discharge. WBC count down to 15k (from 28 on admission). To have repeat levels done in 2-3 days. Left Ureteral stone - Topamax d/acacia for possibly contributing to stone - Needs outpatient urology follow-up for stent removal Diarrhea - C.diff negative - Add psyllium husk for persistent symptoms. 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 vasculitis. - Work up as outpatient. Hypokalemia - K of 2.7 on admission - Resolved on discharge - Pending aldosterone level. - BP controlled at the time of discharge and so discontinued HCTZ considering the extent of hypokalemia while going home on cipro. Bipolar Disorder - Continued Citalopram, Lorazepam, Doxepine - Topamax d/acacia - Evaluated by psychiatrist for replacement medication for Topamax. Started on Lamictal 25mgs bid. No rashes at the time of discharge. Instructed to contact PCP with any rashes. While uptitrating lamictal, to use seroquel prn use for des/agitation. Stable at the time of discharge. Total Time Spent: Greater than 30 minutes (40) This includes examination of the patient, discharge planning, medication reconciliation, and communication with other providers. Discharge Instructions Please refer to the electronic Patient Visit Report (Discharge Instructions) for additional information. Additional Copies To Geo Newton M.D.; Padmini Shafer M.D.; Ab Talley M.D.
[2017-01-02] MEDS ORDERED: CHOLESTYRAMINE LIGHT 4 GM PKT PO ONE (10:00)
[2017-01-02 11:26] VITALS: BP 127/72; PULSE 85; TEMP 36.9; O2SAT 96
[2017-01-13] MEDS ORDERED: NYSCR30 EXT (11:53)
[2017-01-13] MEDS ORDERED: LAMO25TA PO (11:53)
[2017-01-13] MEDS ORDERED: CPR500 PO (11:53)
[2017-01-13] MEDS ORDERED: QUET1TAB32 PO (11:53)
[2017-01-21] MEDS ORDERED: OXYC-57 PO (08:48)
== END 2017-01-02 17:11 | disposition home or self-care (01) | DRG 871 ==
LOC: C.EDB 17:15 → C.MSICU 19:38 → CANRESERV 19:54 → ENRESERV 19:54 → C.MED 12-31 09:22
PROVIDERS: ADMIT Hospitalist; ATTEND Family Medicine
PROC: 0T778DZ Dilation of Left Ureter with Intraluminal Device, Via Natural or Artificial Opening Endoscopic (ICD-10-PCS; principal; 2016-12-28 19:45)
DX: A41.59 Other Gram-negative sepsis (principal); R65.21 Severe sepsis with septic shock; N17.9 Acute kidney failure, unspecified; N10 Acute pyelonephritis; N20.2 Calculus of kidney with calculus of ureter; B96.1 Klebsiella pneumoniae [K. pneumoniae] as the cause of diseases classified elsewhere; E87.6 Hypokalemia; K62.89 Other specified diseases of anus and rectum; I72.8 Aneurysm of other specified arteries; I12.9 Hypertensive chronic kidney disease with stage 1 through stage 4 chronic kidney disease, or unspecified chronic kidney disease; Z81.8 Family history of other mental and behavioral disorders; E03.9 Hypothyroidism, unspecified; F31.9 Bipolar disorder, unspecified; F17.200 Nicotine dependence, unspecified, uncomplicated; F10.21 Alcohol dependence, in remission; Z79.899 Other long term (current) drug therapy; Z84.1 Family history of disorders of kidney and ureter; Z82.49 Family history of ischemic heart disease and other diseases of the circulatory system; Z82.0 Family history of epilepsy and other diseases of the nervous system; Z81.1 Family history of alcohol abuse and dependence; Z81.3 Family history of other psychoactive substance abuse and dependence; N18.9 Chronic kidney disease, unspecified

== ENCOUNTER → 2017-01-11 | Outpatient (CLI) | payer OTHER ==
[~2017-01-11] MED LIST: ATV/1 PO; CIPR-255 PO; CLX/20 PO; CPR500 PO; CYNI1000 INJ; DOXE50CA3 PO; LAMO25TA PO; NYSCR30 EXT; QUET1TAB32 PO; SIMV40TA2 PO; SYN88 PO
--- NOTE | 2017-01-11 13:18 | DIAGNOSTIC IMAGING REPORT ---
KUB HISTORY: Nephrolithiasis. COMPARISON: Abdomen and pelvis CT 12/28/2006. FINDINGS: The bowel gas pattern is unremarkable. There are no dilated loops of small bowel to suggest an obstruction. There is a 4 mm stone within the left kidney. There is a left ureteral stent which appears in good position. No definite ureteral calculi. Round calcification in the right deep pelvis is consistent with a phlebolith. Calcified splenic artery aneurysms are again noted with the largest measuring 2 cm. No definite right renal calculi. No pneumoperitoneum or pneumatosis. IMPRESSION: 1. A 4 mm stone within the left kidney. 2. Left ureteral stent appears to be in good position. 3. No ureteral calculi identified. Electronically signed by: Kg Juan M.D. 01/11/2017 1:17 PM Dictated Date/Time: 01/11/2017 1:15 PM
== END | disposition home or self-care (01) ==
LOC: C.RAD 12:45
PROVIDERS: ATTEND Urology
DX: N20.0 Calculus of kidney (principal)

== ENCOUNTER → 2017-01-20 | Outpatient (CLI) | payer OTHER ==
[~2017-01-20] MED LIST changes: -CIPR-255 PO; +OXYC-57 PO
--- NOTE | 2017-01-20 18:34 | DIAGNOSTIC IMAGING REPORT ---
KUB CLINICAL HISTORY: Nephrolithiasis. COMPARISON STUDY: CT of the abdomen and pelvis December 28, 2016 and KUB January 11, 2017. FINDINGS: Note is again made of calcified splenic artery aneurysms which measure up to 2 cm. A left ureteral stent remains in place. The 4 mm left-sided calculus is now at the ureteropelvic junction. No additional urinary calculi are identified. Bowel gas pattern is normal. IMPRESSION: 4 mm left ureteropelvic junction calculus. Left ureteral stent in place. Electronically signed by: Cecil Meléndez M.D. 01/20/2017 6:33 PM Dictated Date/Time: 01/20/2017 6:30 PM
== END | disposition home or self-care (01) ==
LOC: C.RAD 17:28
PROVIDERS: ATTEND Urology
DX: N20.0 Calculus of kidney (principal); Z96.0 Presence of urogenital implants

== ENCOUNTER → 2017-01-21 | Day surgery (SDC) | payer OTHER ==
[2017-01-13 11:55] VITALS: Ht 162.6 cm; Wt 65.9 kg
[~2017-01-21] VITALS: Ht 162.6 cm; Wt 65.9 kg
[~2017-01-21] MED LIST changes: +ATROPINE SULFATE 0.1 MG/ML 5ML SYR IV PRN; +CIPROFLOXACIN 400MG / D5W IV SCH; +DEXAMETHASONE SOD INJ 4 MG/ML VIAL ONE; +EpHEDrine SULFATE 50MG/5ML SYR ONE; +EpHEDrine SULFATE INJ 50 MG/ML AMP IV PRN; +FENTANYL CITRATE INJ 50 MCG/1 ML 2 ML VIAL ONE; +LACTATED RINGER'S 1000ML 1,000 ML IV SCH; +LIDOCAINE HCL 2% 2 ML VIAL (20MG/ML) ONE; +MIDAZOLAM HCL 1 MG/ML 2ML VIAL ONE; +ONDANSETRON INJ 2 MG/ML 2 ML VIAL ONE; +OXYCODONE/ACETAMINOPHEN 5-325 TAB PO PRN; +PROPOFOL IV EMULSION 10 MG/ML 20 ML VIAL IV ONE; +SCOPOLAMINE 1.5 MG TDSY TD ONE
--- NOTE | 2017-01-21 07:58 | History & Physical Bridge Note ---
H&P Re-Evaluation Bridge Note: I have examined the patient, reviewed the History & Physical and in the interval since the performance of the History & Physical I have noted the following changes of clinical significance: No changes noted
--- NOTE | 2017-01-21 08:47 | [facility] Operative Report ---
Operative Report Operative Date Jan 21, 2017. Pre-Operative Diagnosis LEFT RENAL STONE Post-Operative Diagnosis SAME Procedure(s) Performed LEFT ESWL Surgeon MABLE Certified Adapted Physical Educator Surgeon(s) NONE Estimated Blood Loss NONE Findings LEFT ESWL Specimens NONE Drains LEFT STENT Anesthesia GENERAL Complication(s) None Disposition Recovery Room / PACU Indications LEFT RENAL STONE Description of Procedure Patient was identified in the preoperative holding area, appropriate informed consent was reviewed and completed and the patient was transported to the operating suite. Upon arrival appropriate preoperative antibiotics were administered and general anesthesia induced. The patient was placed in supine position and the stone was localized under fluoroscopy. A total of [__2500_] shocks were delivered to the stone. There appeared to be good fragmentation of the stone. Details of this procedure can be found on the [facility] information sheet. At the conclusion of the case the patient was extubated and taken to the PACU in stable condition. There were no complications. I attest to the content of the Intraoperative Record and any orders documented therein. Any exceptions are noted below.
--- NOTE | 2017-01-21 08:51 | Discharge Instructions-SurgCtr ---
Discharge Instructions Date of Service Jan 21, 2017. Visit Reason for Visit: STONE Discharge Discharge Diagnosis / Problem: LEFT STONE Discharge Goals Goal(s): Therapeutic intervention Activity Recommendations Activity Limitations: resume your previous activity (TAKE IT EASY TODAY) Lifting Limitations: none Exercise/Sports Limitations: rest today Shower/Bathe: no limitations Driving or Machine Use: resume 1 day after discharge Anesthesia . Post Anesthesia Instructions: If you have had General Anesthesia or IV Sedation: * Do not drive today. * Resume driving when surgeon permits. * Do not make important decisions or sign legal documents today. * Call surgeon for: 1. Temperature elevations greater than 101 degrees F. 2. Uncontrollable pain. 3. Excessive bleeding. 4. Persistent nausea and vomiting. 5. Medication intolerance (nausea, vomiting or rash). * For nausea and vomiting use only clear liquids such as: tea, soda, bouillon until nausea subsides, then gradually increase diet as tolerated. * If you have any concerns or questions, call your surgeon's office. If physician is unavailable and it is an emergency, call 911 or go to the nearest emergency room. . Instructions / Follow-Up Instructions / Follow-Up MEDICATIONS: Resume previous medications unless instructed otherwise by your surgeon. Resume pre-ESWL medication except for aspirin, coumadin or other blood thinners. __ Toradol 10 mg every 6 hours for initial pain. __ Lortab 5 mg 1-2 every 4 hours for pain. _X_ Percocet 5 mg 1-2 every 4 hours for pain. __ Macrodantin 50 mg x 3 a day. __ Flomax 1 tab daily one half (1/2) hour after supper. SPECIAL CARE INSTRUCTIONS: 1. Get KUB (x-ray) _X_ day before or day of office visit and bring x-ray to office __ get x-ray 2 days before and tell office you are getting x-rays when you call for the appointment. 2. Strain ALL urine. 3. Please call if you have a fever, chills, severe pain, or constant dribbling of urine. 4. Office phone number . FOLLOW UP VISIT: Please call the office to schedule a follow-up appointment at . Diet Recommendations Home Diet: resume previous diet Procedures Procedures Performed: LEFT ESWL Pending Studies Studies pending at discharge: no Medical Emergencies . Who to Call and When: Medical Emergencies: If at any time you feel your situation is an emergency, please call 911 immediately. . Non-Emergent Contact Non-Emergency issues call your: Urologist Call Non-Emergent contact if: temperature is above 101.5, your pain is not controlled . . "Provider Documentation" section prepared by Nayan Cortez. . [place] Drug Monitoring Program Search Results: patient reviewed within database
--- NOTE | 2017-01-21 10:03 | Anesthesia Progress Nt - [facility] ---
Anesthesia Post Op Note Date & Time Jan 21, 2017 at 10:03 Vital Signs Pain Intensity: 0 Vital Signs Past 12 Hours Date Time Temp Pulse Resp B/P (MAP) Pulse Ox O2 Delivery O2 Flow Rate FiO2 01/21/17 09:20 36.6 65 12 137/76 96 Mask 6 01/21/17 06:58 36.9 62 16 123/80 (94) 99 Room Air Notes Mental Status: alert / awake / arousable, participated in evaluation Pt Amnestic to Procedure: Yes Nausea / Vomiting: adequately controlled Pain: adequately controlled Airway Patency, RR, SpO2: stable & adequate BP & HR: stable & adequate Hydration State: stable & adequate Anesthetic Complications: no major complications apparent
[2017-01-21 10:10] VITALS: TEMP 36.4
[2017-01-21 10:33] VITALS: BP 107/70; PULSE 58; O2SAT 98
== END | disposition home or self-care (01) ==
LOC: X.SURG 06:45
PROVIDERS: ATTEND Urology
DX: N20.1 Calculus of ureter (principal); N20.0 Calculus of kidney; D51.0 Vitamin B12 deficiency anemia due to intrinsic factor deficiency; E78.5 Hyperlipidemia, unspecified; F17.200 Nicotine dependence, unspecified, uncomplicated; E78.00 Pure hypercholesterolemia, unspecified; E03.9 Hypothyroidism, unspecified; F41.9 Anxiety disorder, unspecified; Z87.59 Personal history of other complications of pregnancy, childbirth and the puerperium; Z82.49 Family history of ischemic heart disease and other diseases of the circulatory system; Z84.1 Family history of disorders of kidney and ureter; Z80.3 Family history of malignant neoplasm of breast; Z80.49 Family history of malignant neoplasm of other genital organs; Z87.442 Personal history of urinary calculi; I10 Essential (primary) hypertension